=== PATIENT | female | born 1985 | race Caucasian/White ===

== ENCOUNTER 2020-05-19 01:21 | Emergency (ER) | payer BC, SELFPAY ==
[2020-05-19] VITALS (20 sets, daily range): BP systolic 113–134; BP diastolic 70–94; PULSE 62–94; RESP 14–26; TEMP 36.8; O2SAT 97–100
--- NOTE | ~2020-05-19 | CT_ITS ---
EXAMINATION: CT abdomen pelvis w con DATE: 05/19/2020 04:01 INDICATION: Umbilical pain. Leukocytosis. TECHNIQUE: Computed tomography (CT) of the abdomen and pelvis was performed with 100 cc Omnipaque 350 intravenous contrast. The dose-length product was 611.55 mGy-cm. Automated exposure control and iter ative reconstruction technique were employed. COMPARISON: None. FINDINGS: Lung bases are unremarkable. Heart size is normal. No significant pleural or pericardial ef fusion. No significant vascular abnormality. No lymphadenopathy. The liver, spleen, pancreas, adrenal glands and left kidney are unremarkable. There is mild fullness of the right renal collecting system and ureter, although no obstructing mass or stone is identified. There is bladder wall thickening. There is a menstrual cup in the pelvis. There are bilateral ovaria n cysts. There are uterine fibroids. Nonobstructive bowel gas pattern. Retroaortic left renal vein. G allbladder is present. IMPRESSION: 1. Bladder wall thickening. Consider correlation with urinalysis to exclude cystitis. 2: Mild fullness of the right renal collecting system and ureter without obstructing stone or mass. 3: Bilateral ovarian cysts, measuring 2.2 cm on the left. Uterine fibroids. Reviewed, dictated and finalized at location A. IMPRESSION: 1. Bladder wall thickening. Consider correlation with urinalysis to exclude cys titis. 2: Mild fullness of the right renal collecting system and ureter without obstr ucting stone or mass. 3: Bilateral ovarian cysts, measuring 2.2 cm on the left. Uterine fibroids.
--- NOTE | ~2020-05-19 | US_ITS ---
EXAMINATION: US pelvic complete DATE: 05/19/2020 05:48 INDICATION: Pelvic pain. Patient has menstrual cup in place. Comparison:CT dated 05/19/2020 TECHNIQUE: Multiple transabdominal and endovaginal sonographic images of the pelvis performed. FINDINGS: The uterus measures 9.8 x 4.2 x 4.8 cm.. There are uterine fibroids, largest measuring 2.9 x 2 x 2.5 cm. The endometrial complex measures 6 mm. The right ovary measures 3 x 1.8 x 1.8 cm and the left ovary measures 3.2 x 2.2 x 2.9 cm. There are bilateral ovarian cyst measuring 1.7 cm on the right and 2.2 cm on the left. There is normal Doppler signal in the ovaries. There is no free fluid in the pelvis. There are no abnormal masses seen on either side. IMPRESSION: 1. Small bilateral ovarian cysts, largest measuring 2.2 cm and the left ovary. 2: Uterine fibroids. Reviewed, dictated and finalized at location A.
--- NOTE | 2020-05-19 01:25 | ECG_ITS ---
Measurements Intervals [place] Rate: 66 P: 37 RI: 102 QRS: 50 QRSD: 85 T: 38 QT: 380 QTc: 400 Interpretive Statements SINUS RHYTHM WITH SINUS ARRHYTHMIA WITH SHORT RI INTERVAL BORDERLINE ECG Electronically Signed On 05-19-2020 8:27:46 CDT by Florencio Nieves D.O.
--- NOTE | 2020-05-19 01:25 | ED.ALLEREA ---
HPI - Allergic Reaction General Chief complaint: Allergic Reaction Stated complaint: Allergic reaction, throat swelling Time Seen by Provider: 05/19/20 01:25 Source: patient and family Mode of arrival: ambulatory Limitations: no limitations History of Present Illness HPI narrative: Patient is a 35-year-old female that presents for evaluation of rash, tingling feeling in throat, patient is concerned she is having an allergic reaction. Patient reports that she has extreme allergic reaction to mold. Patient states that she felt like her throat was spasming and thus came in for evaluation. She reports itching rash to her abdomen and thorax. She denies new soaps, lotions or detergents. She has numerous allergies to pollen, mold, etc. She denies any food or drug allergies. She denies any new medications. She did take 50 of Benadryl prior to coming to the emergency department for evaluation. Patient also states she has mild abdominal cramping and patient states she is on her menstrual cycle. She denies dysuria or hematuria. Patient currently taking prednisone prescribed by her primary care doctor for allergies. Related Data Home Medications Medication Instructions Recorded Confirmed albuterol sulfate 1 - 2 inh INHALATION Q4-6H PRN 05/19/20 cetirizine [Zyrtec] 20 mg PO BID 05/19/20 epinephrine [Auvi-Q] 0.3 mg IM ONCE 05/19/20 famotidine 40 mg PO BID 05/19/20 omalizumab [Xolair] 0 mg SUBCUT ONCE 05/19/20 prednisone 20 mg PO DIRECTED 05/19/20 triamcinolone acetonide [Nasacort] 2 spray INTRANASAL DAILY 05/19/20 Allergies Allergy/AdvReac Type Severity Reaction Status Date / Time montelukast [From Singulair] AdvReac Headache Verified 05/19/20 06:16 Review of Systems Review of Systems: Narrative: CONSTITUTIONAL: Denies fever, chills, or sweats. ENT: Denies rhinorrhea, congestion, sore throat, or otalgia. CARDIOVASCULAR: Denies chest pain, palpitations, or edema. RESPIRATORY: Denies cough or dyspnea. GASTROINTESTINAL: Reports mild abdominal pain, nausea without vomiting GENITOURINARY: Denies dysuria or hematuria. SKIN: Denies rash or itching. MUSCULOSKELETAL: Denies back pain, joint pain, or myalgia. NEUROLOGIC: Denies headache, numbness, or weakness. [facility] Past Medical History Medical History Concussion Pelvic fracture Seasonal allergies Social History Social History (Updated 05/19/20 @ 04:03 by Nevaeh Malhotra MD) Smoking status: Never smoker Alcohol intake: never Substance use: never Living arrangements: with family Gender identity (if verbalized by the patient): Female Exam Narrative: Exam Narrative: GENERAL: Awake, alert, conversant HEAD: Normocephalic, atraumatic. EYES: PERRLA and EOMI. ENT: Nares clear, no rhinorrhea or epistaxis. Mucous membranes moist. NECK: Supple. CHEST: No respiratory distress, breathing even and non labored HEART: Regular rate, sinus rhythm ABDOMEN:Non distended, mild periumbilical tenderness, guarding present, no rebound or rigidity EXTREMITIES: Normal range of motion. No edema. SKIN: Warm, dry, few, scattered urticaria to chest, lower abdomen and bilateral flanks NEURO:No focal deficits. Alert and oriented x3 Course Vital Signs Vital signs: Vital Signs Temperature 36.8 C 05/19/20 01:29 Pulse Rate 73 05/19/20 01:29 Respiratory Rate 14 05/19/20 01:29 Blood Pressure 134/94 H 05/19/20 01:29 Pulse Oximetry 100 05/19/20 01:29 Temperature 36.8 C 05/19/20 01:29 Pulse Rate 64 05/19/20 06:45 Respiratory Rate 20 05/19/20 06:45 Blood Pressure 115/76 05/19/20 06:45 Pulse Oximetry 97 05/19/20 06:45 MDM - Allergic Reaction MDM Narrative Medical decision making narrative: Patient presented for evaluation of hives, strange feeling her in her throat and concern for possible allergic reaction. Patient also having some mild abdominal pain without peritoneal signs. Patient currentl
[2020-05-19] MEDS: SODIUM CHLORIDE 0.9% IV 1,000 ML 999 ML IV CONT (01:50)
[2020-05-19] MEDS: methylPREDNISolone SOD SUCC 125 MG VIAL IV PUSH (01:50)
[2020-05-19] MEDS: FAMOTIDINE 20 MG/2 ML VIAL IV PUSH (01:52)
[2020-05-19] MEDS: ONDANSETRON INJ 4 MG/2 ML VIAL IV PUSH ×2 (01:54→03:44)
[2020-05-19] MEDS: diphenhydrAMINE HCl INJ 50 MG/ML VIAL IV PUSH (01:56)
[2020-05-19 02:03] LABS: Basophils Percent Auto 0.2 % (0.2-1.2); Hematocrit 39.2 % (37.0-47.0); Hemoglobin 13.6 g/dL (12.0-15.0); Immature Granulocyte Percent A 0.5 % (0-0.5); Lymphocytes Absolute Auto 2.73 K/mm3 (0.9-3.2); Lymphocytes Percent Auto 14.8 % (18.3-44.2); Mean Corpuscular HGB Conc 34.7 g/dl (32-36); Mean Corpuscular Hemoglobin 28.5 pg (26-34); Mean Corpuscular Volume 82.2 fl (80-100); Mean Platelet Volume 9.8 fl (7.4-10.4); Monocytes Absolute Auto 1.8 K/mm3 (0.1-0.6); Monocytes Percent Auto 9.7 % (2.6-8.5); Neutrophils Absolute Auto 13.8 K/mm3 (1.3-6.7); Neutrophils Percent Auto 74.8 % (45.5-73.1); Platelet Count Result 305 k/mm3 (150-375); Red Blood Count 4.77 M/mm3 (4.2-5.4); Red Cell Distribution Width 13.2 % (11.5-14.5); White Blood Count 18.5 K/mm3 (4.5-10.0)
[2020-05-19 02:11] LABS: Anion Gap 6 mmol/L (8-16); Blood Urea Nitrogen 12 mg/dL (7-17); Carbon Dioxide 25 mmol/L (22-30); Chloride 105 mmol/L (98-107); Estimated CRCL calculation 98 ml/min; Estimated Glomerular Filt Rate > 60; Glucose 127 mg/dL (65-105); Potassium 3.6 mmol/L (3.4-5.0); Sodium 136 mmol/L (137-145)
[2020-05-19] MEDS: EPINEPHrine HCL INJ 1 MG/ML AMPUL 0.3 MG IM (02:12)
--- NOTE | 2020-05-19 02:19 | PC.NURSE ---
PT ASKED BY THIS RN TO TRY AGAIN TO PROVIDE URINE SAMPLE. PT STATES THAT HE WILL TRY, BUT HE DOESN'T THINK HE CAN PROVIDE A URINE SAMPLE AT THIS TIME. THIS RN SUGGESTED TO PT THAT A STRAIGHT CATHETERIZATION COULD BE AN ALTERNATIVE. PT REFUSING TO BE STRAIGHT CATHETERIZED AT THIS TIME.
[2020-05-19] MEDS: MORPHINE SULFATE (*CRX) 4 MG/ML INJ IV PUSH (03:45)
[2020-05-19 03:48] LABS: Add Urine Microscopic? YES; Appearance Urine Clear (Clear); Bilirubin Urine Negative (Negative); Blood Urine 1+ (Negative); Color Urine Colorless (Yellow); Glucose Urine UA Negative (Negative); Ketones Urine Negative (Negative); Leukocyte Esterase Ur Negative LEU/UL (Negative); Nitrate Urine Negative (Negative); Protein Urine Negative (Negative); RBC Urine 0-2 /hpf (0-2); Squamous Epithelial Cell Urine Rare /hpf (Few); Urobilinogen Urine Negative mg/dL (<2.0)
[2020-05-19 03:50] LABS: Specific Grav Ur 1.004 (1.001-1.035)
[2020-05-19 04:20] LABS: Alanine Aminotransferase 15 U/L (4-35); Albumin Level 4.1 g/dL (3.5-5.1); Alkaline Phosphatase 51 U/L (38-126); Aspartate Amino Transferase 17 U/L (14-36); Bilirubin,Total 0.4 mg/dL (0.2-1.3); Lipase 143 U/L (23-300)
== END 2020-05-19 07:54 | disposition home or self-care (01) ==
PROVIDERS: Emergency Provider Emergency Medicine
DX: T78.40XA Allergy, unspecified, initial encounter (principal); R10.84 Generalized abdominal pain; N83.202 Unspecified ovarian cyst, left side; N83.201 Unspecified ovarian cyst, right side; D25.9 Leiomyoma of uterus, unspecified; R93.41 Abnormal radiologic findings on diagnostic imaging of renal pelvis, ureter, or bladder
CPT/HCPCS: 36415; 74177; 76856; 80048; 81001; 81025; 82040; 82247; 83690; 84075; 84155; 84450; 84460; 85025; 93005; 96361; 96372; 96374; 96375; 96376; 99284; J0171; J1200; J2270; J2405; J2930; J7030; Q9967

== ENCOUNTER 2020-05-25 02:16 | Emergency (ER) | payer BC, SELFPAY ==
--- NOTE | ~2020-05-25 | XR_ITS ---
EXAMINATION: XR chest 2V EXAM DATE: 05/25/2020 02:56 INDICATION: Palpitations, chest discomfort. TECHNIQUE: Frontal and lateral projections of the chest obtained and reviewed. There is no prior bridgette dy for comparison. FINDINGS: The lungs are clear. There are no pleural effusions. The cardiomediastinal silhouette is within normal limits. There is no pneumothorax suspected. The bones and soft tissues are unremarkab le. IMPRESSION: No acute cardiopulmonary findings. Reviewed, dictated and finalized at location A.
[2020-05-25 02:19] VITALS: BP 144/87; PULSE 84; RESP 15; TEMP 36.3; O2SAT 100
--- NOTE | 2020-05-25 02:25 | ECG_ITS ---
Measurements Intervals [place] Rate: 77 P: 20 VA: 100 QRS: 48 QRSD: 88 T: 50 QT: 376 QTc: 427 Interpretive Statements SINUS RHYTHM WITH SHORT VA INTERVAL INCOMPLETE RIGHT BUNDLE BRANCH BLOCK BORDERLINE ST ABNORMALITY- ANTERIOR LEADS BASELINE WANDER- I, II, AVR, V3 BORDERLINE ECG Electronically Signed On 05-29-2020 8:02:43 CDT by Florencio Nieves D.O.
[2020-05-25 03:00] VITALS: BP 128/83; PULSE 77; RESP 16; O2SAT 99
[2020-05-25 03:01] LABS: Basophils Percent Auto 0.3 % (0.2-1.2); Eosinophils Absolute Auto 0.2 K/mm3 (0-0.3); Eosinophils Percent Auto 1.5 % (0-4.4); Hematocrit 41.9 % (37.0-47.0); Hemoglobin 14.6 g/dL (12.0-15.0); Immature Granulocyte Absolute 0.08 K/mm3 (0.00-0.031); Immature Granulocyte Percent A 0.6 % (0-0.5); Lymphocytes Absolute Auto 5.75 K/mm3 (0.9-3.2); Lymphocytes Percent Auto 40.7 % (18.3-44.2); Mean Corpuscular HGB Conc 34.8 g/dl (32-36); Mean Corpuscular Hemoglobin 28.3 pg (26-34); Mean Corpuscular Volume 81.2 fl (80-100); Mean Platelet Volume 9.5 fl (7.4-10.4); Monocytes Percent Auto 7.4 % (2.6-8.5); Neutrophils Percent Auto 49.5 % (45.5-73.1); Platelet Count Result 289 k/mm3 (150-375); Red Blood Count 5.16 M/mm3 (4.2-5.4); Red Cell Distribution Width 12.9 % (11.5-14.5); White Blood Count 14.1 K/mm3 (4.5-10.0)
[2020-05-25 03:04] LABS: Prothrombin Time 12.8 Seconds (11.1-14.7)
[2020-05-25 03:05] LABS: Anion Gap 9 mmol/L (8-16); Blood Urea Nitrogen 9 mg/dL (7-17); Carbon Dioxide 30 mmol/L (22-30); Chloride 100 mmol/L (98-107); Estimated Glomerular Filt Rate > 60; Glucose 86 mg/dL (65-105); Partial Thromboplastin Time 24.8 SECONDS (22.3-36.8); Potassium 3.2 mmol/L (3.4-5.0); Sodium 139 mmol/L (137-145)
[2020-05-25 03:17] LABS: Troponin I < 0.012 ng/mL (0.000-0.034)
[2020-05-25 03:30] LABS: Platelet Estimate Adequate (Adequate)
[2020-05-25 03:31] LABS: Atypical Lymphocytes Present
[2020-05-25 04:00] VITALS: BP 125/85; PULSE 69; RESP 12; O2SAT 99
[2020-05-25] MEDS: ACETAMINOPHEN 500 MG TABLET 1000 MG PO (04:01)
--- NOTE | 2020-05-25 04:34 | ED.ARRPALP ---
HPI - Arrhythmia/Palpitations General Chief Complaint: Arrhythmia/Palpitations Stated Complaint: elevated heart rate Time Seen by Provider: 05/25/20 02:24 History of Present Illness HPI narrative: Patient is a 35-year-old female who presents ER with palpitations. Began earlier in the evening around 7:54 PM. Heart rate got up to 120 bpm but then went down to the 80s. It is associated some mild chest pressure. No fevers or chills or sweats. No runny nose/sore throat or productive cough. No shortness of breath. She does not feel like her throat swelling like it was all the night when she was here for a allergic reaction. Patient then was able to go to bed. She woke up and was still feeling some anxiousness and chest tightness and thought she come be evaluated. Related Data Home Medications Medication Instructions Recorded Confirmed albuterol sulfate 1 - 2 inh INHALATION Q4-6H PRN 05/19/20 cetirizine [Zyrtec] 20 mg PO BID 05/19/20 epinephrine [Auvi-Q] 0.3 mg IM ONCE 05/19/20 famotidine 40 mg PO BID 05/19/20 omalizumab [Xolair] 0 mg SUBCUT ONCE 05/19/20 prednisone 20 mg PO DIRECTED 05/19/20 triamcinolone acetonide [Nasacort] 2 spray INTRANASAL DAILY 05/19/20 Allergies Allergy/AdvReac Type Severity Reaction Status Date / Time montelukast [From Singulair] AdvReac Headache Verified 05/19/20 06:16 Review of Systems Review of Systems: All systems reviewed & are unremarkable except as noted in HPI and below Constitutional: Constitutional: Denies chills, Denies fever(s) and Denies weakness ENT: Denies nasal congestion and Denies sore throat Cardiovascular: Cardiovascular: Reports chest pain, Reports rapid heart rate and Denies radiating jaw, neck or arm pain Respiratory: Respiratory: Denies cough, Denies dyspnea and Denies wheezing Gastrointestinal: Gastrointestinal: Denies abdominal pain, Denies nausea and Denies vomiting [facility] Past Medical History Medical History (Updated 05/25/20 @ 04:39 by Kristopher Cordero MD) Concussion Pelvic fracture Seasonal allergies Surgical History Surgical History (Updated 05/25/20 @ 04:35 by Kristopher Cordero MD) No history of previous surgery Social History Social History (Updated 05/19/20 @ 04:03 by Nevaeh Malhotra MD) Smoking status: Never smoker Alcohol intake: never Substance use: never Gender identity (if verbalized by the patient): Female Exam Narrative: Exam Narrative: GENERAL: Well-appearing, well-nourished, and in no acute distress. HEAD: Normocephalic, atraumatic. EYES: PERRL and EOMI. ENT: Mucous membranes moist. CHEST: Clear to auscultation. No respiratory distress. HEART: Regular rate and rhythm. Normal peripheral pulses. ABDOMEN: Soft, nontender, nondistended. EXTREMITIES: Normal range of motion. No edema. NEURO: Alert and oriented x3. PSYCH: Normal mood and affect. Course Course Emergency Course: Unremarkable evaluation. Discharge home. Vital Signs Vital signs: Vital Signs Temperature 97.3 F L 05/25/20 02:19 Pulse Rate 84 05/25/20 02:19 Respiratory Rate 15 05/25/20 02:19 Blood Pressure 144/87 H 05/25/20 02:19 Pulse Oximetry 100 05/25/20 02:19 Temperature 97.3 F L 05/25/20 02:19 Pulse Rate 84 05/25/20 02:19 Respiratory Rate 15 05/25/20 02:19 Blood Pressure 144/87 H 05/25/20 02:19 Pulse Oximetry 100 05/25/20 02:19 MDM - Arrhythmia/Palpitations Lab Data Result diagrams: 05/25/20 02:47 05/25/20 02:47 Labs: Lab Results 05/25/20 05/25/20 05/25/20 Range/Units 02:47 02:47 02:47 WBC 14.1 H (4.5-10.0) K/mm3 RBC 5.16 (4.2-5.4) M/mm3 Hgb 14.6 (12.0-15.0) g/dL Hct 41.9 (37.0-47.0) % MCV 81.2 (80-100) fl MCH 28.3 (26-34) pg MCHC 34.8 (32-36) g/dl RDW 12.9 (11.5-14.5) % Plt Count 289 (150-375) k/mm3 MPV 9.5 (7.4-10.4) fl Immature Gran % (Auto) 0.6 H (0-0.5) % Neut % (Auto) 49.5 (45.5-73.1) % L
[2020-05-25 04:50] VITALS: BP 129/83; PULSE 71; RESP 17; O2SAT 99
== END 2020-05-25 05:00 | disposition home or self-care (01) ==
PROVIDERS: Emergency Provider Emergency Medicine
DX: R00.2 Palpitations (principal); I45.10 Unspecified right bundle-branch block; R94.31 Abnormal electrocardiogram [ECG] [EKG]
CPT/HCPCS: 36415; 71046; 80048; 84484; 85025; 85610; 85730; 93005; 99284; A9270

== ENCOUNTER 2020-07-14 08:41 | Outpatient (NON) | payer BC, SELFPAY ==
[2020-07-16 16:41] LABS: SARS-CoV-2 RNA PCR Negative
== END 2020-07-14 08:42 ==
LOC: ANHCOVIDDT 08:43
PROVIDERS: PCP Nurse Practitioner Family; Visit Provider Nurse Practitioner Family
DX: Z20.828 Contact with and (suspected) exposure to other viral communicable diseases (principal)
CPT/HCPCS: 87635; C9803; U0003

== ENCOUNTER 2020-08-03 14:44 | Emergency (ER) | payer BC, SELFPAY ==
[2020-08-03] VITALS (7 sets, daily range): BP systolic 120–142; BP diastolic 72–95; PULSE 89–106; RESP 16–22; TEMP 36.2; O2SAT 97–100
--- NOTE | 2020-08-03 15:17 | ED.ALLEREA ---
HPI - Allergic Reaction General Chief complaint: Allergic Reaction Stated complaint: allergic reaction for 8 days Time Seen by Provider: 08/03/20 15:06 Source: patient Mode of arrival: ambulatory Limitations: no limitations History of Present Illness HPI narrative: 35 years old white female complaining of chest tightness, throat tightness and itching hives started 8 days ago. Patient been managed by an interlocking tower operator and last time was seen by him 3 weeks ago. Patient requesting Decadron, Benadryl, Pepcid, and epinephrine. Currently patient on Zyrtec 20 mg twice a day, Pepcid 40 mg twice a day. Related Data Home Medications Medication Instructions Recorded Confirmed albuterol sulfate 1 - 2 inh INHALATION Q4-6H PRN 05/19/20 cetirizine [Zyrtec] 20 mg PO BID 05/19/20 epinephrine [Auvi-Q] 0.3 mg IM ONCE 05/19/20 famotidine 40 mg PO BID 05/19/20 omalizumab [Xolair] 0 mg SUBCUT ONCE 05/19/20 triamcinolone acetonide [Nasacort] 2 spray INTRANASAL DAILY 05/19/20 Allergies Allergy/AdvReac Type Severity Reaction Status Date / Time montelukast [From Singulair] AdvReac Headache Verified 08/03/20 15:01 Review of Systems Review of Systems: Narrative: CONSTITUTIONAL: Denies fever, chills, or sweats. EYES: Denies visual changes, redness, or discharge. ENT: Denies rhinorrhea, congestion, sore throat, or otalgia. CARDIOVASCULAR: Denies chest pain, palpitations, or edema. RESPIRATORY: Denies cough or dyspnea. GASTROINTESTINAL: Denies abdominal pain, nausea, vomiting, or diarrhea. GENITOURINARY: Denies dysuria or hematuria. SKIN: Itching rash MUSCULOSKELETAL: Denies back pain, joint pain, or myalgia. NEUROLOGIC: Denies headache, numbness, or weakness. PSYCHIATRIC: Denies anxiety or depression. [facility] Past Medical History Medical History Concussion Pelvic fracture Seasonal allergies Surgical History Surgical History No history of previous surgery Social History Social History Smoking status: Never smoker Alcohol intake: never Substance use: never Gender identity (if verbalized by the patient): Female Exam Narrative: Exam Narrative: General appearance: Well-developed, well-nourished, patient looks very comfortable, oxygenation on room air 100% Skin: Normal color, no rash Head: Normocephalic, nontraumatic Eyes: Clear conjunctiva ENT: Oropharynx normal, ears normal, nose normal Neck: Supple, nontender Chest and respiratory: Airway patent, no respiratory distress, no accessory muscle use Heart: Regular rate/rhythm Abdomen: Soft, nontender, no organomegaly, quiet bowel sounds Vascular: Normal peripheral pulses, normal capillary refill. Musculoskeletal: Normal range of motion, nontender back Neurologic: Alert and oriented ?3, SPEECH LANGUAGE PATHOLOGIST ASSISTANT is normal as tested, no gross motor deficit Course Course Emergency Course: Stable Vital Signs Vital signs: Vital Signs Temperature 36.2 C L 08/03/20 14:48 Pulse Rate 104 H 08/03/20 14:48 Respiratory Rate 19 08/03/20 14:48 Blood Pressure 135/91 H 08/03/20 14:48 Pulse Oximetry 100 08/03/20 14:48 Temperature 36.2 C L 08/03/20 14:48 Pulse Rate 96 08/03/20 18:01 Respiratory Rate 20 08/03/20 18:01 Blood Pressure 130/77 08/03/20 18:01 Pulse Oximetry 100 08/03/20 18:01 MDM - Allergic Reaction MDM Narrative Medical decision making narrative: Chronic allergy Critical Care Time Critical Care Time Critical Care Time: No Discharge Plan Discharge Clinical Impression: Allergic reaction Qualifiers: Encounter type: initial en
[2020-08-03] MEDS: EPINEPHrine HCL INJ 1 MG/ML AMPUL 0.3 MG IM (15:33)
[2020-08-03] MEDS: FAMOTIDINE 20 MG/2 ML VIAL 40 MG IV PUSH (15:33)
[2020-08-03] MEDS: diphenhydrAMINE HCl INJ 50 MG/ML VIAL IV PUSH (15:34)
== END 2020-08-03 19:17 | disposition home or self-care (01) ==
PROVIDERS: Emergency Provider Emergency Medicine; PCP Nurse Practitioner Family
DX: T78.40XA Allergy, unspecified, initial encounter (principal)
CPT/HCPCS: 96372; 96374; 96375; 99284; J0171; J1100; J1200

== ENCOUNTER 2020-11-07 21:51 | Emergency (ER) | payer BC, SELFPAY ==
[2020-11-07 21:54] VITALS: BP 135/90; PULSE 86; RESP 20; TEMP 37; O2SAT 100
--- NOTE | 2020-11-07 22:33 | PC.NURSE ---
pt to triage nurse I am going to go home, i dont want to wait. Triage nurse explained that she is the next person in line and will get pulled o a room as soon as possible if she wanted to stay. PT states I only came b/c my allergen dr told me to, i dont know. i think im going home. if it gets worse i live 10 minutes away i will come back. I dont even know what you can do for me.
== END 2020-11-07 23:06 | disposition left against medical advice (07) ==
LOC: ANHED 22:39
PROVIDERS: PCP Nurse Practitioner Family
DX: R22.1 Localized swelling, mass and lump, neck (principal)
CPT/HCPCS: 99199

== ENCOUNTER 2023-05-14 19:11 | Outpatient (NON) | payer BC, SELFPAY | END 2023-05-14 19:12 | disposition home or self-care (01) | LOC: ANHGOSHLAB 19:13 | PROVIDERS: PCP Family Medicine; Visit Provider Family Medicine | DX: R30.0 Dysuria (principal) | CPT/HCPCS: 87077; 87086; 87088; 87186 ==

== ENCOUNTER 2025-04-27 10:39 | Outpatient (RCR) | payer BC, SELFPAY ==
[2025-04-27 10:50] VITALS: BMI 25.8
[2025-04-27 10:51] VITALS: BMI 25.8
--- NOTE | 2025-04-27 15:34 | PCDIET ---
04/27/25: MNT Consult note faxed to referring provider at [facility]
== END 2025-07-24 10:46 | disposition home or self-care (01) ==
LOC: ANHDMC 10:39
PROVIDERS: PCP Family Medicine; Visit Provider Nurse Practitioner
DX: G90.A Postural orthostatic tachycardia syndrome [POTS] (principal); Q79.60 Ehlers-Danlos syndrome, unspecified; Z91.018 Allergy to other foods; Z71.3 Dietary counseling and surveillance
CPT/HCPCS: 97802

== ENCOUNTER 2025-08-09 20:48 | Emergency (ER) | payer BC, SELFPAY ==
--- OUTSIDE RECORDS SUMMARY | 2025-08-08 14:00 | XMS_ITS | Encounter Summary ---
Author Organization [facility] Address [address] [facility] [place] [address] Care Team Providers Care Site Lead Name Role Phone Luann Valdovinos [facility] Primary Care Provi murtaza Pooja Moe MD Unavailable [phone] Reason for Referral * Consultation (Routine) - Authorized Specialty Diagnoses / Procedures Referred By Tonya ragsdale Referred To Contact Diagnoses POTS (postural orthostatic tachycardia syndrome) EDS (Maryam-Danlos syndrome) ([facility]) Small fiber neuropathy Other fatigue Pooja Moe MD [address] [place] [address] Phone: tel: fax: Kory Pyle DO [address] [facility] [address] [place] [address] Phone: tel: fax: Referral ID Status Reason Start Date Expiration Date Visits Requested Visits Authorized [id number] Authorized Specialty Services Required 08/08/2026 1 1 NING ENGINEER * Consultation (Routine) - Authorized Specialty Diagnoses / Procedures Referred By Tonya ragsdale Referred To Contact Diagnoses EDS (Maryam-Danlos syndrome) (HCC) Pooja Moe MD [address] [place] [address] Phone: tel: fax: Noe Chaudhari MD [address] [facility] [address] [place] [address] Phone: tel: fax: Referral ID Status Reason Start Date Expiration Date Visits Requested Visits Authorized [id number] Authorized Specialty Services Required 08/08/2026 1 1 NING ENGINEER Reason for Visit * Reason Comments Follow-up Dysautonomia,Migrain es Encounter Details Date Type Department Care Team (Late st Contact Info) Description 08/08/2025 2:00 PM LEARNING ENGINEER Office Visit [facility] [address] [facility] [address] [place] [id number] Pooja Moe MD [address] [place] [id number] Chronic migraine without aura without status migrainosus, not intractable (Primary Dx); Cramps, extremity; POTS (postural orthostatic tachycardia syndrome); EDS (Maryam-Danlos syndrome) (HCC); Bilateral sciatica; Small fiber neuropathy; Other fatigue Social History Tobacco Use Types Packs/Day Years Used Date Smoking Tobacco: Never Smokeless Tobacco: Never Alcohol Use Standard Drinks/Week Comments Yes 0 (1 standard drink = 0.6 oz pur e alcohol) rarely PHQ-2 Answer Date Recorded Patient Health Questionnaire-2 Score 0 12/26/2024 Comments No Sex and Gender Information Value Date Recorded Sex Assigned at Not on file Legal Sex Female 9:35 AM LEARNING ENGINEER Gender Identity Not on file Sexual Orientation Not on file 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 Not on file Not on file Not on file documented as of this encounter Last Filed Vital Signs Vital Sign Reading Time Taken Comments Blood Pressure 115/66 08/08/2025 2:10 PM LEARNING ENGINEER Pulse 71 08/08/2025 2:10 PM LEARNING ENGINEER Temperature - - Respiratory Rate - - Oxygen Saturation - - Inhaled Oxygen Concentration - - Weight 65.8 kg (145 lb) 08/08/2025 2:10 PM LEARNING ENGINEER Height 160 cm (5' 3) 08/08/2025 2:10 PM LEARNING ENGINEER Body Mass Index 25.69 08/08/2025 2:10 PM LEARNING ENGINEER documented in this encounter Patient Instructions * Patient Instructions* Pooja Moe MD - 08/07/2025 9:40 AM LEARNING ENGINEER Impression: 1) Chronic Migraine. 2) Hypermobility. 3) POTS 4) Muscle cramping 5) ME/CFS? Assessment & Plan Most disabling is fatigue, generalized pain, postural dizziness. Wants eval for CCI due to persistent pain, bilateral leg weakness. In WC since Thanksgiving due to postural dizziness. Leg cramping 70-90% better with CD/LD w Candy. Botox continues to be effective for chronic migraine 50-75% reduction. Has chronic fatigue for over a year. Unclear cause. Functional Range is 10-50%, more bad than good 1 - 10% energy, severe smptoms at rest, including very poor concentration; inbed most o the day; need assistance with self-care activities (e.g. tub bath). 5 - 50% energy, mild symptoms at rest with fairly good concentration for short periods (15 minutes); need a.m. and p.m. rest; can do independent self-care and moderate activities of daily living, buthave slight post exertion fatigue; can walk 10-20 minutes per day. 1. POTS Plan: - Continue Corlanor for POTS - Schedule next appointment for POTS 2. Craniocervical instability Plan: - Referral to Dr. Lorenzo Chaudhari at [facility] for CCI evaluation- Follow-up with Dr. Ventura for CCI evaluation 3. Generalized pain Plan: - Monitor and manage pain and joint instability - Schedule next appointment for pain 4. Muscle cramps Plan: - Continue carbidopa/levodopa for muscle cramps 5. Chronic migraine Plan: - Continue Botox for migraines - Schedule next appointment for migraines Visit Summary: Reason for visit: Discussed POTS impact, heart rate spikes, postural dizziness, joint instability, pain, muscle cramps, and chronic migraines. Treatment: - Continue Corlanor for POTS -Referral to Dr. Ventura at [facility] for CCI evaluation - Continue carbidopa/levodopa for muscle cramps - Continue Botox for migraines - Monitor and manage pain and joint instability Prevention: - Protective factors: wheelchair use to prevent falls and conserve energy Next steps: - Schedule next appointment for POTS, pain, migraines - Follow-up with Dr. Ventura for CCI evaluation I will plan to see Lori Gamboa again in 6 months. NING ENGINEER NING ENGINEER NING ENGINEER NING ENGINEER documented in this encounter Progress Notes * Pooja Moe MD - 08/08/2025 2:16 PM CST Re: Lori Gamboa I saw Lori Gamboa in the office for a follow up. She is a 40 year old female with a history of chronic migraines,hypermobility,POTS and muscle cramping. Patient was last seen on 12/26/2024 with the followin) Chronic Migraine. 2) Hypermobility. 3) POTS 4) Muscle cramping Still struggling with muscle cramping. She has concerns this is dystonia. EMG and skin biopsy were normal. Exam not suggested of small fiber neuropathy, consider cramp-fasciculation syndrome, dystonia. Migraines less controlled recently. PLAN ALBERT Ab and PNP. Plus CK, Copper. Trial of oxcarbazepine. Call with update in 3-4 weeks. Consider replacing Emgality with Qulipta. Continue Botox. History of Present Illness The patient is a 40-year-old female with POTS, craniocervical instability, generalized pain, musclecramps, and chronic migraine. She reports increased fatigue and POTS symptoms, including near-fainting episodes. She started Corlanor 1-[address] Damon, which has reduced her resting heart rate from the 80s-90s to [id number]. Despite this improvement, her heart rate still spikes during activities, previously reaching 140-160 and now around 120, and she experiences persistent lightheadedness upon standing or sitting up. Prior to starting Corlanor, she experienced a heart rate drop from 86-87 to 43 during physical therapy, nearly resulting in syncope. She has been using a wheelchair since the Thursday before to manage her POTS symptoms. She continues to receive Botox injections for migraines, which have been beneficial, but she still experiences significant movement. She has a history of instability and discussed craniocervical instability with Candy in December 2024. She is currently experiencing a 4-day migraine. She is not interested in surgery but seeks more information. She reports increased movement due to EDS and ongoing fatigue despite the improved resting heart rate. Her most disabling symptoms are fatigue, generalized pain, and postural dizziness. She recently hada knee dislocation, hip and shoulder dislocations during sleep, and a sensation of body parts not staying in place. She reports scalp pain due to the weight of her hair and unintentional hair thinning over the past two years. She has a scheduled swallow study tomorrow. She does not have reflux but reports tightness and intermittent loss of voice, which has worsened over the past two years. Her leg cramps have improved by 90% with carbidopa/levodopa, which she started in the summer. Past medical history, social history, family history are otherwise unchanged since prior visit. A ten system review is unchanged since prior visit, with the following exceptions. Medicines include: Medications[1] On examination, vital signs are as follows: BP 115/66 (Patient Position: Lying) Pulse 71 Ht 1.6 m (5' 3) Wt 65.8 kg (145 lb) Orthostatic B/P Supine 115/66 P 71 Standing 129/79 P 76 2 min 120/77 P 75 3 min 117/74 P 78 General appearance: well developed, in no distress Mental Status: Awake, alert oriented. Follows commands, speech fluent. Cranial nerves: extraocular movements intact. Facial movement intact, symmetric. Facial sensation intact. Hearing intact to conversation. Tongue midline. Shoulder shrug symmetric. Motor: limb movements and strength symmetrc. nromal tone. Gait WC Impression: 1) Chronic Migraine. 2) Hypermobility. 3) POTS 4) Muscle cramping 5) ME/CFS? Assessment & Plan Most disabling is fatigue, generalized pain, postural dizziness. Wants eval for CCI due to persistent pain, bilateral leg weakness. In WC since due to postural dizziness. Leg cramping 70-90% better with CD/LD w Candy. Botox continues to be effective for chronic migraine 50-75% reduction. Has chronic fatigue for over a year. Unclear cause. Functional Range is 10-50%, more bad than good 1 - 10% energy, severe smptoms at rest, including very poor concentration; inbed most o the day; need assistance with self-care activities (e.g. tub bath). 5 - 50% energy, mild symptoms at rest with fairly good concentration for short periods (15 minutes); need a.m. and p.m. rest; can do independent self-care and moderate activities of daily living, buthave slight post exertion fatigue; can walk 10-20 minutes per day. 1. POTS Plan: - Continue Corlanor for POTS - Schedule next appointment for POTS 2. Craniocervical instability Plan: - Referral to Dr. Lorenzo Chaudhari at [facility] for CCI evaluation- Follow-up with Dr. Ventura for CCI evaluation 3. Generalized pain Plan: - Monitor and manage pain and joint instability - Schedule next appointment for pain 4. Muscle cramps Plan: - Continue carbidopa/levodopa for muscle cramps 5. Chronic migraine Plan: - Continue Botox for migraines - Schedule next appointment for migraines Visit Summary: Reason for visit: Discussed POTS impact, heart rate spikes, postural dizziness, joint instability, pain, muscle cramps, and chronic migraines. Treatment: - Continue Corlanor for POTS -Referral to Dr. Ventura at [facility] for CCI evaluation - Continue carbidopa/levodopa for muscle cramps - Continue Botox for migraines - Monitor and manage pain and joint instability Prevention: - Protective factors: wheelchair use to prevent falls and conserve energy Next steps: - Schedule next appointment for POTS, pain, migraines - Follow-up with Dr. Ventura for CCI evaluation I will plan to see Lori Gamboa again in 6 months. The total time spent today was 40 minutes performing chart prep, review of data and visit with the patient. [1] Current Outpatient Medications: acetaminophen (Tylenol) 325 MG tablet, Take 2 (two) tablets by mouth every 6 hours as needed, Disp:, Rfl: albuterol HFA (PROVENTIL; VENTOLIN; PROAIR) 108 (90 Base) MCG/ACT inhaler, Inhale 2 (two) puffs by mouth as needed, Disp: , Rfl: Atogepant (Qulipta) 60 MG TABS, Take 1 (one) tablet by mouth once daily, Disp: 90 tablet, Rfl: 3 carbidopa-levodopa (Sinemet) 25-100 MG tablet, Take 1 (one) tablet by mouth 3 times daily, Disp: 270 tablet, Rfl: 3 Cromolyn Sodium 100 MG/5ML, Take 5-10 mL by mouth 4 times daily, Disp: , Rfl: drospirenone-ethinyl estradiol (Candi) 3-0.03 MG tablet, once daily, Disp: , Rfl: Dupixent 300 MG/2ML prefilled pen, Inject 4 mL subcutaneously once (Patient taking differently: Inject 4 mL subcutaneously every 14 days), Disp: , Rfl: EPINEPHrine (EPIPEN) 0.3 MG/0.3ML auto-injector pen, as directed, Disp: , Rfl: famotidine (Pepcid) 40 MG tablet, 1 (one) tablet 2 times daily, Disp: , Rfl: fluticasone-salmeterol 113-14 MCG/ACT inhaler, 2 times daily, Disp: , Rfl: Humira 40 MG/0.8ML injection, every 7 days, Disp: , Rfl: hydroxychloroquine (Plaquenil) 200 MG tablet, Take 2 (two) tablets by mouth every evening, Disp: , Rfl: ivabradine (Corlanor) 5 MG tablet, Take 1 (one) tablet by mouth 2 times daily with morning and evening meal, Disp: , Rfl: IVERMECTIN EX, as directed Ivermectin 1.2% Niacinamide 2 % compound gel, Disp: , Rfl: levocetirizine (Xyzal) 5 MG tablet, Take 2 (two) tablets by mouth 2 times daily, Disp: , Rfl: Naltrexone HCl, Use 4.5 mg at bedtime, Disp: , Rfl: onabotulinumtoxin A (Botox) 200 units injection, by Injection route as directed, Disp: , Rfl: sodium chloride 0.9 % nebulizer solution, once daily as needed, Disp: , Rfl: Tiotropium [place] Monohydrate (Spiriva Respimat) 1.25 MCG/ACT AERS, Inhale 2 puffs by mouth once daily, Disp: , Rfl: tiZANidine (Zanaflex) 2 MG tablet, Take 1 (one) tablet by mouth every 8 hours as needed, Disp: , Rfl: traMADol (Ultram) 50 MG tablet, Take 1 (one) tablet by mouth 3 times daily as needed, Disp: , Rfl: NING ENGINEER documented in this encounter Plan of Treatment Upcoming Encounters Date Type Department Care Team (Late st Contact Info) Description 10/18/2025 9:15 AM LEARNING ENGINEER Procedure visit [facility] [address] [place] [address] Candy Christensen [facility] [address] [place] [id number] 02/07/2026 10:00 AM CDT Office Visit [facility] [address] [place] [address] Candy Christensen, FARM APPRAISER[employer]LINUX NETWORK ENGINEER [address] [place] [address] Scheduled Referrals Name Type Priority Associated Diagnoses Order Schedule AMB REFERRAL TO NEUROSURGERY Outpatient Referral Routine EDS (Maryam-Danlos syndrome) (HCC) 1 Occurrences starting 08/08/2025 until 08/08/2026 AMB REFERRAL TO INTERNAL MEDICINE Outpatient Referral Routine POTS (postural orthostatic tachycardia syndrome) EDS (Maryam-Danlos syndrome) (HCC) Small fiber neuropathy Other fatigue 1 Occurrences starting 08/08/2025 until 08/08/2026 documented as of this encounter Visit Diagnoses Diagnosis Chronic migraine without aura without status migrainosus, not intractable- Primary Chronic migraine without aura, without mention of intractable migraine without mention of status migrainosus Cramps, extremity Cramp of limb POTS (postural orthostatic tachycardia syndrome) Tachycardia, unspecified EDS (Maryam-Danlos syndrome) (HCC) Maryam-Danlos syndrome Bilateral sciatica Sciatica Small fiber neuropathy Unspecified hereditary and idiopathic peripheral neuropathy Other fatigue documented in this encounter Care Teams Site Lead Relationship Specialty Start Date End Date Luann Valdovinos, FARM AP[employer]AIS[employer] NETWORK ENGINEER [address] [place] [address] PCP - General Nurse Practitioner 12/07/23 Pooja Moe MD [facility] [address] Neurology 02/22/24 documented as of this encounter
--- OUTSIDE RECORDS SUMMARY | 2025-08-09 13:07 | XMS_ITS | Encounter Summary ---
Author Organization [facility] Healthcare Address [address] [place] [address] Care Team Providers Care Medical Sociologist Name Role Phone Luann Valdovinos MD Primary Care Provider [phone] JeancarlosDarlene MD Unavailable [phone] Reason for Referral * Diagnostic Imaging (Routine) - Closed Specialty Diagnoses / Procedures Referred By Devorahac t Referred To Contact Diagnoses Dysphagia, oropharyngeal Procedures [place] Modified Barium Swallow W Video Darren Tai MD [address] [id number] Phone: tel: fax: [place] [address] [place] [address] Referral ID Status Reason Start Date Expiration Date Visits Re quested Visits Authorized [id number] Closed 07/17/2025 08/16/2026 1 1 L PRESS OPERATOR Reason for Visit * Diagnostic Imaging (Routine) - Closed Specialty Diagnoses / Procedures Referred By Contac t Referred To Contact Diagnoses Dysphagia, oropharyngeal Procedures FL Modified Barium Swallow W Video Darren Tai MD [address] [address] Phone: tel: fax: [place] [address] [place] [address] Referral ID Status Reason Start Date Expiration Date Visits Re quested Visits Authorized [id number] Closed 07/17/2025 08/16/2026 1 1 Encounter Details Date Type Department Care Team (Latest Contact Info) Description 08/09/2025 1:07 PM WHEEL PRESS OPERATOR Hospital Encounter [facility] [address] [place] [address] Dysphagia, oropharyngeal Social History Tobacco Use Types Packs/Day Years Used Date Smoking Tobacco: Never Smokeless Tobacco: Never AUDIT-C Answer Date Recorded Frequency of Alcohol Consumption Not on file 04/28/2025 Q2: How many drinks containi ng alcohol do you have on a typical day when you are drinking? Not on file 04/28/2025 Frequency of Binge Drinking Less than monthly Comments Unknown Sex and Gender Information Value Date Recorded Sex Assigned at Not on file Legal Sex Female 11:14 AM CDT Gender Identity Female 12/09/2021 6:29 PM CDT Sexual Orientation Straight 12/09/2021 6: 29 PM CDT documented as of this encounter Plan of Treatment Not on file documented as of this encounter Procedures Procedure Name Priority Date/Time Associated Diagnosis Comments FL MODIFIED BARIUM SWALLOW W VIDEO Schedule Routine, Read Routine (OP Routine) 08/09/2025 2:10 PM WHEEL PRESS OPERATOR Dysphagia, oropharyngeal documented in this encounter Results * FL Modified Barium Swallow W Video (08/09/2025 2:10 PM WHEEL PRESS OPERATOR) Anatomical Region Laterality Modality Head and Neck N/A Radio Fluoroscop y 08/09/2025 2:42 PM WHEEL PRESS OPERATOR Impressions 08/09/2025 2:43 PM WHEEL PRESS OPERATOR The swallowing mechanism is normal; see above comments. Please refer to the Speech Pathology procedure note for safe swallow recommendations as well as additional information regarding the oral-pharyngeal swallow function, plan of care, and recommended follow up. Dictated by: Justin Braun MD The radiology attending physician has personally reviewed this study, and had reviewed and/or edited this written report and agrees with it. Electronically signed by: Geena Davis M.D. Narrative 08/09/2025 2:43 PM WHEEL PRESS OPERATOR EXAMINATION: MODIFIED BARIUM SWALLOW HISTORY: Dysphagia. TECHNIQUE: This procedure was completed in conjunction with a Speech Language Pathologist. The patient was given barium of multiple different consistencies to swallow. Video fluoroscopy was employed during the exam. FINDINGS: Oral-pharyngeal swallow function is within normal limits. Penetration: No Aspiration: No Residue:No Other comments: None Procedure Note Geena Davis MD - 08/09/2025 EXAMINATION: MODIFIED BARIUM SWALLOW HISTORY: Dysphagia. TECHNIQUE: This procedure was completed in conjunction with a Speech Language Pathologist. The patient was given barium of multiple different consistencies to swallow. Video fluoroscopy was employed during the exam. FINDINGS: Oral-pharyngeal swallow function is within normal limits. Penetration: No Aspiration: No Residue:No Other comments: None IMPRESSION: The swallowing mechanism is normal; see above comments. Please refer to the Speech Pathology procedure note for safe swallow recommendations as well as additional information regarding the oral-pharyngeal swallow function, plan of care, and recommended follow up. Dictated by: Justin Braun MD The radiology attending physician has personally reviewed this study, and had reviewed and/or edited this written report and agrees with it. Electronically signed by: Geena Davis M.D. Darren Tai MD IMG FLUOROSCOPY PROCEDUR ES Final Result documented in this encounter Visit Diagnoses Diagnosis Dysphagia, oropharyngeal Dysphagia, oropharyngeal phase documented in this encounter Administered Medications Inactive Administered Medications - up to 3 most recent administrations Medication Order MAR Action Action Date Dose Rate Site barium sulfate (E-Z DISK) 700 mg tablet 700 mg 700 mg, oral, Once in imaging, contrast, Starting on Thu08/09/25 at 1357, For 1 dose Contrast Given 08/09/2025 2:11 PM WHEEL PRESS OPERATOR 700 mg barium sulfate (VARIBAR NECTAR) 40 % (w/v) nectar oral, Once in imaging, contrast, Starting on Thu08/09/25 at 1357, For 1 dose, Shake well Contrast Given 08/09/2025 1:59 PM WHEEL PRESS OPERATOR barium sulfate (VARIBAR PUDDING) 40 % (w/v), 30% (w/w) pudding oral, Once in imaging, contrast, Starting on Thu08/09/25 at 1357, For 1 dose Contrast Given 08/09/2025 1:59 PM WHEEL PRESS OPERATOR barium sulfate (VARIBAR THIN LIQUID) 81 % (w/w) thin liquid oral, Once in imaging, contrast, Starting on Thu08/09/25 at 1357, For 1 dose Contrast Given 08/09/2025 1:58 PM WHEEL PRESS OPERATOR documented in this encounter Care Teams Medical Sociologist Relationship Specialty Start Date End Date Luann Valdovinos MD PCP - General Nurse Practitioner 01/15/24 Darlene Arshad MD [address] [place] [address] Surgeon Medical Oncology 07/14/25 documented as of this encounter
--- OUTSIDE RECORDS SUMMARY | 2025-08-09 13:07 | XMS_ITS | Encounter Summary ---
Author Organization [facility] Healthcare Address [address] [place] [address] Care Team Providers Care Real Estate Professor Name Role Phone Luann Valdovinos MD Primary Care Provider [phone]- [phone] JeancarlosDarlene MD Unavailable [phone] Reason for Referral * Diagnostic Imaging (Routine) - Closed Specialty Diagnoses / Procedures Referred By Devorahac t Referred To Contact Diagnoses Dysphagia, oropharyngeal Procedures FL Modified Barium Swallow W Video Darren Tai MD [address] [id number] Phone: tel: fax: [address] [place] [address] Referral ID Status Reason Start Date Expiration Date Visits Re quested Visits Authorized [id number] Closed 07/17/2025 08/16/2026 1 1 GRADER Reason for Visit * Diagnostic Imaging (Routine) - Closed Specialty Diagnoses / Procedures Referred By Contac t Referred To Contact Diagnoses Dysphagia, oropharyngeal Procedures FL Modified Barium Swallow W Video Darren Tai MD [address] [address] Phone: tel: fax: [address] [address] [place] [address] Referral ID Status Reason Start Date Expiration Date Visits Re quested Visits Authorized [id number] Closed 07/17/2025 08/16/2026 1 1 Encounter Details Date Type Department Care Team (Latest Contact Info) Description 08/09/2025 1:07 PM BAG GRADER Hospital Encounter [facility] [id number] [address] Dysphagia, oropharyngeal Social History Tobacco Use Types [...] Read Routine (OP Routine) 08/09/2025 2:10 PM BAG GRADER Dysphagia, oropharyngeal documented in this encounter Results * FL Modified Barium Swallow W Video (08/09/2025 2:10 PM BAG GRADER) Anatomical Region Laterality Modality Head and Neck N/A Radio Fluoroscop y 08/09/2025 2:42 PM BAG GRADER Impressions 08/09/2025 2:43 PM BAG GRADER The swallowing mechanism is normal; see above [...] Geena Davis M.D. Narrative 08/09/2025 2:43 PM BAG GRADER EXAMINATION: MODIFIED BARIUM SWALLOW HISTORY: Dysphagia. TECHNIQUE: This procedure was completed in conjunction with a Speech Language Pathologist. The patient was given barium of multiple different consistencies to swallow. Video fluoroscopy was employed during the exam. FINDINGS: Oral-pharyngeal swallow function is within normal limits. Penetration: No Aspiration: No Residue:No Other comments: None Procedure Note Geena Daivs MD - 08/09/2025 EXAMINATION: MODIFIED BARIUM SWALLOW [...] 1 dose Contrast Given 08/09/2025 2:11 PM BAG GRADER 700 mg barium sulfate (VARIBAR NECTAR) 40 % (w/v) nectar oral, Once in imaging, contrast, Starting on Thu08/09/25 at 1357, For 1 dose, Shake well Contrast Given 08/09/2025 1:59 PM BAG GRADER barium sulfate (VARIBAR PUDDING) 40 % (w/v), 30% (w/w) pudding oral, Once in imaging, contrast, Starting on Thu08/09/25 at 1357, For 1 dose Contrast Given 08/09/2025 1:59 PM BAG GRADER barium sulfate (VARIBAR THIN LIQUID) 81 % (w/w) thin liquid oral, Once in imaging, contrast, Starting on Thu08/09/25 at 1357, For 1 dose Contrast Given 08/09/2025 1:58 PM BAG GRADER documented in this encounter Care Teams Real Estate Professor Relationship Specialty Start Date End Date Luann Valdovinos MD PCP - General Nurse Practitioner 01/15/24 Darlene Arshad MD [address] [place] [address] Surgeon Medical Oncology 07/14/25 documented as of this encounter
--- OUTSIDE RECORDS SUMMARY | 2025-08-09 13:45 | XMS_ITS | Encounter Summary ---
Author Organization [facility] Healthcare Address [address] [place] [address] Care Team Providers Care Electrician Front Name Role Phone Luann Valdovinos MD Primary Care Provider [phone] JeancarlosDarlene MD Unavailable [phone] Reason for Visit * Diagnostic Imaging (Routine) - Closed Specialty Diagnoses / Procedures Referred By Contac t Referred To Contact Diagnoses Dysphagia, oropharyngeal Procedures [place] Modified Barium Swallow W Video Darren Tai MD [address] [place] [address] Phone: tel: fax: [address] [place] [address] Referral ID Status Reason Start Date Expiration Date Visits Re quested Visits Authorized [id number] Closed 07/17/2025 08/16/2026 1 1 Encounter Details Date Type Department Care Team (Late st Contact Info) Description 08/09/2025 1:45 PM PRESIDENT AND CHIEF EXECUTIVE OFFICER Therapy [facility] Outpatient Speech Pathology [address], [address] [place] [address] Vidhya Quick, AMARIS Dysphagia, unspecified type (Primary Dx) Social History Tobacco Use Types Packs/Day Years [...] PM CDT documented as of this encounter Progress Notes * Vidhya Quick, VISUAL MERCHANDISING DIRECTOR - 08/09/2025 1:[address] [facility] Outpatient Speech-Language Pathology Modified Barium Swallow Study Patient Name: Lori Gamboa Date of Service: 08/09/2025 Date of : 1985 Age/Sex: 40 y.o. female Referring Provider: Darren Tai MD SUBJECTIVE HPI: Lori Gamboa is a 40 y.o. female with a history of asthma, Ehler's Danlos, mast cell activationsyndrome (MCAS), POTS, anxiety/depression, IBS, migraine, and paradoxical vocal fold motion (PVFM).Patient was referred for a Modified Barium Swallow study by Darren Tai MD due to reports of ongoing dysphagia. Per latest note from Dr. Tai 07/17/2025, patient seen for ongoing management of throat pain, mucus, dysphagia, lymphoid hypertrophy. At last visit, I recommended long-term low-dose macrolide antibiotic therapy with with the intention of treating the lymphoid inflammation. She has experienced about a 50% improvement in her mucus symptoms. The throat discomfort remains.The swallow difficulty remains. Specifically, she gets sticking with solid foods. Voice and AirwaySLP note from the same date states, In terms of throat discomfort/dysphagia, this is the same as when she was here last. It is worse at times. Solid foods, even softer foods, feels like it will get stuck in her throat and sometimes lower down towards her clavicle. When she tries to drink water to wash it down, it will hurt. She will have to really force a swallow to push the food down. Liquids feel like they go down the wrong pipe about 1x per week making her cough. Pills give her trouble all the time. It feels like it stays at the top of her throat. She has not yet completed MBS. Reports having an upper and lower endoscopy in that revealed IBS. She no longer follows with GI. Imaging/Procedures: Flexible Transnasal Laryngoscopy 07/17/2025: - General: mucus consistency thin - Nasopharynx: no purulence or polyps - Hypopharynx: Generalized base of tongue lymphoid hypertrophy - Supraglottis: no lesions; no erythema or edema; no constriction during phonation - Vocal Fold Mobility: normal and symmetric - Vocal Fold Anatomy: normal color; no lesions; no edema - Mucosal wave pattern: Not assessed - Phase symmetry: not assessed - Closure: grossly complete closure - Subglottis: subglottis patent without evidence of stenosis Medical History Past Medical History: Diagnosis Date ADHD Combined Asthma Autism spectrum disorder Eczema Maryam-Danlos, hypermobile type Generalized anxiety disorder Heart problem IBS (irritable bowel syndrome) Major depressive disorder, recurrent episode, moderate (HCC) Menstrual problem Migraines Plantar fasciitis POTS (postural orthostatic tachycardia syndrome) Behavior/Cognition: awake/alert, appropriately interactive, cooperative, and demonstrates excellentinsight into medical history and presenting symptoms Pain Assessment: / pain reported to direct questioning (systemic, due to EDS and RA). Current Home Diet: Regular and Thin though she avoids many foods due to [facility] Patient Description of Problem/Date of Onset: Patient reports signs and symptoms concerning for oropharyngeal dysphagia, including: a sensation that food boluses stick in her throat, coughing with PO intake, coughing without PO intake, inability to swallow a wide variety of foods/liquids as desired, and difficulty managing secretions. She has to clear her throat due to a feeling like there is constant drainage, and sometimes even notes sheis choking on her own saliva, with symptoms worsening for ~2 years. For as long as she can remembershe has had trouble getting food to go down all the way, with boluses sticking between the thyroid notch and the mid-sternal region. Sometimes coughing becomes so violent that she vomits. Patient reports that dysphagia symptoms began to worsen over the past 2 years, occur frequently, and have worsened since onset. It improved briefly while on a low dose long course of antibiotic but it never went away. Patient reports the ease/efficiency of swallowing is improved by strategies that include taking a forceful sip of water to clear stuck food, but that hurts at the point of perceived retention. Patient denies recent unintentional weight loss due to dysphagia, denies need to avoid specific foods/liquids due to swallowing (though she must avoid many foods due to MSAC), endorses difficulty swallowing pills, denies prior need for the Heimlich maneuver, and endorses need for extra time with meals due to problems with swallowing. Patient denies known history or symptoms suggestive of recurrent respiratory infections. Patient denies symptoms of heartburn or reflux; patient does not take medications for reflux on a regular basis. Patient denies changes to taste. Patient denies concerning changes to speech clarity/intelligibility and endorses concerning changes to voice. Her voice cuts in and out a lot. She has not been ableto attend voice therapy lately due to scheduling constraints. Sometimes a really intense yawn can hurt in the perilaryngeal area bilaterally. Eating Assessment Tool (EAT-10) Total Score: 25 / 40 Normative data suggest that an EAT-10 score of 3 or higher is abnormal. Scores: 0=no problem 4=severe problem 1. My swallow problem has caused me to lose weight. Score: 0 2. My swallowing problem interferes with my ability to go out for meals. Score: 0 3. Swallowing liquids takes extra effort. Score: 2 4. Swallowing solids takes extra effort. Score: 3 5. Swallowing pills takes extra effort. Score: 3 6. Swallowing in painful: Score: 3 7. The pleasure of eating is affected by my swallowing. Score: 3 8. When I swallow food sticks in my throat. Score: 3 9. I cough when I eat. Score: 4 10. Swallowing is stressful. Score: 4 Reflux Severity Index (RSI) Total RSI Score: 38 / 45 Normative data suggests that an RSI of greater than or equal to 13 is clinically significant and may be indicative of significant reflux disease. Scores: 0=no problem 5=severe problem Hoarseness or a problem with your voice Score: 5 2. Clearing your throat Score: 5 3. Excess throat mucous or postnasal drip Score: 5 4. Difficulty swallowing food, liquids or pills Score: 4 5. Coughing after you ate or after lying down Score: 5 6. Breathing difficulties or choking episodes Score: 4 7. Troublesome or annoying cough Score: 5 8. Sensations or something sticking in your throat Score: 5 9. Heart burn, chest pain, indigestion, or stomach acid coming up Score: 0 OBJECTIVE Purpose and Procedure of Modified Barium Swallow Study: A Modified Barium Swallow Study is completed to assess the function, safety, and efficiency of the oropharyngeal and pharyngoesophageal domainsof swallowing, rule out aspiration, make recommendations regarding safe dietary consistencies, effective compensatory strategies, appropriate treatment targets, and safe eating environment. This testis completed in conjunction with Radiology and is not intended to diagnose any other radiologic abnormalities or substitute for a formal esophagram study. Results of this test are indicative of performance at the time of the exam. Standard procedure is in lateral view at 90 degrees. A/P views capture pharyngoesophageal images. Respiratory Support: No Significant Impairment- Respiratory support is adequate for speech & swallowing Supplemental Oxygen: none Dentition: Adequate Oral Hygiene: Adequate Consistencies Administered: thin, nectar, puree, solid, and pill Administered consistencies contain barium product. Penetration-Aspiration Scale (PAS) Thin Liquids: Penetration-Aspiration Scale: 1- Material does not enter the airway [place] Thickened Liquids: Penetration-Aspiration Scale: 1- Material does not enter the airway Purees: Penetration-Aspiration Scale: 1- Material does not enter the airway Solids: Penetration-Aspiration Scale: 1- Material does not enter the airway Dysphagia Outcome Severity Scale (MIRIAN): Level 7: Normal in all situations - Normal diet, no strategies or extra time needed MODIFIED BARIUM SWALLOW IMPAIRMENT PROFILE (MBSImP) Component Number and Descriptor Scale Patient's Score and Descriptor 1. Lip Closure (0-4) 0- no labial escape 2. Tongue Control with Bolus Hold (0-3) 0- cohesive bolus and adequate tongue to palatal seal 3. Bolus Preparation/Mastication (0-3) 0-timely and efficient chewing and mashing 4. Bolus Transport/Lingual Motion (0-4) 0-brisk tongue motion 5. Oral Residue (0-4) 0- complete oral clearance 6. Initiation of Pharyngeal Swallow (0-4) 1-bolus head in valleculae 7. Soft Palate (0-4) 0-no bolus between soft palate and pharyngeal wall 8. Laryngeal Elevation (0-3) 0- complete superior movement of thyroid cartilage with complete approximation of arytenoids to epiglottic petiole 9. Anterior Hyoid Excursion (0-2) 0- complete anterior movement 10. Epiglottic Movement (0-2) 0- complete inversion 11. Laryngeal Vestibular Closure (0-2) 0- complete; no air or contrast in the laryngeal vestibule 12. Pharyngeal Stripping Wave (0-2) 0- present and complete 13. Pharyngeal Contraction (AP view only) (0-3) 0- complete 14. Pharyngoesophageal Segment Opening (0-3) 0- complete distention and complete duration; no obstruction of flow 15. Tongue Base Retraction (0-4) 0- no contrast between tongue base and posterior pharyngeal wall 16. Pharyngeal Residue (0-4) 0- complete pharyngeal clearance 17. Esophageal Clearance (upright position) (0-4) 0- complete clearance, esophageal coating ASSESSMENT Overall Clinical Impression/Additional Information: Oropharyngeal swallowing is within normal limits. There was a single instance of retrograde flow from the proximal esophagus below the PES suggesting esophageal retention may be a contributing factor to her symptoms. Brief esophageal screening during today's exam was unrevealing. Based on patient's case history, responses to EAT-10 and RSI above, and normal MBS this date, I suggest referral to GI for workup of esophageal function. The patient's oropharyngeal swallow function appears adequate to meet nutrition/hydration needs by mouth via a regular consistency diet and thin liquids. At present, swallowing safety appears adequate and efficiency of swallow function appears adequate. The patient does not have significant risk factors for malnutrition, dehydration, and respiratory sequale or other adverse events associated with aspiration . The patient does not require continued speech pathology intervention for skilled dysphagia management at this time. . Prognosis/Rehab Potential/Barriers: n/a - no treatment recommended PLAN Patient Stated Goal: understand case of symptoms Short-Term Goals Patient will verbalize understanding of Modified Barium Swallow study results in order to ensure safety and adequate nutrition/hydration. Status: Goal met 2. Patient will verbalize understanding of clinical signs and symptoms of aspiration. Status: Goal met 3. Patient will verbalize understanding of diet recommendations, compensatory strategies, and aspiration precautions. Status: Goal met No further speech-language pathology intervention is indicated at this time. TREATMENT The patient received skilled treatment in addition to completion of the Modified Barium Swallow study. The patient was provided with skilled education regarding swallow anatomy and physiology with review of today's study videos. The patient was educated regarding current swallow function, diet recommendations, aspiration precautions, and safe feeding strategies. The patient was also educated on the importance of adequate oral hygiene and the role oral hygiene plays in the prevention of aspiration related complications. Additional skilled intervention included education regarding behavioral strategies to maximize esophageal clearance including eating smaller, more frequent meals; avoiding lying down after eating; eating completely upright to allow gravity to help empty the esophagus; and mobilizing/walking for short periods of time after meals. The relationship between esophageal dysphagia and symptoms of pharyngeal dysphagia was discussed. Education was provided regarding potential options for additional assessment/management of esophageal structure/function with GI. Education: Patient has been educated on the VISUAL MERCHANDISING DIRECTOR role, oral care, aspiration precautions, feeding strategies, and plan of care. Education completed via explanation and demonstration. Patient verbalized understanding. Response to today's intervention: excellent PROFESSIONAL RECOMMENDATIONS Diet Recommendations: Regular and Thin Medication Administration: as tolerated Compensatory Strategies/Modifications: Reflux precautions/diet Postural Recommendations: Upright 90 degrees Remain upright at least 60 minutes after intake Assistance: N/A Recommended Follow-Up: GI consult Start Time: 1350 End Time: 1430 Timed Treatment Time: 0 Un-timed Treatment Time: 40 Total Treatment Time: 40 Discharge Summary Statement If this is the last speech-language pathology visit, this serves as the discharge summary. Vidhya Quick MA,[facility]-VISUAL MERCHANDISING DIRECTOR Speech Language Pathologist [phone] IDENT AND CHIEF EXECUTIVE OFFICER documented in this encounter Plan of Treatment Not on file documented as of this encounter Visit Diagnoses Diagnosis Dysphagia, unspecified type- Primary documented in this encounter Care Teams Electrician Front Relationship Specialty Start Date End Date Luann Valdovinos MD PCP - General Nurse Practitioner 01/15/24 Darlene Arshad MD [facility] [address] [place] [address] Surgeon Medical Oncology 07/14/25 documented as of this encounter
--- OUTSIDE RECORDS SUMMARY | 2025-08-09 13:45 | XMS_ITS | Encounter Summary ---
Author Organization [facility] Healthcare Address [address] [place] [address] Care Team Providers Care Inspector Barrel Name Role Phone Luann Valdovinos MD Primary Care Provider [phone]- [phone] JeancarlosDarlene MD Unavailable [phone] Reason for Visit * Diagnostic Imaging (Routine) - Closed Specialty Diagnoses / Procedures Referred By Contac t Referred To Contact Diagnoses Dysphagia, oropharyngeal Procedures [place] Modified Barium Swallow W Video Darren Tai MD [address] [place] [address] Phone: tel: fax: [address] [place] [address] Referral ID Status Reason Start Date Expiration Date Visits Re quested Visits Authorized [id number] Closed 07/17/2025 08/16/2026 1 1 Encounter Details Date Type Department Care Team (Late st Contact Info) Description 08/09/2025 1:45 PM PARALEGAL Therapy [facility] Outpatient Speech Pathology [address], [address] [place] [address] Vidhya Quick, AMARIS Dysphagia, unspecified type [...] this encounter Progress Notes * Vidhya Quick, MATERIALS COORDINATOR - 08/09/2025 1:45 PM CST [facility] Outpatient Speech-Language Pathology Modified Barium Swallow Study [...] though she avoids many foods due to [facility] Patient Description of Problem/Date of Onset: Patient [...] 1- Material does not enter the airway [place] Thickened Liquids: Penetration-Aspiration Scale: 1- Material does [...] Education: Patient has been educated on the MATERIALS COORDINATOR role, oral care, aspiration precautions, feeding strategies, [...] serves as the discharge summary. Vidhya Quick MA,[facility]-MATERIALS COORDINATOR Speech Language Pathologist [phone] LEGAL documented in this encounter Plan of Treatment Not on file documented as of this encounter Visit Diagnoses Diagnosis Dysphagia, unspecified type- Primary documented in this encounter Care Teams Inspector Barrel Relationship Specialty Start Date End Date Luann Valdovinos MD PCP - General Nurse Practitioner 01/15/24 Darlene Arshad MD [facility] [address] [place] [address] Surgeon Medical Oncology 07/14/25 documented as of this encounter
--- OUTSIDE RECORDS SUMMARY | 2025-08-09 20:51 | XMS_ITS | Encounter Summary ---
Author Organization [facility] Address [facility] [place] [address] Care Team Providers Care Polishing Machine Operator Name Role Phone Elizabeth Arnold MD Primary Care Provider [phone] Francois Dailey DO Primary Care Provider [phone] Luann Valdovinos NP Primary Care Provider [phone] Romaine Decker MD Unavailable [phone] Baljinder Morejon MD Unavailable Encounter Details Date Type Department Care Team (Late st Contact Info) Description 08/06/2021 Traxpayt Message Enc [facility] Medical Group Family & Internal Medicine [address] [address] Elizabeth Arnold [place] [id number] [place] [address] Dislocation Social History Tobacco Use Types Packs/Day Years Used Date Smoking Tobacco: Never Smokeless Tobacco: Never Alcohol Use Standard Drinks/Week Comments Yes 0 (1 standard drink = 0.6 oz pur e alcohol) socially PHQ-2 Answer Date Recorded PHQ-2 Score - If the patient scores above 3, please move on to questions 3-9 2 08/05/2021 Comments No Sex and Gender Information Value Date Recorded Sex Assigned at Female 09/27/2024 2:16 PM GEOTHERMAL FIELD TECHNICIAN Legal Sex Female 6:54 PM CDT Gender Identity Female 02/22/2025 2:51 PM CDT Sexual Orientation Not on file 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 No / Unsure 08/08/2021 8:35 AM GEOTHERMAL FIELD TECHNICIAN documented as of this encounter Progress Notes * Eri Kiser RN - 08/07/2021 8:20 AM CST Printed to make provider aware HERMAL FIELD TECHNICIAN documented in this encounter Plan of Treatment Upcoming Encounters Date Type Department Care Team (Late st Contact Info) Description 08/14/2025 4:30 PM GEOTHERMAL FIELD TECHNICIAN Allied Health/Nurse Visit Tiffanie mccollum [facility], [facility] [address] [place] [address] Kory Brown MD [facility]. [facility] [address] [place] [address] 08/15/2025 2:00 PM GEOTHERMAL FIELD TECHNICIAN Treatment [facility], [place] [address] [place] [address] None, MD Medardo 08/22/2025 2:00 PM GEOTHERMAL FIELD TECHNICIAN Treatment [facility], [facility] [address] [place] [address] None, MD Medardo 08/29/2025 2:00 PM GEOTHERMAL FIELD TECHNICIAN Treatment [facility], [facility] [address] [place] [address] Chet, MD Medardo 09/05/2025 2:00 PM GEOTHERMAL FIELD TECHNICIAN Treatment [facility], [place] [address] [place] [address] None, Provider, 09/12/2025 2:00 PM GEOTHERMAL FIELD TECHNICIAN Treatment [facility], [facility] [address] [place] [address] None, ProviderMD 09/19/2025 2:00 PM GEOTHERMAL FIELD TECHNICIAN Treatment [facility] Services at [facility], [facility] [address] [place] [address] None, Provider, 09/26/2025 2:00 PM GEOTHERMAL FIELD TECHNICIAN Treatment [facility] at [facility], [facility] [address] [place] [address] None, ProviderMD documented as of this encounter Visit Diagnoses Not on filedocumented in this encounter Additional Health Concerns Assessment Noted Time PHQ-9 Depression Total Score: 2 08/05/20 21 12:14 PM GEOTHERMAL FIELD TECHNICIAN documented as of this encounter Care Teams Polishing Machine Operator Relationship Specialty Start Date End Date Elizabeth Arnold MD PCP - General INTERNAL MEDICINE 04/22/21 12/17/22 Francois Dailey DO [facility] [address] PCP - General FAMILY PRACTICE 02/21/23 10/29/23 Luann Valdovinos NP [address] [place] [address] PCP - General NURSE PRACTITIONER 10/30/23 Romaine Decker MD [facility]. [facility] [address] [place] [address] Consulting Physician CARDIOVASCULAR DISEASE 06/20/24 Baljinder Morejon MD Three [facility]. [address] [address] Consulting Physician CLINICAL CARDIAC ELECTROPHYSIOLOGY 11/08/24 documented as of this encounter
--- OUTSIDE RECORDS SUMMARY | 2025-08-09 20:51 | XMS_ITS | Encounter Summary ---
Author Organization [facility] Address [facility]6 [place] [address] Care Team Providers Care Downstairs Maid Name Role Phone Elizabeth Arnold MD Primary Care Provider [phone] Francois Dailey DO Primary Care Provider [phone] Luann Valdovinos NP Primary Care Provider [phone] Romaine Decker MD Unavailable [phone] Baljinder Morejon MD Unavailable Encounter Details Date Type Department Care Team (Late st Contact Info) Description 03/17/2022 PandaDoc Message Enc [facility], [address] [address] Romaine Decker MD [facility]. [address] [address] Switching back to metoprolol. 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 [address] [place] [address] 08/15/2025 2:00 PM PHOTOLITH OPERATOR Treatment [facility], [facility] [address] [place] [address] None, ProviderMD 08/22/2025 2:00 PM PHOTOLITH OPERATOR Treatment [facility], [facility] [address] [place] [address] None, ProviderMD 08/29/2025 2:00 PM PHOTOLITH OPERATOR Treatment [facility], [facility] [address] [place] [address] None, ProviderMD 09/05/2025 2:00 PM PHOTOLITH OPERATOR Treatment [facility], [facility] [address] [place] [address] None, ProviderMD 09/12/2025 2:00 PM PHOTOLITH OPERATOR Treatment [facility], [facility] [address] [place] [address] None, ProviderMD 09/19/2025 2:00 PM PHOTOLITH OPERATOR [facility], [facility] [address] [place] [address] None, MD Medardo 09/26/2025 2:00 PM PHOTOLITH OPERATOR Treatment [facility], [facility] [address] [place] [address] None, ProviderMD documented as of this encounter Visit Diagnoses Not on filedocumented in this encounter Additional Health Concerns Assessment Noted Time PHQ-9 Depression Total Score: 0 11/05/19 22 4:56 PM CDT documented as of this encounter Care Teams Downstairs Maid Relationship Specialty Start Date End Date Elizabeth Arnold MD PCP - General INTERNAL MEDICINE 04/22/21 12/17/22 Francois Dailey DO [address] [facility] [address] [place] [address] PCP - General FAMILY PRACTICE 02/21/23 10/29/23 Luann Valdovinos NP [address] [place] [address] PCP - General NURSE PRACTITIONER 10/30/23 Romaine Decker MD [facility]. [facility] [address] [place] [address] Consulting Physician CARDIOVASCULAR DISEASE 06/20/24 Baljinder Morejon MD [facility]. [facility] [address] [place], [place] [address] Consulting Physician CLINICAL CARDIAC ELECTROPHYSIOLOGY 11/08/24 documented as of this encounter
--- OUTSIDE RECORDS SUMMARY | 2025-08-09 20:51 | XMS_ITS | Encounter Summary ---
Author Organization [facility] Address [facility] [place] [address] Care Team Providers Care Supervisor Dog License Officer Name Role Phone Luann Valdovinos NP Primary Care Provider [phone] Romaine Decker MD Unavailable [phone] Baljinder Morejon MD Unavailable Encounter Details Date Type Department Care Team (Late Contact Info) Description 12/26/2023 MyCGiveot Message Enc [facility], [address] [address] Romaine Decker MD [facility]. 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 [address] [place] [address] 08/15/2025 2:00 PM FUR BLOWER Treatment [facility], [place] [address] [place] [address] None, Provider, 08/22/2025 2:00 PM FUR BLOWER Treatment [facility], [facility] [address] [place] [address] None, Provider, 08/29/2025 2:00 PM FUR BLOWER Treatment [facility], [facility] [address] [place] [address] None, Provider, 09/05/2025 2:00 PM FUR BLOWER Treatment [facility], [facility] [address] [place] [address] None, Provider, 09/12/2025 2:00 PM FUR BLOWER Treatment [facility], [facility] [address] [place] [address] None, Provider, 09/19/2025 2:00 PM FUR BLOWER Treatment [facility], [facility] [address] [place] [address] None, Provider, 09/26/2025 2:00 PM FUR BLOWER [facility], [facility] [address] [place] [address] None, Provider, documented as of this encounter Visit Diagnoses Not on filedocumented in this encounter Additional Health Concerns Assessment Noted Time PHQ-9 Depression Total Score: 12 10/29/ 024 10:36 AM FUR BLOWER documented as of this encounter Care Teams Supervisor Dog License Officer Relationship Specialty Start Date End Date Luann Valdovinos NP [address] [place] [address] PCP - General NURSE PRACTITIONER 10/30/23 Romaine Decker MD [facility]. [facility] [address] [place] [address] Consulting Physician CARDIOVASCULAR DISEASE 06/20/24 Baljinder Morejon MD [facility]. [facility] [address] [place] [address] Consulting Physician CLINICAL CARDIAC ELECTROPHYSIOLOGY 11/08/24 documented as of this encounter
--- OUTSIDE RECORDS SUMMARY | 2025-08-09 20:51 | XMS_ITS | Encounter Summary ---
Author Organization [facility] Address [facility]6 [place] [address] Care Team Providers Care Medicare Sales Executive Name Role Phone Luann Valdovinos NP Primary Care Provider [phone] Romaine Decker MD Unavailable [phone] Baljinder Morejon MD Unavailable Encounter Details Date Type Department Care Team (Late st Contact Info) Description 03/08/2025 MyChart Message Enc [facility] Family Medicine - [place] [address] [facility] [address] [place], [place] [id number] Luann Valdovinos NP [address] [place], [place] [address] Disability placard Social History Tobacco Use Types Packs/Day Years Used Date Smoking Tobacco: Never Smokeless Tobacco: Never Alcohol Use Standard Drinks/Week Comments Yes 0 (1 standard drink = 0.6 oz pur e alcohol) socially PHQ-2 Answer Date Recorded Patient Health Questionnaire-2 Score 0 09/13/2024 Comments No Sex and Gender Information Value Date Recorded Sex Assigned at Female 09/27/2024 2:16 PM DIRECTOR SPEECH AND HEARING Legal Sex Female 6:54 PM CDT Gender Identity Female 02/22/2025 2:51 PM CDT Sexual Orientation Not on file Occupation Industry Job Start Date Job End Date [employer] Not on file Not on file Not on eileen e documented as of this encounter Progress Notes * Luann Valdovinos NP - 03/09/2025 4:19 PM CDT Form signed * Carrol Espitia MA - 03/08/2025 4:37 PM CDT Form printed and completed and placed on providers desk for signature documented in this encounter Plan of Treatment Upcoming Encounters Date Type Department Care Team (Late st Contact Info) Description 08/14/2025 4:30 PM DIRECTOR SPEECH AND HEARING Allied Health/Nurse [facility], [address] [place] [address] Kory Brown MD [facility]. [address] [place] [address] 08/15/2025 2:00 PM DIRECTOR SPEECH AND HEARING Treatment [facility], [place] [address] [place] [address] None, ProviderMD 08/22/2025 2:00 PM DIRECTOR SPEECH AND HEARING Treatment [facility], [place] [address] [place] [address] None, ProviderMD 08/29/2025 2:00 PM DIRECTOR SPEECH AND HEARING Treatment [facility], [place] [address] [place] [address] None, ProviderMD 09/05/2025 2:00 PM DIRECTOR SPEECH AND HEARING Treatment [facility], [place] [address] [place] [address] None, ProviderMD 09/12/2025 2:00 PM DIRECTOR SPEECH AND HEARING Treatment [facility], [facility] [address] [place] [address] None, ProviderMD 09/19/2025 2:00 PM DIRECTOR SPEECH AND HEARING Treatment [facility] at [facility], [place] [address] [place] [address] None, ProviderMD 09/26/2025 2:00 PM DIRECTOR SPEECH AND HEARING Treatment [facility] at [facility], [place] [address] [place] [address] None, Provider, documented as of this encounter Visit Diagnoses Not on filedocumented in this encounter Additional Health Concerns Assessment Noted Time PHQ-9 Depression Total Score: 8 02/19/20 24 9:53 AM CDT documented as of this encounter Care Teams Medicare Sales Executive Relationship Specialty Start Date End Date Luann Valdovinos NP [address] [place] [address] PCP - General NURSE PRACTITIONER 10/30/23 Romaine Decker MD [facility]. [address] [address] Consulting Physician CARDIOVASCULAR DISEASE 06/20/24 Baljinder Morejon MD [facility]. [facility] [address] [place] [address] Consulting Physician CLINICAL CARDIAC ELECTROPHYSIOLOGY 11/08/24 documented as of this encounter
--- OUTSIDE RECORDS SUMMARY | 2025-08-09 20:51 | XMS_ITS | Encounter Summary ---
Author Organization [facility] Address [facility] [place] [address] Care Team Providers Care Access Control Officer Name Role Phone Luann Valdovinos NP Primary Care Provider [phone] Romaine Decker MD Unavailable [phone] Baljinder Morejon MD Unavailable Encounter Details Date Type Department Care Team (Late Contact Info) Description 09/20/2024 [employer] Message Enc [place] [facility], [facility] [address] [place], [place] [id number] Arelis Abraham, MAJOR LEAGUE BASEBALL PLAYER-C [facility]. 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 [address] [place] [address] 08/15/2025 2:00 PM HR SYSTEMS ANALYST Treatment [facility], [facility] [address] [place] [address] None, Provider, 08/22/2025 2:00 PM HR SYSTEMS ANALYST Treatment [facility], [facility] [address] [place] [address] None, ProviderMD 08/29/2025 2:00 PM HR SYSTEMS ANALYST Treatment [place], [facility] [address] [place] [address] None, Provider, 09/05/2025 2:00 PM HR SYSTEMS ANALYST Treatment [place] at [facility], [facility] [address] [place] [address] None, ProviderMD 09/12/2025 2:00 PM HR SYSTEMS ANALYST Treatment [facility], [facility] [address] [place] [address] None, ProviderMD 09/19/2025 2:00 PM HR SYSTEMS ANALYST Treatment [place] at [facility], [place] [address] [place] [address] None, ProviderMD 09/26/2025 2:00 PM HR SYSTEMS ANALYST Treatment [facility], [place] [address] [place] [address] None, Provider, documented as of this encounter Visit Diagnoses Not on filedocumented in this encounter Additional Health Concerns Assessment Noted Time PHQ-9 Depression Total Score: 8 02/19/20 24 9:53 AM CDT documented as of this encounter Care Teams Access Control Officer Relationship Specialty Start Date End Date Luann Valdovinos NP [address] [place] [address] PCP - General NURSE PRACTITIONER 10/30/23 Romaine Decker MD [facility]. [facility] [address] [place] [address] Consulting Physician CARDIOVASCULAR DISEASE 06/20/24 Baljinder Morejon MD [facility]. [facility] [address] [place] [address] Consulting Physician CLINICAL CARDIAC ELECTROPHYSIOLOGY 11/08/24 documented as of this encounter
--- OUTSIDE RECORDS SUMMARY | 2025-08-09 20:51 | XMS_ITS | Encounter Summary ---
Author Organization [facility] Address [facility] [place] [address] Care Team Providers Care Marker Machine Name Role Phone Luann Valdovinos NP Primary Care Provider [phone] Romaine Decker MD Unavailable [phone] Baljinder Morejon MD Unavailable Encounter Details Date Type Department Care Team (Late st Contact Info) Description 03/14/2024 MyChart Message Enc [facility] Family Medicine - [place] [address] [facility] [address] [place] [id number] Luann Valdovinos, PAPER HANGER [address] [place] [address] [place], [place] [address] Psychology Social History Tobacco Use Types Packs/Day Years Used Date Smoking Tobacco: Never Smokeless Tobacco: Never Alcohol Use Standard Drinks/Week Comments Yes 0 (1 standard drink = 0.6 oz pur e alcohol) socially PHQ-2 Answer Date Recorded Patient Health Questionnaire-2 Score 2 02/19/2024 Comments No Sex and Gender Information Value Date Recorded Sex Assigned at Female 09/27/2024 2:16 PM PETROLEUM ENGINEERING TEACHER Legal Sex Female 6:54 PM CDT Gender Identity Female 02/22/2025 2:51 PM CDT Sexual Orientation Not on file 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 [facility] [address] [place] [address] 08/15/2025 2:00 PM PETROLEUM ENGINEERING TEACHER Treatment [facility], [facility] [address] [place] [address] None, Provider, 08/22/2025 2:00 PM PETROLEUM ENGINEERING TEACHER Treatment [facility], [place] [address] [place] [address] None, Provider, 08/29/2025 2:00 PM PETROLEUM ENGINEERING TEACHER Treatment [facility], [facility] [address] [place] [address] None, Provider, 09/05/2025 2:00 PM PETROLEUM ENGINEERING TEACHER Treatment [facility], [place] [address] [place] [address] None, Provider, 09/12/2025 2:00 PM PETROLEUM ENGINEERING TEACHER Treatment [place], [place] [address] [place] [address] None, Provider, 09/19/2025 2:00 PM PETROLEUM ENGINEERING TEACHER Treatment [facility], [place] [address] [place] [address] None, Provider, 09/26/2025 2:00 PM PETROLEUM ENGINEERING TEACHER Treatment [facility], [address] [address] None, Provider, documented as of this encounter Visit Diagnoses Not on filedocumented in this encounter Additional Health Concerns Assessment Noted Time PHQ-9 Depression Total Score: 8 02/19/20 24 9:53 AM CDT documented as of this encounter Care Teams Marker Machine Relationship Specialty Start Date End Date Luann Valdovinos NP [address] [place] [address] PCP - General NURSE PRACTITIONER 10/30/23 Romaine Decker MD Three [facility]. [address] [address] Consulting Physician CARDIOVASCULAR DISEASE 06/20/24 Baljinder Morejon MD [facility] [address] [address] Consulting Physician CLINICAL CARDIAC ELECTROPHYSIOLOGY 11/08/24 documented as of this encounter
--- OUTSIDE RECORDS SUMMARY | 2025-08-09 20:51 | XMS_ITS | Encounter Summary ---
Author Organization [facility] System Address [facility] [place] [address] Care Team Providers Care Senior Mobile Application Developer Name Role Phone Luann Valdovinos NP Primary Care Provider [phone] Romaine Decker MD Unavailable [phone] Baljinder Morejon MD Unavailable Encounter Details Date Type Department Care Team (Late st Contact Info) Description 09/20/2024 MyChart Message Enc [facility] Family Medicine - [place] [address] [place], [place] [address] Luann Valdovinos, HOSPICE RN [address] [place], [place] [address] Foot Social History Tobacco Use Types Packs/Day Years Used Date Smoking Tobacco: Never Smokeless Tobacco: Never Alcohol Use Standard Drinks/Week Comments Yes 0 (1 standard drink = 0.6 oz pur e alcohol) socially PHQ-2 Answer Date Recorded Patient Health Questionnaire-2 Score 0 09/13/2024 Comments No Sex and Gender Information Value Date Recorded Sex Assigned at Female 09/27/2024 2:16 PM MEDICAL CLAIMS REPRESENTATIVE Legal Sex Female 6:54 PM CDT Gender Identity Female 02/22/2025 2:51 PM CDT Sexual Orientation Not on file 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 [facility] [address] [place] [address] 08/15/2025 2:00 PM MEDICAL CLAIMS REPRESENTATIVE Treatment [facility], [facility] [address] [place] [address] None, Provider, 08/22/2025 2:00 PM MEDICAL CLAIMS REPRESENTATIVE Treatment [facility], [place] [address] [place] [address] None, Provider, 08/29/2025 2:00 PM MEDICAL CLAIMS REPRESENTATIVE Treatment [facility], [facility] [address] [place] [address] None, Provider, 09/05/2025 2:00 PM MEDICAL CLAIMS REPRESENTATIVE Treatment [facility], [place] [address] [place] [address] None, Provider, 09/12/2025 2:00 PM MEDICAL CLAIMS REPRESENTATIVE Treatment [facility], [place] [address] [place] [address] None, Provider, 09/19/2025 2:00 PM MEDICAL CLAIMS REPRESENTATIVE Treatment [facility], [place] [address] [place] [address] None, Provider, 09/26/2025 2:00 PM MEDICAL CLAIMS REPRESENTATIVE Treatment [facility], [address] [address] None, Provider, documented as of this encounter Visit Diagnoses Not on filedocumented in this encounter Additional Health Concerns Assessment Noted Time PHQ-9 Depression Total Score: 8 02/19/20 24 9:53 AM CDT documented as of this encounter Care Teams Senior Mobile Application Developer Relationship Specialty Start Date End Date Luann Valdovinos NP [address] [place] [address] PCP - General NURSE PRACTITIONER 10/30/23 Romaine Decker MD Three [facility]. [address] [address] Consulting Physician CARDIOVASCULAR DISEASE 06/20/24 Baljinder Morejon MD [facility] [address] [address] Consulting Physician CLINICAL CARDIAC ELECTROPHYSIOLOGY 11/08/24 documented as of this encounter
--- OUTSIDE RECORDS SUMMARY | 2025-08-09 20:51 | XMS_ITS | Encounter Summary ---
Author Organization [facility] System Address [facility] [place] [address] Care Team Providers Care Labor Relations Analyst Name Role Phone Luann Valdovinos NP Primary Care Provider [phone] Romaine Decker MD Unavailable [phone] Baljinder Morejon MD Unavailable Encounter Details Date Type Department Care Team (Late st Contact Info) Description 04/11/2025 Personallyt Message Enc [facility] Medical Group Family Medicine - [place] [address] [place], [place] [id number] Luann Valdovinos, SOPHIA [address] [place], [place] [address] I don t know what to do Social History Tobacco Use Types Packs/Day Years Used Date Smoking Tobacco: Never Smokeless Tobacco: Never Alcohol Use Standard Drinks/Week Comments Yes 0 (1 standard drink = 0.6 oz pur e alcohol) rare, once or twice a year PHQ-2 Answer Date Recorded Patient Health Questionnaire-2 Score 0 04/05/2025 Comments No Sex and Gender Information Value Date Recorded Sex Assigned at Female 09/27/2024 2:16 PM BRICK STACKER Legal Sex Female 6:54 PM CDT Gender Identity Female 02/22/2025 2:51 PM CDT Sexual Orientation Not on file 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 Wish to be (Past 1 Month) No 04/11/2025 6:38 AM Trina [place]h RN A ctive 2. Non-Specific Active Suicidal Thoughts (Past 1 Month) No 04/11/2025 6:38 AM Trina [place]h RN A ctive 6. Suicidal Behavior (Lifetime) No 04/11/2025 6:38 AM Trina [place]h RN A ctive documented as of this encounter Plan of Treatment Upcoming Encounters Date Type Department Care Team (Late st Contact Info) Description 08/14/2025 4:30 PM BRICK STACKER Allied Health/Nurse [facility], [facility] [address] [place] [address] Kory Brown MD [facility]. [address] [place] [address] 08/15/2025 2:00 PM BRICK STACKER Treatment [facility], [facility] [address] [place] [address] Chet, MD Medardo 08/22/2025 2:00 PM BRICK STACKER Treatment [facility], [facility] [address] [place] [address] Chet, MD Medardo 08/29/2025 2:00 PM BRICK STACKER Treatment [facility], [facility] [address] [place] [address] Medardo Rosenberg MD 09/05/2025 2:00 PM BRICK STACKER Treatment [facility], [place] [address] [place] [address] None, Provider, 09/12/2025 2:00 PM BRICK STACKER Treatment [facility] at [facility], [address] [address] None, ProviderMD 09/19/2025 2:00 PM BRICK STACKER Treatment [facility] at [facility], [address] [address] None, Provider, 09/26/2025 2:00 PM BRICK STACKER Treatment [facility] at [facility], [address] [address] None, ProviderMD documented as of this encounter Visit Diagnoses Not on filedocumented in this encounter Additional Health Concerns Assessment Noted Time PHQ-9 Depression Total Score: 8 02/19/20 9:53 AM CDT documented as of this encounter Care Teams Labor Relations Analyst Relationship Specialty Start Date End Date Luann Valdovinos NP [address] [place] [address] PCP - General NURSE PRACTITIONER 10/30/23 Romaine Decker MD [facility]. [address] [address] Consulting Physician CARDIOVASCULAR DISEASE 06/20/24 Baljinder Morejon MD [facility]. [place] [address] [place] [address] Consulting Physician CLINICAL CARDIAC ELECTROPHYSIOLOGY 11/08/24 documented as of this encounter
--- OUTSIDE RECORDS SUMMARY | 2025-08-09 20:51 | XMS_ITS | Encounter Summary ---
Author Organization [facility] System Address [facility] [place] [address] Care Team Providers Care Process Control Manager Name Role Phone Luann Valdovinos NP Primary Care Provider [phone] Romaine Decker MD Unavailable [phone] Baljinder Morejon MD Unavailable Encounter Details Date Type Department Care Team (Late st Contact Info) Description 02/07/2025 MyChart Message Enc [facility] Medical [facility] Family Medicine - [place] [address] [facility] [address] [place] [id number] Luann Valdovinos NP [address] [place] [id number] Disability placard Social History Tobacco Use Types Packs/Day Years Used Date Smoking Tobacco: Never Smokeless Tobacco: Never Alcohol Use Standard Drinks/Week Comments Yes 0 (1 standard drink = 0.6 oz pur e alcohol) socially PHQ-2 Answer Date Recorded Patient Health Questionnaire-2 Score 0 09/13/2024 Comments No Sex and Gender Information Value Date Recorded Sex Assigned at Female 09/27/2024 2:16 PM SHOELACE TIPPING MACHINE OPERATOR Legal Sex Female 6:54 PM CDT Gender Identity Female 02/22/2025 2:51 PM CDT Sexual Orientation Not on file 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 They are chronic conditions. * Carrol Espitia MA - 02/09/2025 9:25 AM CDT You didn't zamzam if this is permanent or temporary? Let me know for the parking placard * Luann Valdovinos NP - 02/08/2025 4:47 PM CDT Completed and signed * Carrol Espitia MA - 02/07/2025 8:24 AM CDT I printed the parking placard and will place on Luann's desk to complete or otherwise advise. documented in this encounter Plan of Treatment Upcoming Encounters Date Type Department Care Team (Late st Contact Info) Description 08/14/2025 4:30 PM SHOELACE TIPPING MACHINE OPERATOR Allied Health/Nurse Visit Tiffanie Raines-Kelly'Blake mccollum THREE [facility], [place] [address] [place] [address] Kory Brown MD Three [facility]. [address] [place] [address] 08/15/2025 2:00 PM SHOELACE TIPPING MACHINE OPERATOR Treatment [facility], [address] [address] None, ProviderMD 08/22/2025 2:00 PM SHOELACE TIPPING MACHINE OPERATOR Treatment [facility], [address] [address] None, ProviderMD 08/29/2025 2:00 PM SHOELACE TIPPING MACHINE OPERATOR Treatment [facility], [address] [address] None, ProviderMD 09/05/2025 2:00 PM SHOELACE TIPPING MACHINE OPERATOR Treatment [facility], [address] [address] None, ProviderMD 09/12/2025 2:00 PM SHOELACE TIPPING MACHINE OPERATOR Treatment [facility], [address] [address] None, ProviderMD 09/19/2025 2:00 PM SHOELACE TIPPING MACHINE OPERATOR Treatment [facility] at [address] [address] None, ProviderMD 09/26/2025 2:00 PM SHOELACE TIPPING MACHINE OPERATOR Treatment [facility], [address] [address] None, Provider, documented as of this encounter Visit Diagnoses Not on filedocumented in this encounter Additional Health Concerns Assessment Noted Time PHQ-9 Depression Total Score: 8 02/19/20 24 9:53 AM CDT documented as of this encounter Care Teams Process Control Manager Relationship Specialty Start Date End Date Luann Valdovinos NP [address] [place] [address] PCP - General NURSE PRACTITIONER 10/30/23 Romaine Decker MD [facility]. [facility] [address] [place] [address] Consulting Physician CARDIOVASCULAR DISEASE 06/20/24 Baljinder Morejon MD [facility]. [address] [address] Consulting Physician CLINICAL CARDIAC ELECTROPHYSIOLOGY 11/08/24 documented as of this encounter
--- OUTSIDE RECORDS SUMMARY | 2025-08-09 20:51 | XMS_ITS | Encounter Summary ---
Author Organization [facility] Address [facility] [place] [address] Care Team Providers Care Shirt Hemmer Name Role Phone Luann Valdovinos NP Primary Care Provider [phone] Romaine Decker MD Unavailable [phone] Baljinder Morejon MD Unavailable Encounter Details Date Type Department Care Team (Late Contact Info) Description 02/27/2025 MyChart Message Enc [facility] Medical Group Family Medicine - [place] [address] [facility] [address] [place] [phone] Luann Valdovinos, BALANCE STAFF INSPECTOR [address] [place], [place] [address] follow up on genetics Social History Tobacco Use Types Packs/Day Years Used Date Smoking Tobacco: Never Smokeless Tobacco: Never Alcohol Use Standard Drinks/Week Comments Yes 0 (1 standard drink = 0.6 oz pur e alcohol) socially PHQ-2 Answer Date Recorded Patient Health Questionnaire-2 Score 0 09/13/2024 Comments No Sex and Gender Information Value Date Recorded Sex Assigned at Female 09/27/2024 2:16 PM CLINICAL MANAGER Legal Sex Female 6:54 PM CDT Gender Identity Female 02/22/2025 2:51 PM CDT Sexual Orientation Not on file 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 [address] [place] [address] 08/15/2025 2:00 PM CLINICAL MANAGER Treatment [facility], [facility] [address] [place] [address] None, Provider, 08/22/2025 2:00 PM CLINICAL MANAGER Treatment [facility], [facility] [address] [place] [address] None, Provider, 08/29/2025 2:00 PM CLINICAL MANAGER Treatment [facility], [facility] [address] [place] [address] None, Provider, 09/05/2025 2:00 PM CLINICAL MANAGER Treatment [facility], [facility] [address] [place] [address] None, Provider, 09/12/2025 2:00 PM CLINICAL MANAGER Treatment [facility], [facility] [address] [place] [address] None, Provider, 09/19/2025 2:00 PM CLINICAL MANAGER Treatment [facility], [facility] [address] [place] [address] None, Provider, 09/26/2025 2:00 PM CLINICAL MANAGER Treatment [facility], [facility] [address] [place] [address] None, Provider, documented as of this encounter Visit Diagnoses Not on filedocumented in this encounter Additional Health Concerns Assessment Noted Time PHQ-9 Depression Total Score: 8 02/19/20 24 9:53 AM CDT documented as of this encounter Care Teams Shirt Hemmer Relationship Specialty Start Date End Date Luann Valdovinos NP [address] [place] [address] PCP - General NURSE PRACTITIONER 10/30/23 Romaine Decker MD [facility] [address] [place] [address] Consulting Physician CARDIOVASCULAR DISEASE 06/20/24 Baljinder Morejon MD [facility] [address] [place] [address] Consulting Physician CLINICAL CARDIAC ELECTROPHYSIOLOGY 11/08/24 documented as of this encounter
--- OUTSIDE RECORDS SUMMARY | 2025-08-09 20:51 | XMS_ITS | Encounter Summary ---
Author Organization [facility] Address [facility] [place] [address] Care Team Providers Care Mcat Tutor Name Role Phone Amaris Castle Primary Care Provider [phone] Elizabeth Arnold MD Primary Care Provider [phone] Francois Dailey DO Primary Care Provider [phone] Luann Valdovinos NP Primary Care Provider [phone] Romaine Decker MD Unavailable [phone] Baljinder Morejon MD Unavailable Encounter Details Date Type Department Care Team (Late st Contact Info) Description 04/15/2021 Prep for Procedure [facility] One Day Services [place], [place] [id number] Eugene Petersen MD 3 [facility] [address] [place] [phone] Social History Tobacco Use Types Packs/Day Years Used Date Smoking Tobacco: Never Smokeless Tobacco: Never Alcohol Use Standard Drinks/Week Comments Yes 0 (1 standard drink = 0.6 oz pur e alcohol) socially PHQ-2 Answer Date Recorded PHQ-2 Score - If the patient scores above 3, please move on to questions 3-9 1 05/28/2020 Comments No Sex and Gender Information Value Date Recorded Sex Assigned at Female 09/27/2024 2:16 PM POLISHING MACHINE OPERATOR Legal Sex Female 6:54 PM CDT Gender Identity Female 02/22/2025 2:51 PM CDT Sexual Orientation Not on file COVID-19 Exposure Response Date Recorded In the last month, have you been in contact with someone who was confirmed or suspected to have Coronavirus / COVID-19? No / Unsure 04/18/2021 9:20 AM CDT documented as of this encounter Functional Status * Calculated C-SSRS Risk Score (Lifetime/Recent) Answer Date of Assessment Author Status No Risk Indicated 04/18/2021 9:52 AM CDT Huseyin Garza RN Active * [place] Suicide Severity Rating Scale (Screener/Recent Self-Report) Question Answer Date of Assessment Author Status 1. Wish to be (Past 1 Month) No 04/18/2021 9:52 AM CDT Farhat Garza RN Active 2. Non-Specific Active Suicidal Thoughts (Past 1 Month) No 04/18/2021 9:52 AM CDT Apple Garza RN Active 6. Suicidal Behavior (Lifetime) No 04/18/2021 9:52 AM CDT Apple Garza RN Active documented as of this encounter Plan of Treatment Upcoming Encounters Date Type Department Care Team (Late st Contact Info) Description 08/14/2025 4:30 PM POLISHING MACHINE OPERATOR Allied [facility], [facility] [address] [place] [address] Kory Brown MD [facility]. [facility] [address] [place] [address] 08/15/2025 2:00 PM POLISHING MACHINE OPERATOR Treatment [facility]fusion Services at [facility], [facility] [address] [place] [address] Medardo Rosenberg MD 08/22/2025 2:00 PM POLISHING MACHINE OPERATOR Treatment [facility]fusion Services at [facility], [facility] [address] [place] [address] Medardo Rosenberg MD 08/29/2025 2:00 PM POLISHING MACHINE OPERATOR Treatment [facility], [address] [address] Chet, MD Medardo 09/05/2025 2:00 PM POLISHING MACHINE OPERATOR Treatment [facility] Infusion Services at [address] [address] Chet, ProviderMD 09/12/2025 2:00 PM POLISHING MACHINE OPERATOR Treatment [facility] Infusion Services at [facility], [address] [address] Chet, ProviderMD 09/19/2025 2:00 PM POLISHING MACHINE OPERATOR Treatment [facility] Infusion Services at [address] [address] Chet, ProviderMD 09/26/2025 2:00 PM POLISHING MACHINE OPERATOR Treatment [facility] Infusion Services at [facility], [address] [address] Chet, ProviderMD documented as of this encounter Results * CORONAVIRUS (COVID 19) (04/16/2021 12:41 PM CDT) SPEC DESCRIPTION NASAL 04/16/20 12:41 PM CDT [facility] CORONAVIRUS SARS COV 2 PCR (RESP) NEGATIVE NEGATIVE 04/16/2021 10:43 PM CDT [facility] Comment: THE SARS-CoV-2 TEST HAS BEEN AUTHORIZED BY THE FDA UNDER AN EUA FOR USE BY AUTHORIZED LABORATORIES. PERFORMED BY NUCLEIC ACID AMPLIFICATION PCR FIRST TEST UNKNOWN 04/16/2021 12:41 PM CDT [facility] EMPLOYED IN HEALTHCARE NO 04/16/2021 12:41 PM CDT [facility] SYMPTOMATIC DEFINED BY CDC NO 04/16/2021 12:41 PM CDT [facility] HOSPITALIZATION STATUS NO 04/16/2021 12:41 PM CDT [facility] PATIENT IN ICU NO 04/16/2021 12:41 PM CDT [facility] RESIDENT OF [facility] C[facility] NO 04/16/2021 12:41 PM CDT [facility] NOT 04/16/2021 12:41 PM CDT [facility] NASAL STRUCTURE / Unknown 04/16/2021 12:41 PM CDT Eugene Petersen MD MICROBIOLOGY - GENERAL ORDERABLE S Final Result Performing Organization Address City/State/[facility] Co de Phone Number [facility] [address] [place] [address], [facility] [address] [place] [address], documented in this encounter Visit Diagnoses Diagnosis Abdominal pain- Primary Abdominal pain, unspecified site documented in this encounter Additional Health Concerns Infection Onset Date Last Indicated Resolved Time COVID-19 Rule Out 04/16/2021 04/16/2021 04/16/2021 10:43 PM CDT Assessment Noted Time PHQ-9 Depression Total Score: 3 05/28/20 20 1:45 PM CDT documented as of this encounter Care Teams Mcat Tutor Relationship Specialty Start Date End Date Amaris Castle FNP [address] [place] [address] PCP - General Nurse Practitioner Family 04/17/2003/25 Elizabeth Arnold MD [address] [place] [address] PCP - General INTERNAL MEDICINE 04/22/21 12/17/22 Francois Dailey DO [address] [facility] [address] [place] [address] PCP - General FAMILY PRACTICE 02/21/23 10/29/23 Luann Valdovinos NP [address] [place] [address] PCP - General NURSE PRACTITIONER 10/30/23 Romaine Decker MD Three [facility]. [address] [address] Consulting Physician CARDIOVASCULAR DISEASE 06/20/24 Baljinder Morejon MD [facility] [address] [phone] Consulting Physician CLINICAL CARDIAC ELECTROPHYSIOLOGY 11/08/24 documented as of this encounter
--- OUTSIDE RECORDS SUMMARY | 2025-08-09 20:51 | XMS_ITS | Encounter Summary ---
Author Organization [facility] Address [facility] [place] [address] Care Team Providers Care Quality Process Engineer Name Role Phone Francois Dailey DO Primary Care Provider [phone] Luann Valdovinos NP Primary Care Provider [phone] Romaine Decker MD Unavailable [phone] Baljinder Morejon MD Unavailable Encounter Details Date Type Department Care Team (Late Contact Info) Description 02/18/2023 MyChart Message Enc [facility] - [facility] [address] [place], [place] [address] [facility], [facility] Provider Air Quality Message Social History Tobacco Use Types Packs/Day Years Used Date Smoking Tobacco: Never Smokeless Tobacco: Never Alcohol Use Standard Drinks/Week Comments Yes 0 (1 standard drink = 0.6 oz pur e alcohol) socially PHQ-2 Answer Date Recorded Patient Health Questionnaire-2 Score 0 10/21/2022 Comments No Sex and Gender Information Value Date Recorded Sex Assigned at Female 09/27/2024 2:16 PM LIVESTOCK TRADER Legal Sex Female 6:54 PM CDT Gender Identity Female 02/22/2025 2:51 PM CDT Sexual Orientation Not on file 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 [facility] [address] [place] [address] 08/15/2025 2:00 PM LIVESTOCK TRADER Treatment [facility], [facility] [address] [place] [address] None, ProviderMD 08/22/2025 2:00 PM LIVESTOCK TRADER Treatment [facility], [facility] [address] [place] [address] None, ProviderMD 08/29/2025 2:00 PM LIVESTOCK TRADER Treatment [facility], [facility] [address] [place] [address] None, ProviderMD 09/05/2025 2:00 PM LIVESTOCK TRADER Treatment [facility], [facility] [address] [place] [address] None, ProviderMD 09/12/2025 2:00 PM LIVESTOCK TRADER Treatment [facility], [facility] [address] [place] [address] None, ProviderMD 09/19/2025 2:00 PM LIVESTOCK TRADER Treatment [facility], [facility] [address] [place] [address] None, ProviderMD 09/26/2025 2:00 PM LIVESTOCK TRADER Treatment [facility], [facility] [address] [place] [address] None, ProviderMD documented as of this encounter Visit Diagnoses Not on filedocumented in this encounter Additional Health Concerns Assessment Noted Time PHQ-9 Depression Total Score: 10 023 9:32 AM LIVESTOCK TRADER documented as of this encounter Care Teams Quality Process Engineer Relationship Specialty Start Date End Date Francois Dailey DO [address] [facility] [address] [place] [place] [address] PCP - General FAMILY PRACTICE 02/21/23 10/29/23 Luann Valdovinos NP [address] [place] [address] PCP - General NURSE PRACTITIONER 10/30/23 Romaine Decker MD [facility]. [facility] [address] [place], [place] [address] Consulting Physician CARDIOVASCULAR DISEASE 06/20/24 Baljinder Morejon MD [facility]. [facility] [address] [place], [place] [address] Consulting Physician CLINICAL CARDIAC ELECTROPHYSIOLOGY 11/08/24 documented as of this encounter
--- OUTSIDE RECORDS SUMMARY | 2025-08-09 20:51 | XMS_ITS | Clinical Summary ---
Author Organization [facility] Address [address] [place] [address] Care Team Providers Care Process Owner Name Role Phone Unavailable Primary Care Provider Unavailabl e Social History Tobacco Use Types Packs/Day Years Used Date Smoking Tobacco: Never Assessed Comments Unknown Sex and Gender Information Value Date Recorded Sex Assigned at Not on file Legal Sex Female 9:58 AM BUSINESS CONTINUITY MANAGEMENT DIRECTOR Gender Identity Not on file Sexual Orientation Not on file Plan of Treatment Health Maintenance Due Date Last Done Comments DTAP/TDAP/TD VACCINES (1 - Tdap) 2006 HEPATITIS B VACCINES (1 of 3 - 19+ 3-dose series) 01/23 HPV/Cotest (21-29) 02/11/2008 CERVICAL CANCER SCREENING 2017 HPV/Cotest (30-65) 2017 PAP SMEAR 2017 INFLUENZA VACCINE (#1) 2025 08/24/2020 HPV VACCINES (No Doses Required) Completed Insurance [facility]
--- OUTSIDE RECORDS SUMMARY | 2025-08-09 20:51 | XMS_ITS | Encounter Summary ---
Author Organization [facility] Address [facility] [place] [address] Care Team Providers Care Razor Sharpener Name Role Phone Elizabeth Arnold MD Primary Care Provider [phone] Francois Dailey DO Primary Care Provider [phone] Luann Valdovinos NP Primary Care Provider [phone] Romaine Decker MD Unavailable [phone] Baljinder Morejon MD Unavailable Encounter Details Date Type Department Care Team (Late st Contact Info) Description 12/30/2021 MyCRentColumn Communicationst Message Enc [facility] Medical [facility] Family & Internal Medicine [address] [address] [place] [id number] [place] [address] Appointment Social History Tobacco Use Types Packs/Day Years [...] Sex Assigned at Female 09/27/2024 2:16 PM FEATHER WASHER Legal Sex Female 6:54 PM CDT Gender Identity Female 02/22/2025 2:51 PM CDT Sexual Orientation Not on file 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 Unable to assess 12/30/2021 7:15 AM CDT documented as of this encounter Plan of Treatment Upcoming Encounters Date Type Department Care Team (Late st Contact Info) Description 08/14/2025 4:30 PM FEATHER WASHER Allied Health/Nurse Visit Tiffanie mccollum [facility], [address] [place] [address] Kory Brown MD [facility]. [facility] [address] [place] [address] 08/15/2025 2:00 PM FEATHER WASHER Treatment [facility], [facility] [address] [place] [address] None, ProviderMD 08/22/2025 2:00 PM FEATHER WASHER Treatment [facility], [facility] [address] [place] [address] Chet, ProviderMD 08/29/2025 2:00 PM FEATHER WASHER Treatment [facility], [facility] [address] [place] [address] None, ProviderMD 09/05/2025 2:00 PM FEATHER WASHER Treatment [facility], [facility] [address] [place] [address] None, ProviderMD 09/12/2025 2:00 PM FEATHER WASHER Treatment [facility], [facility] [address] [place] [address] None, ProviderMD 09/19/2025 2:00 PM FEATHER WASHER Treatment [facility] at [facility], [facility] [address] [place] [address] Chet, ProviderMD 09/26/2025 2:00 PM FEATHER WASHER Treatment [facility] at [facility], [facility] [address] [place] [address] None, ProviderMD documented as of this encounter Visit Diagnoses Not on filedocumented in this encounter Additional Health Concerns Assessment Noted Time PHQ-9 Depression Total Score: 0 11/05/19 4:56 PM CDT documented as of this encounter Care Teams Razor Sharpener Relationship Specialty Start Date End Date Elizabeth Arnold MD PCP - General INTERNAL MEDICINE 04/22/21 12/17/22 Francois Dailey DO [facility] [address] [facility] [address] [place] [address] PCP - General FAMILY PRACTICE 02/21/23 10/29/23 Luann Valdovinos NP [address] [place] [address] PCP - General NURSE PRACTITIONER 10/30/23 Romaine eDcker MD [facility]. [facility] [address] [place] [address] Consulting Physician CARDIOVASCULAR DISEASE 06/20/24 Baljinder Morejon MD [facility]. [facility] [address] [place] [address] Consulting Physician CLINICAL CARDIAC ELECTROPHYSIOLOGY 11/08/24 documented as of this encounter
--- OUTSIDE RECORDS SUMMARY | 2025-08-09 20:51 | XMS_ITS | Encounter Summary ---
Author Organization [facility] Address [facility] [place] [address] Care Team Providers Care School Bus Operator Name Role Phone Francois Dailey DO Primary Care Provider [phone] Luann Valdovinos NP Primary Care Provider [phone] Romaine Decker MD Unavailable [phone] Baljinder Morejon MD Unavailable Encounter Details Date Type Department Care Team (Late Contact Info) Description 12/18/2022 MyChart Message Enc [facility] Medical Group Family & Internal Medicine [address] [address] Mehran, [facility] Provider medication refill Social History Tobacco Use Types Packs/Day Years Used Date Smoking Tobacco: Never Smokeless Tobacco: Never Alcohol Use Standard Drinks/Week Comments Yes 0 (1 standard drink = 0.6 oz pur e alcohol) socially PHQ-2 Answer Date Recorded Patient Health Questionnaire-2 Score 0 10/21/2022 Comments No Sex and Gender Information Value Date Recorded Sex Assigned at Female 09/27/2024 2:16 PM PASTRY SOUS CHEF Legal Sex Female 6:54 PM CDT Gender Identity Female 02/22/2025 2:51 PM CDT Sexual Orientation Not on file 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 [place] [address] [place] [address] 08/15/2025 2:00 PM PASTRY SOUS CHEF Treatment [facility], [facility] [address] [place] [address] None, Provider, 08/22/2025 2:00 PM PASTRY SOUS CHEF Treatment [facility], [facility] [address] [place] [address] None, Provider, 08/29/2025 2:00 PM PASTRY SOUS CHEF Treatment [facility], [facility] [address] [place] [address] None, Provider, 09/05/2025 2:00 PM PASTRY SOUS CHEF Treatment [facility], [facility] [address] [place] [address] None, Provider, 09/12/2025 2:00 PM PASTRY SOUS CHEF Treatment [facility], [facility] [address] [place] [address] None, Provider, 09/19/2025 2:00 PM PASTRY SOUS CHEF Treatment [facility], [facility] [address] [place] [address] None, Provider, 09/26/2025 2:00 PM PASTRY SOUS CHEF Treatment [facility], [facility] [address] [place], [place] [address] None, ProviderMD documented as of this encounter Visit Diagnoses Not on filedocumented in this encounter Additional Health Concerns Assessment Noted Time PHQ-9 Depression Total Score: 10 023 9:32 AM PASTRY SOUS CHEF documented as of this encounter Care Teams School Bus Operator Relationship Specialty Start Date End Date Francois Dailey DO [facility] [address] [place], [place] [address] PCP - General FAMILY PRACTICE 02/21/23 10/29/23 Luann Valdovinos NP [address] [place] [address] PCP - General NURSE PRACTITIONER 10/30/23 Romaine Decker MD Three [facility]. [facility] [address] [place] [address] Consulting Physician CARDIOVASCULAR DISEASE 06/20/24 Baljinder Morejon MD Three [facility]. [facility] [address] [place], [place] [address] Consulting Physician CLINICAL CARDIAC ELECTROPHYSIOLOGY 11/08/24 documented as of this encounter
--- OUTSIDE RECORDS SUMMARY | 2025-08-09 20:51 | XMS_ITS | Encounter Summary ---
Author Organization [facility] Address [facility] [place] [address] Care Team Providers Care Hair Salon Manager Name Role Phone Luann Valdovinos NP Primary Care Provider [phone] Romaine Decker MD Unavailable [phone] Baljinder Morejon MD Unavailable Encounter Details Date Type Department Care Team (Late Contact Info) Description 08/08/2024 MyCL-3 GCS Message Enc [facility], [address] [address] Mehran, [facility] Provider Symtom received in Carelink Social History Tobacco Use Types Packs/Day Years Used Date Smoking Tobacco: Never Smokeless Tobacco: Never Alcohol Use Standard Drinks/Week Comments Yes 0 (1 standard drink = 0.6 oz pur e alcohol) socially PHQ-2 Answer Date Recorded Patient Health Questionnaire-2 Score 2 02/19/2024 Comments No Sex and Gender Information Value Date Recorded Sex Assigned at Female 09/27/2024 2:16 PM PERCUSSION TEACHER Legal Sex Female 6:54 PM CDT Gender Identity Female 02/22/2025 2:51 PM CDT Sexual Orientation Not on file 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 [facility] [address] [place] [address] 08/15/2025 2:00 PM PERCUSSION TEACHER Treatment [facility], [facility] [address] [place] [address] None, ProviderMD 08/22/2025 2:00 PM PERCUSSION TEACHER Treatment [facility], [facility] [address] [place] [address] None, ProviderMD 08/29/2025 2:00 PM PERCUSSION TEACHER Treatment [facility], [facility] [address] [place] [address] None, ProviderMD 09/05/2025 2:00 PM PERCUSSION TEACHER Treatment [facility], [place] [address] [place] [address] None, ProviderMD 09/12/2025 2:00 PM PERCUSSION TEACHER Treatment [facility], [place] [address] [place] [address] None, ProviderMD 09/19/2025 2:00 PM PERCUSSION TEACHER Treatment [facility], [facility] [address] [place] [address] None, ProviderMD 09/26/2025 2:00 PM PERCUSSION TEACHER Treatment [facility], [facility] [address] [place] [address] None, ProviderMD documented as of this encounter Visit Diagnoses Not on filedocumented in this encounter Additional Health Concerns Assessment Noted Time PHQ-9 Depression Total Score: 8 02/19/20 24 9:53 AM CDT documented as of this encounter Care Teams Hair Salon Manager Relationship Specialty Start Date End Date Luann Valdovinos NP [address] [place] [address] PCP - General NURSE PRACTITIONER 10/30/23 Romaine Decker MD Three [facility]. [address] [place] [address] Consulting Physician CARDIOVASCULAR DISEASE 06/20/24 Baljinder Morejon MD [facility]. [address] [place], [place] [address] Consulting Physician CLINICAL CARDIAC ELECTROPHYSIOLOGY 11/08/24 documented as of this encounter
--- OUTSIDE RECORDS SUMMARY | 2025-08-09 20:51 | XMS_ITS | Encounter Summary ---
Author Organization [facility] Address [facility] [place] [address] Care Team Providers Care Environmental Studies Faculty Member Name Role Phone Luann Valdovinos NP Primary Care Provider [phone] Romaine Decker MD Unavailable [phone] Baljinder Morejon MD Unavailable Encounter Details Date Type Department Care Team (Late st Contact Info) Description 08/18/2024 Zenphhart Message Enc [facility] Medical Group Family Medicine - [place] [address] [facility] [address] [place] [id number] Luann Valdovinos, FOOD ORDER DELIVERY RUNNER [address] [place] [id number] Appointment Social History Tobacco Use Types Packs/Day Years Used Date Smoking Tobacco: Never Smokeless Tobacco: Never Alcohol Use Standard Drinks/Week Comments Yes 0 (1 standard drink = 0.6 oz pur e alcohol) socially PHQ-2 Answer Date Recorded Patient Health Questionnaire-2 Score 2 02/19/2024 Comments No Sex and Gender Information Value Date Recorded Sex Assigned at Female 09/27/2024 2:16 PM OPTIMIZATION SPECIALIST Legal Sex Female 6:54 PM CDT Gender Identity Female 02/22/2025 2:51 PM CDT Sexual Orientation Not on file 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 [facility] [address] [place] [address] 08/15/2025 2:00 PM OPTIMIZATION SPECIALIST Treatment [facility], [facility] [address] [place] [address] None, Provider, 08/22/2025 2:00 PM OPTIMIZATION SPECIALIST Treatment [facility], [place] [address] [place] [address] None, Provider, 08/29/2025 2:00 PM OPTIMIZATION SPECIALIST Treatment [facility], [facility] [address] [place] [address] None, Provider, 09/05/2025 2:00 PM OPTIMIZATION SPECIALIST Treatment [facility], [place] [address] [place] [address] None, Provider, 09/12/2025 2:00 PM OPTIMIZATION SPECIALIST Treatment [facility], [place] [address] [place] [address] None, Provider, 09/19/2025 2:00 PM OPTIMIZATION SPECIALIST Treatment [facility], [place] [address] [place] [address] None, Provider, 09/26/2025 2:00 PM OPTIMIZATION SPECIALIST Treatment [facility], [address] [address] None, Provider, documented as of this encounter Visit Diagnoses Not on filedocumented in this encounter Additional Health Concerns Assessment Noted Time PHQ-9 Depression Total Score: 8 02/19/20 24 9:53 AM CDT documented as of this encounter Care Teams Environmental Studies Faculty Member Relationship Specialty Start Date End Date Luann Valdovinos NP [address] [place] [address] PCP - General NURSE PRACTITIONER 10/30/23 Romaine Decker MD Three [facility]. [address] [address] Consulting Physician CARDIOVASCULAR DISEASE 06/20/24 [facility] [address] [address] Consulting Physician CLINICAL CARDIAC ELECTROPHYSIOLOGY 11/08/24 documented as of this encounter
--- OUTSIDE RECORDS SUMMARY | 2025-08-09 20:51 | XMS_ITS | Encounter Summary ---
Author Organization [facility] Address [facility] [place] [address] Care Team Providers Care Signal And Communications Maintainer Name Role Phone Francois Dailey DO Primary Care Provider [phone] Luann Valdovinos NP Primary Care Provider [phone] Romaine Decker MD Unavailable [phone] Baljinder Morejon MD Unavailable Encounter Details Date Type Department Care Team (Late Contact Info) Description 02/12/2023 MyChart Message Enc [facility] [address] [address] [facility] Provider Carelink Transmission Received Social History Tobacco Use Types Packs/Day Years Used Date Smoking Tobacco: Never Smokeless Tobacco: Never Alcohol Use Standard Drinks/Week Comments Yes 0 (1 standard drink = 0.6 oz pur e alcohol) socially PHQ-2 Answer Date Recorded Patient Health Questionnaire-2 Score 0 10/21/2022 Comments No Sex and Gender Information Value Date Recorded Sex Assigned at Female 09/27/2024 2:16 PM THERMOCOUPLE TESTER Legal Sex Female 6:54 PM CDT Gender Identity Female 02/22/2025 2:51 PM CDT Sexual Orientation Not on file 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 [facility] [address] [place] [address] 08/15/2025 2:00 PM THERMOCOUPLE TESTER Treatment [facility], [facility] [address] [place] [address] None, Provider, 08/22/2025 2:00 PM THERMOCOUPLE TESTER Treatment [facility], [facility] [address] [place] [address] None, Provider, 08/29/2025 2:00 PM THERMOCOUPLE TESTER Treatment [facility], [facility] [address] [place] [address] None, Provider, 09/05/2025 2:00 PM THERMOCOUPLE TESTER Treatment [facility], [facility] [address] [place] [address] None, Provider, 09/12/2025 2:00 PM THERMOCOUPLE TESTER Treatment [facility], [facility] [address] [place] [address] None, Provider, 09/19/2025 2:00 PM THERMOCOUPLE TESTER Treatment [facility], [facility] [address] [place] [address] None, Provider, 09/26/2025 2:00 PM THERMOCOUPLE TESTER Treatment [facility], [facility] [address] [place] [address] None, Provider, documented as of this encounter Visit Diagnoses Not on filedocumented in this encounter Additional Health Concerns Assessment Noted Time PHQ-9 Depression Total Score: 10 023 9:32 AM THERMOCOUPLE TESTER documented as of this encounter Care Teams Signal And Communications Maintainer Relationship Specialty Start Date End Date Francois Dailey DO [address] [facility] [address] [place], [place] [id number] PCP - General FAMILY PRACTICE 02/21/23 10/29/23 Luann Valdovinos NP [address] [place] [address] PCP - General NURSE PRACTITIONER 10/30/23 Romaine Decker MD Three [facility]. [address] [address] Consulting Physician CARDIOVASCULAR DISEASE 06/20/24 Baljinder Morejon MD [facility]. [facility] [address] [place], [place] [address] Consulting Physician CLINICAL CARDIAC ELECTROPHYSIOLOGY 11/08/24 documented as of this encounter
--- OUTSIDE RECORDS SUMMARY | 2025-08-09 20:51 | XMS_ITS | Encounter Summary ---
Author Organization [facility] Address [facility] [place] [address] Care Team Providers Care Computational Mathematician Name Role Phone Elizabeth Arnold MD Primary Care Provider [phone] Francois Dailey DO Primary Care Provider [phone] Luann Valdovinos NP Primary Care Provider [phone] Romaine Decker MD Unavailable [phone] Baljinder Morejon MD Unavailable Encounter Details Date Type Department Care Team (Late st Contact Info) Description 07/29/2021 BurudaConcertt Message Enc [facility] Family & Internal Medicine [address] [address] [place] [id number] [place] [place] [address] Appointment Social History Tobacco Use Types [...] Sex Assigned at Female 09/27/2024 2:16 PM ETHNIC STUDIES PROFESSOR Legal Sex Female 6:54 PM CDT Gender Identity Female 02/22/2025 2:51 PM CDT Sexual Orientation Not on file 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 No / Unsure 07/08/2021 5:26 PM ETHNIC STUDIES PROFESSOR documented as of this encounter Plan of Treatment Upcoming Encounters Date Type Department Care Team (Late st Contact Info) Description 08/14/2025 4:30 PM ETHNIC STUDIES PROFESSOR Allied Health/Nurse Visit [facility], [address] [place] [address] Kory Brown MD [facility]. [facility] [address] [place] [address] 08/15/2025 2:00 PM ETHNIC STUDIES PROFESSOR Treatment [facility], [facility] [address] [place] [address] None, ProviderMD 08/22/2025 2:00 PM ETHNIC STUDIES PROFESSOR Treatment [facility], [facility] [address] [place] [address] None, ProviderMD 08/29/2025 2:00 PM ETHNIC STUDIES PROFESSOR Treatment [facility], [facility] [address] [place] [address] None, ProviderMD 09/05/2025 2:00 PM ETHNIC STUDIES PROFESSOR Treatment [facility], [facility] [address] [place] [address] None, ProviderMD 09/12/2025 2:00 PM ETHNIC STUDIES PROFESSOR Treatment [facility], [facility] [address] [place] [address] None, ProviderMD 09/19/2025 2:00 PM ETHNIC STUDIES PROFESSOR Treatment [facility] at [facility], [facility] [address] [place] [address] Chet, MD Medardo 09/26/2025 2:00 PM ETHNIC STUDIES PROFESSOR Treatment [facility] at [facility], [facility] [address] [place] [address] None, ProviderMD documented as of this encounter Visit Diagnoses Not on filedocumented in this encounter Additional Health Concerns Assessment Noted Time PHQ-9 Depression Total Score: 3 05/28/20 20 1:45 PM CDT documented as of this encounter Care Teams Computational Mathematician Relationship Specialty Start Date End Date Elizabeth Arnold MD PCP - General INTERNAL MEDICINE 04/22/21 12/17/22 Francois Dailey DO [address] [facility] [address] [facility] [address] [place] [address] PCP - General FAMILY PRACTICE 02/21/23 10/29/23 Luann Valdovinos NP [address] [place] [address] PCP - General NURSE PRACTITIONER 10/30/23 Romaine Decker MD [facility]. [facility] [address] [place] [address] Consulting Physician CARDIOVASCULAR DISEASE 06/20/24 Baljinder Morejon MD [facility]. [facility] [address] [place] [address] Consulting Physician CLINICAL CARDIAC ELECTROPHYSIOLOGY 11/08/24 documented as of this encounter
--- OUTSIDE RECORDS SUMMARY | 2025-08-09 20:51 | XMS_ITS | Encounter Summary ---
Author Organization [facility] Address [facility] [place] [address] Care Team Providers Care Chief Crna Name Role Phone Francois Dailey DO Primary Care Provider [phone] Luann Valdovinos NP Primary Care Provider [phone] Romaine Decker MD Unavailable [phone] Baljinder Morejon MD Unavailable Encounter Details Date Type Department Care Team (Late Contact Info) Description 03/19/2023 MyChart Message Enc [facility] [address] [address] [facility] Provider Carelink Transmission Received Social [...] Sex Assigned at Female 09/27/2024 2:16 PM MONOGRAM AND LETTER PASTER Legal Sex Female 6:54 PM CDT Gender Identity Female 02/22/2025 2:51 PM CDT Sexual Orientation Not on file 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 [facility] [address] [place] [address] 08/15/2025 2:00 PM MONOGRAM AND LETTER PASTER Treatment [facility], [facility] [address] [place] [address] None, Provider, 08/22/2025 2:00 PM MONOGRAM AND LETTER PASTER Treatment [facility], [facility] [address] [place] [address] None, Provider, 08/29/2025 2:00 PM MONOGRAM AND LETTER PASTER Treatment [facility], [facility] [address] [place] [address] None, Provider, 09/05/2025 2:00 PM MONOGRAM AND LETTER PASTER Treatment [facility], [facility] [address] [place] [address] None, Provider, 09/12/2025 2:00 PM MONOGRAM AND LETTER PASTER Treatment [facility], [facility] [address] [place] [address] None, Provider, 09/19/2025 2:00 PM MONOGRAM AND LETTER PASTER Treatment [facility], [facility] [address] [place] [address] None, Provider, 09/26/2025 2:00 PM MONOGRAM AND LETTER PASTER Treatment [facility], [facility] [address] [place] [address] None, Provider, documented as of this encounter Visit Diagnoses Not on filedocumented in this encounter Additional Health Concerns Assessment Noted Time PHQ-9 Depression Total Score: 10 023 9:32 AM MONOGRAM AND LETTER PASTER documented as of this encounter Care Teams Chief Crna Relationship Specialty Start Date End Date Francois Dailey DO [address] [facility] 200 [place], [place] [id number] PCP - General FAMILY PRACTICE 02/21/23 10/29/23 Luann Valdovinos NP [address] [place] [address] PCP - General NURSE PRACTITIONER 10/30/23 Romaine Decker MD Three [facility]. [address] [address] Consulting Physician CARDIOVASCULAR DISEASE 06/20/24 Baljinder Morejon MD Three [facility]. [facility] [address] [place], [place] [address] Consulting Physician CLINICAL CARDIAC ELECTROPHYSIOLOGY 11/08/24 documented as of this encounter
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
--- OUTSIDE RECORDS SUMMARY | 2025-08-09 20:51 | XMS_ITS | Encounter Summary ---
Author Organization [facility] Address Critical access hospital[address] [place] [address] Care Team Providers Care Visual Merchandising Manager Name Role Phone Elizabeth Arnold MD Primary Care Provider [phone] Francois Dailey DO Primary Care Provider [phone] Luann Valdovinos NP Primary Care Provider [phone] Romaine Dekcer MD Unavailable [phone] Baljinder Morejon MD Unavailable Encounter Details Date Type Department Care Team (Late st Contact Info) Description 05/13/2021 MyCH2scant Message Enc [facility] Medical Group Family & Internal Medicine [address] [address] Elizabeth Arnold [place] [id number] [place] [address] RE: Test Results Social History Tobacco Use Types Packs/Day Years [...] Sex Assigned at Female 09/27/2024 2:16 PM BEHAVIORAL HEALTH ASSISTANT Legal Sex Female 6:54 PM CDT Gender Identity Female 02/22/2025 2:51 PM CDT Sexual Orientation Not on file 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 No / Unsure 05/10/2021 7:42 AM CDT documented as of this encounter Plan of Treatment Upcoming Encounters Date Type Department Care Team (Late st Contact Info) Description 08/14/2025 4:30 PM BEHAVIORAL HEALTH ASSISTANT [facility], [address] [place] [address] Kory Brown MD [facility]. [facility] [address] [place] [address] 08/15/2025 2:00 PM BEHAVIORAL HEALTH ASSISTANT Treatment [facility], [facility] [address] [place] [address] None, ProviderMD 08/22/2025 2:00 PM BEHAVIORAL HEALTH ASSISTANT Treatment [facility], [facility] [address] [place] [address] Chet, ProviderMD 08/29/2025 2:00 PM BEHAVIORAL HEALTH ASSISTANT Treatment [facility], [facility] [address] [place] [address] None, ProviderMD 09/05/2025 2:00 PM BEHAVIORAL HEALTH ASSISTANT Treatment [facility], [facility] [address] [place] [address] None, ProviderMD 09/12/2025 2:00 PM BEHAVIORAL HEALTH ASSISTANT Treatment [facility], [facility] [address] [place] [address] None, ProviderMD 09/19/2025 2:00 PM BEHAVIORAL HEALTH ASSISTANT Treatment [facility] at [facility], [facility] [address] [place] [address] None, ProviderMD 09/26/2025 2:00 PM BEHAVIORAL HEALTH ASSISTANT Treatment [facility] Services at [facility], [facility] [address] [place] [address] None, Provider, documented as of this encounter Visit Diagnoses Not on filedocumented in this encounter Additional Health Concerns Assessment Noted Time PHQ-9 Depression Total Score: 3 05/28/20 20 1:45 PM CDT documented as of this encounter Care Teams Visual Merchandising Manager Relationship Specialty Start Date End Date Elizabeth Arnold MD PCP - General INTERNAL MEDICINE 04/22/21 12/17/22 Francois Dailey DO [facility] [address] [place] [address] PCP - General FAMILY PRACTICE 02/21/23 10/29/23 Luann Valdovinos NP [address] [place] [address] PCP - General NURSE PRACTITIONER 10/30/23 Romaine Decker MD [facility]. [address] [place] [address] Consulting Physician CARDIOVASCULAR DISEASE 06/20/24 Baljinder Morejon MD [facility]. [address] [place] [address] Consulting Physician CLINICAL CARDIAC ELECTROPHYSIOLOGY 11/08/24 documented as of this encounter
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
--- OUTSIDE RECORDS SUMMARY | 2025-08-09 20:51 | XMS_ITS | Encounter Summary ---
Author Organization [facility] Address [facility] [place] [address] Care Team Providers Care Alarm Field Technician Name Role Phone Luann Valdovinos NP Primary Care Provider [phone] Romaine Decker MD Unavailable [phone] Baljinder Morejon MD Unavailable Encounter Details Date Type Department Care Team (Latest Contact Info) Description 02/22/2025 MyChart Message Enc [facility] Medical Group Family Medicine - [place] [address] [facility] [address] [place] [phone] Luann Valdovinos, CONTROL CENTER OPERATOR [address] [place] [address] [place] [address] [phone] From our conversation today Social History Tobacco Use Types Packs/Day Years Used Date Smoking Tobacco: Never Smokeless Tobacco: Never Alcohol Use Standard Drinks/Week Comments Yes 0 (1 standard drink = 0.6 oz pur e alcohol) socially PHQ-2 Answer Date Recorded Patient Health Questionnaire-2 Score 0 09/13/2024 Comments No Sex and Gender Information Value Date Recorded Sex Assigned at Female 09/27/2024 2:16 PM ELECTRICIAN SOUND Legal Sex Female 6:54 PM CDT Gender Identity Female 02/22/2025 2:51 PM CDT Sexual Orientation Not on file 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 [facility] [address] [place] [address] 08/15/2025 2:00 PM ELECTRICIAN SOUND Treatment [facility], [facility] [address] [place] [address] None, Provider, 08/22/2025 2:00 PM ELECTRICIAN SOUND Treatment [facility], [facility] [address] [place] [address] None, Provider, 08/29/2025 2:00 PM ELECTRICIAN SOUND Treatment [facility], [facility] [address] [place] [address] None, Provider, 09/05/2025 2:00 PM ELECTRICIAN SOUND Treatment [facility], [facility] [address] [place] [address] None, Provider, 09/12/2025 2:00 PM ELECTRICIAN SOUND Treatment [facility], [facility] [address] [place] [address] None, Provider, 09/19/2025 2:00 PM ELECTRICIAN SOUND Treatment [facility], [facility] [address] [place] [address] None, Provider, 09/26/2025 2:00 PM ELECTRICIAN SOUND Treatment [facility], [facility] [address] [place] [address] None, Provider, documented as of this encounter Visit Diagnoses Not on filedocumented in this encounter Additional Health Concerns Assessment Noted Time PHQ-9 Depression Total Score: 8 02/19/20 24 9:53 AM CDT documented as of this encounter Care Teams Alarm Field Technician Relationship Specialty Start Date End Date Luann Valdovinos NP [address] [place] [address] PCP - General NURSE PRACTITIONER 10/30/23 Rom[facility] [address] [place] [address] Consulting Physician CARDIOVASCULAR DISEASE 06/20/24 Baljinder Morejon MD [address] [facility]. [facility] [address] [place] [address] Consulting Physician CLINICAL CARDIAC ELECTROPHYSIOLOGY 11/08/24 documented as of this encounter
--- OUTSIDE RECORDS SUMMARY | 2025-08-09 20:51 | XMS_ITS | Encounter Summary ---
Author Organization [facility] Address [facility] [place] [address] Care Team Providers Care Cargo Tank Mechanic Name Role Phone Luann Valdovinos NP Primary Care Provider [phone] Romaine Decker MD Unavailable [phone] Baljinder Morejon MD Unavailable Encounter Details Date Type Department Care Team (Late Contact Info) Description 05/03/2025 MyChart Message Enc [facility] Medical Group Family Medicine - [place] [address] [facility] [address] [place] [phone] Luann Valdovinos, GOVERNMENT AUDITOR [address] [place], [place] [address] Dietitian Social History Tobacco Use Types Packs/Day Years Used Date Smoking Tobacco: Never Smokeless Tobacco: Never Alcohol Use Standard Drinks/Week Comments Yes 0 (1 standard drink = 0.6 oz pur e alcohol) rare, once or twice a year PHQ-2 Answer Date Recorded Patient Health Questionnaire-2 Score 0 04/05/2025 Comments No Sex and Gender Information Value Date Recorded Sex Assigned at Female 09/27/2024 2:16 PM TIER TRUCK DRIVER Legal Sex Female 6:54 PM CDT Gender Identity Female 02/22/2025 2:51 PM CDT Sexual Orientation Not on file 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 [place] [address] [place] [address] 08/15/2025 2:00 PM TIER TRUCK DRIVER Treatment [facility], [facility] [address] [place] [address] None, Provider, 08/22/2025 2:00 PM TIER TRUCK DRIVER Treatment [facility], [facility] [address] [place] [address] None, Provider, 08/29/2025 2:00 PM TIER TRUCK DRIVER Treatment [facility], [facility] [address] [place] [address] None, Provider, 09/05/2025 2:00 PM TIER TRUCK DRIVER Treatment [facility], [facility] [address] [place] [address] None, Provider, 09/12/2025 2:00 PM TIER TRUCK DRIVER Treatment [facility], [facility] [address] [place] [address] None, Provider, 09/19/2025 2:00 PM TIER TRUCK DRIVER Treatment [facility], [facility] [address] [place] [address] None, Provider, 09/26/2025 2:00 PM TIER TRUCK DRIVER Treatment [facility], [facility] [address] [place] [address] None, ProviderMD documented as of this encounter Visit Diagnoses Not on filedocumented in this encounter Additional Health Concerns Assessment Noted Time PHQ-9 Depression Total Score: 8 02/19/20 24 9:53 AM CDT documented as of this encounter Care Teams Cargo Tank Mechanic Relationship Specialty Start Date End Date Luann Valdovinos NP [address] [place] [address] PCP - General NURSE PRACTITIONER 10/30/23 Romaine Decker MD Three [facility]. [facility] [address] [place] [address] Consulting Physician CARDIOVASCULAR DISEASE 06/20/24 Baljinder Morejon MD Three [facility]. [facility] [address] [place] [address] Consulting Physician CLINICAL CARDIAC ELECTROPHYSIOLOGY 11/08/24 documented as of this encounter
--- OUTSIDE RECORDS SUMMARY | 2025-08-09 20:51 | XMS_ITS | Encounter Summary ---
Author Organization [facility] Address [facility] [place] [address] Care Team Providers Care Wilton Weaver Name Role Phone Elizabeth Arnold MD Primary Care Provider [phone] Francois Dailey DO Primary Care Provider [phone] Luann Valdovinos NP Primary Care Provider [phone] Romaine Decker MD Unavailable [phone] Baljinder Morejon MD Unavailable Encounter Details Date Type Department Care Team (Late st Contact Info) Description 09/25/2022 MyCProterrat Message Enc [facility] Medical Group Family & Internal Medicine [address] [address] Elizabeth Arnold [place] [id number] [place] [address] Knee sublux/dislocation Social History Tobacco Use Types Packs/Day Years Used Date Smoking Tobacco: Never Smokeless Tobacco: Never Alcohol Use Standard Drinks/Week Comments Yes 0 (1 standard drink = 0.6 oz pur e alcohol) socially PHQ-2 Answer Date Recorded PHQ-2 Score - If the patient scores above 3, please move on to questions 3-9 0 04/21/2022 Comments No Sex and Gender Information Value Date Recorded Sex Assigned at Female 09/27/2024 2:16 PM TYPE MAPPER Legal Sex Female 6:54 PM CDT Gender Identity Female 02/22/2025 2:51 PM CDT Sexual Orientation Not on file 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 No / Unsure 08/29/2022 10:13 AM TYPE MAPPER documented as of this encounter Plan of Treatment Upcoming Encounters Date Type Department Care Team (Late st Contact Info) Description 08/14/2025 4:30 PM TYPE MAPPER [facility], [facility] [address] [place] [address] Kory Brown MD [facility]. [facility] [address] [place] [address] 08/15/2025 2:00 PM TYPE MAPPER Treatment [facility], [place] [address] [place] [address] None, ProviderMD 08/22/2025 2:00 PM TYPE MAPPER Treatment [facility], [place] [address] [place] [address] None, ProviderMD 08/29/2025 2:00 PM TYPE MAPPER Treatment [facility], [facility] [address] [place] [address] None, ProviderMD 09/05/2025 2:00 PM TYPE MAPPER Treatment [facility], [place] [address] [place] [address] None, ProviderMD 09/12/2025 2:00 PM TYPE MAPPER Treatment [facility], [place] [address] [place] [address] None, Provider, 09/19/2025 2:00 PM TYPE MAPPER Treatment [facility] at [facility], [facility] [address] [place] [address] None, ProviderMD 09/26/2025 2:00 PM TYPE MAPPER Treatment [facility] at [facility], [facility] [address] [place] [address] None, Provider, documented as of this encounter Visit Diagnoses Not on filedocumented in this encounter Additional Health Concerns Assessment Noted Time PHQ-9 Depression Total Score: 7 04/21/20 22 2:11 PM CDT documented as of this encounter Care Teams Wilton Weaver Relationship Specialty Start Date End Date Elizabeth Arnold MD PCP - General INTERNAL MEDICINE 04/22/21 12/17/22 Francois Dailey DO [address] [facility] [address] [place] [address] PCP - General FAMILY PRACTICE 02/21/23 10/29/23 Luann Valdovinos NP [address] [place] [address] PCP - General NURSE PRACTITIONER 10/30/23 Romaine Decker MD [facility]. [facility] [address] [place] [address] Consulting Physician CARDIOVASCULAR DISEASE 06/20/24 Baljinder Morejon MD [facility]. [facility] [address] [place] [address] Consulting Physician CLINICAL CARDIAC ELECTROPHYSIOLOGY 11/08/24 documented as of this encounter
--- OUTSIDE RECORDS SUMMARY | 2025-08-09 20:51 | XMS_ITS | Clinical Summary ---
Author Organization [facility] Address [facility] [place] [address] Care Team Providers Care Substation Superintendent Name Role Phone Luann Valdovinos NP Primary Care Provider [phone] Romaine Decker MD Unavailable [phone] Baljinder Morejon MD Unavailable Allergies Active Allergy Reactions Criticality Noted Date Comments Amitriptyline Other (see comment) Low 02/27/2021 Couldn't sleep Budesonide-Formoterol Fumarate Chest pressure,Other (see comment) Medium 08/08/2021 [place] burning in chest Ciprofloxacin Unknown 10/30/2023 Must avoid all of this drug class Cyclobenzaprine Unknown,Other (see comment) Low 11/07/2022 Weakness and did not like the way it made her feel Gabapentin Headache Low 08/22/2024 Levofloxacin Other (see comment) 04/10/2025 States she cannot have any fluoroquinolone medications Methocarbamol Other (see comment) Low 05/24/2024 Head was 'buzzing', Metronidazole Other (see comment) Low 05/09/2021 Facial gel ( caused burning sensation) Oxycodone Hives,Itching 04/11/2025 Propranolol Other (see comment) 12/25/2022 Dry mouth Montelukast Headache Low 05/28/2020 Tape Rash Low 05/28/2020 Ketorolac Tromethamine Rash Low 04/11/2025 Medications Fluticasone-Salmet jazmin 113-14 MCG/ACT AEROSOL POWDER, BREATH ACTIVATED Inhale 1 puff into the lungs 2 (two) times daily. 04/22/20 Active AUVI-Q 0.3 MG/0.3ML injection Inject 0.3 mLs (0.3 mg total) into the muscle as needed. 08/15/20 Active albuterol sulfate HFA 108 (90 Base) MCG/ACT inhalerIndications :Asthma, unspecified asthma severity, unspecified whether complicated, unspecified whether persistent (HHS/HCC) Inhale 2 puffs into the lungs every 6 (six) hours as needed. 56 g 1 03/18/20 Active Galcanezumab-gnlm (EMGALITY) 120 MG/ML Solution Auto-injector Inject 120 mg into the skin every 30 (thirty) days. 06/06/20 Active drospirenone-ethin yl estradiol (YOGI) 3-0.03 MG tablet TAKE 1 TABLET BY MOUTH DAILY. SKIP PLACEBO PILLS. 08/13/20 Active famotidine (PEPCID) 40 MG tablet Take 1 tablet (40 mg total) by mouth 2 (two) times daily. 09/09/19 Active cetirizine (ZYRTEC) 10 MG tablet Take 2 tablets (20 mg total) by mouth 2 (two) times daily. 09/09/19 Active Naltrexone HCl PowderIndications: Chronic generalized pain 4.5 mg by Does not apply route nightly. EMPTY STOMACH 4.05 g 3 10/21/19 Active Cromolyn Sodium (GASTROCROM) 100 MG/5ML ConcIndications:Ma st cell activation (HHS/HCC) Take 5-10 mLs by mouth 4 (four) times daily before meals and nightly. 240 mL 11 10/21/19 Active acetaminophen (TYLENOL) 325 MG tablet Take 2 tablets (650 mg total) by mouth every 6 (six) hours as needed. Active SPIRIVA RESPIMAT 1.25 MCG/ACT inhaler (SPIRIVA RESPIMAT) Inhale 2 puffs into the lungs daily. 02/11/20 Active botulinum toxin type A (BOTOX) 200 units injection Inject 200 Units into the muscle see administration instructions. 12 weeks Active hydroxychloroquine (PLAQUENIL) 200 MG tablet Take 2 tablets (400 mg total) by mouth every evening. 10/26/19 24 Active Ibuprofen 200 MG capsule Take 200 mg by mouth every 6 (six) hours as needed. Active tiZANidine (ZANAFLEX) 2 MG tablet Take 1 tablet (2 mg total) by mouth every 8 (eight) hours as needed. 04/28/20 24 Active Levomefolate Glucosamine (METHYL-FOLATE OR) A ctive Methylcobalamin (METHYL B-12 OR) Take by mouth daily. Active IVERMECTIN EX Ivermectin 1.2%, Niacinamide 2% Topical Gel 11/09/19 25 Active carbidopa-levodopa (SINEMET) 25-100 MG tablet Take 1 tablet by mouth 3 (three) times daily. 02/03/20 25 Active HUMIRA, 2 PEN, 40 MG/0.4ML pen-injector kit Inject 0.4 mLs (40 mg total) into the skin every 10 (ten) days. 03/01/20 25 Active DUPIXENT 300 MG/2ML injection (PEN) Inject 4 mLs (600 mg total) into the skin every 14 (fourteen) days. 03/09/20 25 Active HYDROcodone-acetam inophen (NORCO) 5-325 MG tabletIndications: Acute Pain < 3 Day Supply Take 1 tablet by mouth every 6 (six) hours as needed for Pain. Indications: Acute Pain < 3 Day Supply 10 tablet 04/11/20 25 Active ondansetron (ZOFRAN-ODT) 4 MG disintegrating tablet Take 1 tablet (4 mg total) by mouth every 8 (eight) hours as needed for Nausea. 15 tablet 04/11/20 25 Active dexAMETHasone (DECADRON) 6 MG Tab Take 1 tablet by mouth daily. 4 tablet 04/11/20 25 Active naloxone (NARCAN) 4 MG/0.1ML nasal spray 1 spray by Nasal route as needed for Opioid reversal. may repeat every 2 to 3 minutes in alternating nostrils until medical assistance becomes available 1 each 04/11/20 25 026 Active verapamil ER (VERELAN PM) 120 MG 24 hr capsule Take 1 capsule (120 mg total) by mouth nightly at bedtime. 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 Dyspnea 05/19/2022 Rosacea 02/04/2022 IBS (irritable bowel syndrome) 02/04/2022 Fracture of pelvis 02/04/2022 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 Deviated septum 02/04/2022 ADHD 02/04/2022 COVID-19 02/04/2022 Status post placement of implantable loop record er 11/11/2021 Overview (11/11/2021): CHRISTAL TURK IMPLANTED 09/05/21 FOR PALP Dyspepsia 03/01/2021 Overview (03/01/2021): Added automatically from request for surgery [id number] Fatigue, unspecified type 01/09/2021 Polyarthralgia 01/09/2021 Folic acid deficiency 01/09/2021 Vitamin D deficiency 01/09/2021 Multiple food allergies 01/09/2021 Chronic diarrhea 01/09/2021 Stomach cramps, generalized 01/09/2021 Abdominal bloating 01/09/2021 Hypermobile joints 01/09/2021 Asthma 01/07/2021 Dizziness 05/28/2020 Palpitations 05/28/2020 Overview (11/11/2021): CHRISTAL TURK IMPLANTED 09/05/21 FOR PALP Episodic lightheadedness 05/28/2020 History of migraine headaches 05/28/2020 Uterine leiomyoma, unspecified location 05/28/20 20 Lumbar herniated disc 05/28/2020 Influenza vaccination declined by patient 2019 Seasonal allergies 05/28/2020 Environmental allergies 05/28/2020 Resolved Problems Problem Noted Date Diagnosed Date Resolved Date Encounter for medical examin atpending [facility] to [facility] to establish care 05/28/2020 06/04/2020 Encounters Date Type Department Care Team Description 08/01/2025 2:00 PM HYDROELECTRIC COMPONENT MACHINIST Treatment [facility], [facility] [address] [place] [address] None, Provider, Infusion Therapy 08/01/2025 Travel 07/25/2025 2:00 PM HYDROELECTRIC COMPONENT MACHINIST Treatment [facility], [facility] [address] [place] [address] None, Provider, Infusion Therapy 07/25/2025 Travel 07/18/2025 2:30 PM HYDROELECTRIC COMPONENT MACHINIST Treatment [facility], [place] [address] [place] [address] Non-Staff, Provider 07/18/2025 Travel 07/11/2025 2:00 PM HYDROELECTRIC COMPONENT MACHINIST Treatment [facility], [place] [address] [place] [address] Kory Brown MD 07/11/2025 Travel 07/10/2025 4:35 PM HYDROELECTRIC COMPONENT MACHINIST Allied Health/Nurse Visit [facility], [place] [address] [place] [address] Kory Brown MD Remote Device Check 07/05/2025 Abstract [facility], [facility] [address] [place] [address] Arelis Abraham NP-C 07/04/2025 2:00 PM HYDROELECTRIC COMPONENT MACHINIST Treatment [facility], [facility] [address] [place] [address] None, ProviderMD 07/04/2025 Travel 07/03/2025 12:45 PM HYDROELECTRIC COMPONENT MACHINIST Office Visit [facility] [address] [place] [phone] Luann Valdovinos, Lindy Santana, PT Generalized Weakness 07/03/2025 Orders Only [facility], [facility] [address] [place] [address] Non-Staff, Provider 07/03/2025 Therapy Plan [facility] [place] [address] Non-Staff, Provider 07/03/2025 Travel 06/30/2025 MyChart Message Enc [facility], [facility] [address] [place] [address] Mychart, [facility] Provider Symptom Reviewed 06/28/2025 MyChart Message Enc [facility], [facility] [address] [place] [address] Mychart, [facility] Provider Symptoms reviewed 06/27/2025 2:00 PM HYDROELECTRIC COMPONENT MACHINIST Treatment [facility], [place] [address] [place] [address] None, Provider, 06/26/2025 2:15 PM HYDROELECTRIC COMPONENT MACHINIST Office Visit [facility] Critical access hospital[address] [place] [phone] Luann Valdovinos, Lindy Santana, PT Generalized Weakness 06/26/2025 Travel 06/23/2025 Scan HEALTH INFO SRVCS Scanned, [facility] 06/21/2025 12:45 PM CDT Office Visit [facility] [address] [place] [address] [place], LuannSOPHIA Bellamy Meaghan B, PT Generalized Weakness 06/21/2025 Travel 06/20/2025 2:00 PM CDT Treatment [facility], [facility] [address] [place] [address] None, Provider, 06/20/2025 MyChart Message Enc [facility], [facility] [address] [place] [address] Romaine Decker MD Records 06/20/2025 Travel 06/19/2025 12:45 PM CDT Office Visit [facility] Physical [place] [address] [place] [phone] Luann Valdovinos NP Weedon, Meaghan B, PT Generalized Weakness 06/19/2025 Travel 06/19/2025 MyChart Message Enc [facility], [facility] [address] [place] [address] [facility], [facility] Provider Symptoms reviewed 06/16/2025 MyChart Message Enc [facility], [facility] [address] [place] [address] Mychart, [facility] Provider Symptom reviewed 06/15/2025 MyChart Message Enc [facility], [facility] [address] [place] [address] Mychart, [facility] Provider Symptom Reviewed 06/13/2025 2:00 PM CDT Treatment [facility], [facility] [address] [place] [address] Romaine Decker MD Infusion Therapy 06/12/2025 2:30 PM CDT Office Visit [facility] Physical [place] [address] [phone] Lindy Bhatt, PT Generalized Weakness 06/12/2025 Travel 06/06/2025 2:00 PM CDT Treatment [facility], [facility] [address] [place] [address] Medardo Rosenberg MD 06/06/2025 Travel 06/05/2025 4:35 PM CDT Allied Health/Nurse Visit [facility], [facility] [address] [place] [address] Kory Brown MD Remote Device Check 06/05/2025 1:15 PM CDT Office Visit [facility] Physical Therapy Critical access hospital[address] [address] Luann Valdovinos NP Weedon, Meaghan B, PT Generalized Weakness 06/05/2025 Travel 05/31/2025 1:30 PM CDT Office Visit [facility] Physical [place] [address] [phone] Lindy Bhatt, PT Generalized Weakness 05/31/2025 Travel 05/30/2025 2:00 PM CDT Treatment [facility], [facility] [address] [place] [address] Kory Brown MD 05/29/2025 1:45 PM CDT Office Visit [facility] Physical [place] [address] [phone] Luann Valdovinos NP Weedon, Meaghan B, PT Generalized Weakness 05/29/2025 Travel 05/26/2025 Telephone [facility] Therapy [address] [place] [address] [address] [place] [phone] Susan Crocker, SUPERVISOR INDUSTRIAL GARMENT Called To Cancel Office Appt. 05/23/2025 2:00 PM CDT Treatment [facility] [place] [address] [place] [address] Medardo Rosenberg MD Infusion Therapy 05/23/2025 Travel 05/22/2025 1:00 PM CDT Office Visit [facility] Therapy [address] [place] [phone] Luann Valdovinos, Lindy Santana, PT Generalized Weakness 05/22/2025 Travel 05/17/2025 1:30 PM CDT Office Visit [facility] Therapy [address] [place] [phone] Luann Valdovinos NP Weedon, Meaghan B, PT Generalized Weakness 05/16/2025 2:00 PM CDT Treatment [facility], [address] [address] Kory Brown MD 05/16/2025 Travel 05/15/2025 1:30 PM CDT Office Visit [facility] Therapy [address] [place] [phone] Luann Valdovinos, Lindy Santana, PT Generalized Weakness 05/15/2025 Travel 05/10/2025 12:45 PM CDT Office Visit [facility] Therapy [address] [place] [phone] Luann Valdovinos, BUSPERSON Weedon, Lindy B, PT Generalized Weakness from Last 3 Months Immunizations Immunization Administration Dates Next Due Flucelvax 2 YRS+ (Multi-Dose Vial) 08/24/2020 Influenza Adult (Generic) 05/28/2020 Family History Medical History Relation Comments Cancer Father skin Breast Cancer Maternal Aunt 1 Breast Cancer Maternal Aunt 2 Breast Cancer Maternal Aunt 3 Cancer Maternal Grandfather bladder Breast Cancer Maternal Grandmother had it 2 ti mes and 2 different types Fibromyalgia Mother Colon Cancer Paternal Aunt rectal cancer Cancer Paternal Grandfather bladder Relation Status Comments Father Alive Maternal Aunt 1 Maternal Aunt 2 Alive Maternal Aunt 3 Alive Maternal Grandfather Maternal Grandmother Mother Alive Paternal Aunt Paternal Grandfather Paternal Grandmother Social History Tobacco Use Types Packs/Day Years Used Date Smoking Tobacco: Never Smokeless Tobacco: Never Tobacco Cessation:Counseling Given: No Alcohol Use Standard Drinks/Week Comments Yes 0 (1 standard drink = 0.6 oz pur e alcohol) rare, once or twice a year PHQ-2 Answer Date Recorded Patient Health Questionnaire-2 Score 0 04/05/2025 Comments No Sex and Gender Information Value Date Recorded Sex Assigned at Female 09/27/2024 2:16 PM HYDROELECTRIC COMPONENT MACHINIST Legal Sex Female 6:54 PM CDT Gender Identity Female 02/22/2025 2:51 PM CDT Sexual Orientation Not on file 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 on file Not on file Not on eileen e Last Filed Vital Signs Vital Sign Reading Time Taken Comments Blood Pressure 110/71 08/01/2025 2:15 PM HYDROELECTRIC COMPONENT MACHINIST Pulse 78 08/01/2025 2:15 PM HYDROELECTRIC COMPONENT MACHINIST Temperature 36.6 C (97.8 F) 08/01/2025 2:15 PM HYDROELECTRIC COMPONENT MACHINIST Respiratory Rate 20 07/25/2025 4:32 PM HYDROELECTRIC COMPONENT MACHINIST Oxygen Saturation 100% 08/01/2025 2:15 PM HYDROELECTRIC COMPONENT MACHINIST Inhaled Oxygen Concentration - - Weight 68 kg (150 lb) 04/11/2025 6:35 AM CDT Height 160 cm (5' 3) 04/11/2025 6:35 AM CDT Body Mass Index 26.57 04/11/2025 6:35 AM CDT Plan of Treatment Upcoming Encounters Date Type Department Care Team (Late st Contact Info) Description 08/14/2025 4:30 PM HYDROELECTRIC COMPONENT MACHINIST Allied Health/Nurse Visit [facility], [place] [address] [place] [address] Kory Brown MD [facility] [place] [address] [place] [address] 08/15/2025 2:00 PM HYDROELECTRIC COMPONENT MACHINIST Treatment [facility], [facility] [address] [place] [address] None, Provider, 08/22/2025 2:00 PM HYDROELECTRIC COMPONENT MACHINIST Treatment [facility], [facility] [address] [place] [address] None, Provider, 08/29/2025 2:00 PM HYDROELECTRIC COMPONENT MACHINIST Treatment [facility], [facility] [address] [place] [address] None, Provider, 09/05/2025 2:00 PM HYDROELECTRIC COMPONENT MACHINIST Treatment [facility], [facility] [address] [place] [address] None, Provider, 09/12/2025 2:00 PM HYDROELECTRIC COMPONENT MACHINIST Treatment [facility], [facility] [address] [place] [address] None, Provider, 09/19/2025 2:00 PM HYDROELECTRIC COMPONENT MACHINIST Treatment [facility], [facility] [address] [place] [address] None, Provider, 09/26/2025 2:00 PM HYDROELECTRIC COMPONENT MACHINIST Treatment [facility], [facility] [address] [place] [address] None, MD [facility] Health Maintenance Due Date Last Done Comments Cervical Cancer Screening Pa p Smear (Age 30 to 64) Every 3 Years 1987 DTaP, Tdap and Td Vaccines ( 1 - Tdap) 2006 Hepatitis B Vaccines (1 of 3 - 19+ 3-dose series) 2006 Pneumococcal Vaccine: Pediatrics (0 to 5 Years) and At-Risk Patients (6 to 49 Years) (1 of 2 - PCV) 2006 HPV Vaccines (1 - 3-dose SCD M series) 2014 COVID-19 Vaccine ( - 2024-2 6 season) 2025 Influenza Adult (#1) 2025 08/24/2020, 05/28/2020 Cervical Cancer Screening Pa p with HPV Testing (Age 30 to 64) Every 5 Years 10/05/2025 10/05/2020 Cervical Cancer Screening wi th HPV 10/05/2025 Annual Physical 11/16/2025 11/16/2024, 10/30/2023 Hepatitis C Completed 11/26/2023, 05/27/2021 PHQ-2 (Physician [place]) Completed 04/05/2025 Hepatitis A Vaccines Aged Out No long er eligible based on patient's age to complete this topic Meningococcal B Vaccine Aged Out No l onger eligible based on patient's age to complete this topic Meningococcal Vaccine Aged Out No veda lucho eligible based on patient's age to complete this topic RSV Immunizations Under 20 Months Aged Out No longer eligible b ased on patient's age to complete this topic Medical Devices Implanted Type Area Repairer Kiln Car Device Identifier Shelf Expiration Date Model / Serial / Lot Implantable Loop Recorder-2021 Implanted:Qty: 1 on 09/05/2021 by Baljinder Morejon MD Implantable Loop Recorder Left: Chest Wall [employer] CARDIAC RHYTHM AND HEART FAILURE - DIV M [id number] / [id number] / Procedures Procedure Name Priority Date/Time Associated Diagnosis Comments HEPATITIS C ANTIBODY Routine 11/26/2023 9:25 AM CDT Need for hepatitis C screening test OUTSIDE CYTOPATH CERV/VAG INTERPRET (PAP) 10/05/2020 from Last 3 Months or Most Recently Relevant to Health Maintenance Results * HEPATITIS C ANTIBODY (11/26/2023 9:25 AM CDT) HEPATITIS C AB NON-REACTI VE NON-REACT GIULIA 11/26/2023 7:03 PM CDT [facility] Comment: ANTIBODIES TO HCV NOT DETECTED. DOES NOT EXCLUDE THE POSSIBILITY OF EXPOSURE TO HCV. 11/26/2023 9:25 AM CDT us Luann Valdovinos [employer]PERSON LABORATORY Final Res ult [facility] [address] [place] [address], [place] [phone] * PAP SMEAR WITH HPV (10/05/2020) 10/05/2020 us [facility] Scanned SCANNING Final Resu lt from Last 3 Months or Most Recently Relevant to Health Maintenance Insurance [facility] Care Teams Substation Superintendent Relationship Specialty Start Date End Date Luann Valdovinos NP [address] [place] [address] PCP - General NURSE PRACTITIONER 10/30/23 Romaine Decker MD Three [facility]. [address] [address] Consulting Physician CARDIOVASCULAR DISEASE 06/20/24 Baljinder Morejon MD Three [facility]. [address] 626[address] Consulting Physician CLINICAL CARDIAC ELECTROPHYSIOLOGY 11/08/24
--- OUTSIDE RECORDS SUMMARY | 2025-08-09 20:51 | XMS_ITS | Encounter Summary ---
Author Organization [facility] Address [facility] [place] [address] Care Team Providers Care Photo Cartographer Name Role Phone Luann Valdovinos NP Primary Care Provider [phone] Romaine Decker MD Unavailable [phone] Baljinder Morejon MD Unavailable Encounter Details Date Type Department Care Team (Late Contact Info) Description 11/01/2024 Abstract [facility], [address] [id number] Prabha Ferreira MA Social History Tobacco Use Types Packs/Day Years Used Date Smoking Tobacco: Never Smokeless Tobacco: Never Alcohol Use Standard Drinks/Week Comments Yes 0 (1 standard drink = 0.6 oz pur e alcohol) socially PHQ-2 Answer Date Recorded Patient Health Questionnaire-2 Score 0 09/13/2024 Comments No Sex and Gender Information Value Date Recorded Sex Assigned at Female 09/27/2024 2:16 PM SUPERVISOR HARD CANDY Legal Sex Female 6:54 PM CDT Gender Identity Female 02/22/2025 2:51 PM CDT Sexual Orientation Not on file 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 [facility] [address] [place] [address] 08/15/2025 2:00 PM SUPERVISOR HARD CANDY Treatment [facility], [facility] [address] [place] [address] None, ProviderMD 08/22/2025 2:00 PM SUPERVISOR HARD CANDY Treatment [facility], [facility] [address] [place] [address] None, ProviderMD 08/29/2025 2:00 PM SUPERVISOR HARD CANDY Treatment [facility], [facility] [address] [place] [address] None, ProviderMD 09/05/2025 2:00 PM SUPERVISOR HARD CANDY Treatment [facility], [facility] [address] [place] [address] None, ProviderMD 09/12/2025 2:00 PM SUPERVISOR HARD CANDY Treatment [facility], [place] [address] [place] [address] None, ProviderMD 09/19/2025 2:00 PM SUPERVISOR HARD CANDY Treatment [facility] at [facility], [facility] [address] [place] [address] None, ProviderMD 09/26/2025 2:00 PM SUPERVISOR HARD CANDY Treatment [facility], [facility] [address] [place] [address] None, ProviderMD documented as of this encounter Procedures Procedure Name Priority Date/Time Associated Diagnosis Comments TSH (OUTSIDE LAB) Routine 10/28/2024 CBC (OUTSIDE LAB) Routine 10/28/2024 FREE T3 Routine 10/28/2024 COMPREHENSIVE METABOLIC PANEL Routine 10/28/2024 C-REACTIVE PROTEIN Routine 10/28/2024 THYROXINE, FREE (FT4) Routine 10/28/2024 documented in this encounter Results * CBC (OUTSIDE LAB) (10/28/2024) Pathologist [facility] WBC 6.8 HGB 14.5 HCT 44.2 PLT 305 10/28/2024 Default History Genericprovider LAB-OUTSIDE/ABST RACTED Final Result * COMPREHENSIVE METABOLIC PANEL (10/28/2024) Pathologist [facility] SODIUM S/P/B 139 POTASSIUM S/P/B 4.3 CO2 25 CHLORIDE S/P/B 102 GLUCOSE 84 mg/dL CALCIUM S/P/B 9.8 BUN 8 CREATININE S/P/B 0.97 0.5 - 1.0 GFR ESTIMATE 77 ALKALINE PHOSPHATASE S/P/B 48 ALT 15 AST 19 BILIRUBIN TOTAL S/P/B 0.5 ALBUMIN S/P/B 4.3 3.5 - 5.0 TOTAL PROTEIN S/P/B 7.3 10/28/2024 us Default History Genericprovider LABORATORY Edited Result - Final * C-REACTIVE PROTEIN (10/28/2024) Pathologist [facility] CRP 0.44 10/28/2024 us Default History Genericprovider LABORATORY Edited Result - Final * TSH (OUTSIDE LAB) (10/28/2024) TSH 3.17 10/28/2024 us Default History Genericprovider LAB-OUTSIDE/ABST RACTED Final Result * THYROXINE, FREE (FT4) (10/28/2024) FREE T4 1.35 10/28/2024 us Default History Genericprovider LABORATORY Final Result * FREE T3 (10/28/2024) FREE T3 3.98 10/28/2024 us Default History Genericprovider LABORATORY Edited Result - Final documented in this encounter Visit Diagnoses Not on filedocumented in this encounter Additional Health Concerns Assessment Noted Time PHQ-9 Depression Total Score: 8 02/19/20 24 9:53 AM CDT documented as of this encounter Care Teams Photo Cartographer Relationship Specialty Start Date End Date Luann Valdovinos NP [address] [place] [address] PCP - General NURSE PRACTITIONER 10/30/23 Romaine Decker MD [address] [place] [address] [place] [address] Consulting Physician CARDIOVASCULAR DISEASE 06/20/24 Baljinder Morejon MD [address] [place] [place] [address] Consulting Physician CLINICAL CARDIAC ELECTROPHYSIOLOGY 11/08/24 documented as of this encounter
--- OUTSIDE RECORDS SUMMARY | 2025-08-09 20:51 | XMS_ITS | Encounter Summary ---
Author Organization [facility] Address [facility] [place] [address] Care Team Providers Care Motor Block Mechanic Name Role Phone Luann Valdovinos NP Primary Care Provider [phone] Romaine Decker MD Unavailable [phone] Baljinder Morejon MD Unavailable Encounter Details Date Type Department Care Team (Late Contact Info) Description 03/06/2025 MyChart Message Enc [facility] - [place] [address] [facility] [address] [place] [phone] Luann Valdovinos, OCULAR CARE AIDE [address] [place], [place] [address] Wanted to let you know Social History Tobacco Use Types Packs/Day Years Used Date Smoking Tobacco: Never Smokeless Tobacco: Never Alcohol Use Standard Drinks/Week Comments Yes 0 (1 standard drink = 0.6 oz pur e alcohol) socially PHQ-2 Answer Date Recorded Patient Health Questionnaire-2 Score 0 09/13/2024 Comments No Sex and Gender Information Value Date Recorded Sex Assigned at Female 09/27/2024 2:16 PM COMMISSIONED SALES ASSOCIATE Legal Sex Female 6:54 PM CDT Gender Identity Female 02/22/2025 2:51 PM CDT Sexual Orientation Not on file 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 [facility] [address] [place] [address] 08/15/2025 2:00 PM COMMISSIONED SALES ASSOCIATE Treatment [facility], [facility] [address] [place] [address] None, Provider, 08/22/2025 2:00 PM COMMISSIONED SALES ASSOCIATE Treatment [facility], [facility] [address] [place] [address] None, Provider, 08/29/2025 2:00 PM COMMISSIONED SALES ASSOCIATE Treatment [facility] at [facility], [facility] [address] [place] [address] None, Provider, 09/05/2025 2:00 PM COMMISSIONED SALES ASSOCIATE Treatment [facility], [facility] [address] [place] [address] None, Provider, 09/12/2025 2:00 PM COMMISSIONED SALES ASSOCIATE Treatment [facility], [facility] [address] [place] [address] None, Provider, 09/19/2025 2:00 PM COMMISSIONED SALES ASSOCIATE Treatment [facility], [facility] [address] [place] [address] None, Provider, 09/26/2025 2:00 PM COMMISSIONED SALES ASSOCIATE Treatment [facility], [facility] [address] [place] [address] None, Provider, documented as of this encounter Visit Diagnoses Not on filedocumented in this encounter Additional Health Concerns Assessment Noted Time PHQ-9 Depression Total Score: 8 02/19/20 24 9:53 AM CDT documented as of this encounter Care Teams Motor Block Mechanic Relationship Specialty Start Date End Date Luann Valdovinos NP [address] [place] [address] PCP - General NURSE PRACTITIONER 10/30/23 Romaine Decker MD [address] [facility]. [facility] [address] [place] [address] Consulting Physician CARDIOVASCULAR DISEASE 06/20/24 Baljinder Morejon MD [address] [facility]. [facility] [address] [place] [address] Consulting Physician CLINICAL CARDIAC ELECTROPHYSIOLOGY 11/08/24 documented as of this encounter
--- OUTSIDE RECORDS SUMMARY | 2025-08-09 20:51 | XMS_ITS | Clinical Summary ---
Author Organization [facility] Address [address] [place] [address] Care Team Providers Care Style Advisor Name Role Phone Luann Valdovinos APRN-MUD WORKER Primary Care Provi murtaza Pooja Moe MD Unavailable [phone] Source Comments [facility],non-owned Affiliates and Associated Physician Practices is amultiple site organization consisting of ambulatory clinics and hospital sitesin [place], [place], [place] and [place]. This disclosure is being madepursuant to the Care Everywhere program and may not contain all information available regarding this patient. Last updated 18.[facility] Allergies Active Allergy Reactions Criticality Noted Date Comments Amitriptyline Other Low 02/27/2021 Couldn't sleep Inmtynl-Iwkjmcknaug-Wtfwk terol Other Medium 08/08/2021 [place] burning in chest Budesonide-Formoterol Fumarate Other,Palpitations Medium 08/08/2021 [place] burning in chest Ciprofloxacin Unknown 10/30/2023 Cyclobenzaprine Other,Unknown Low 11/07/2022 Weakness and did not like the way it made her feel Weakness and did not like the way it made her feel Weakness and did not like the way it made her feel Gabapentin Headache Low 08/22/2024 Methocarbamol Other Low 05/24/2024 Head was 'buzzing', Metronidazole Other Low 05/09/2021 Facial gel ( caused burning sensation) Facial gel ( caused burning sensation) Montelukast Headache Medium 05/28/2020 Oxycodone Urticaria,Itching Medium 04/11/2025 Propranolol Other Low 12/25/2022 Dry mouth Medications * Be aware that medications may not be up to date on this document. Alwaysverify current medications with the patient. albuterol HFA (PROVENTIL; VENTOLIN; PROAIR) 108 (90 Base) MCG/ACT inhaler Inhale 2 (two) puffs by mouth as needed 01/18/20 21 Active EPINEPHrine (EPIPEN) 0.3 MG/0.3ML auto-injector pen as directed 08/15/20 21 Active fluticasone-romina meterol 113-14 MCG/ACT inhaler 2 times daily 04/22/20 21 Active Naltrexone HCl Use 4.5 mg at bedtime 04/21/20 22 Active Cromolyn Sodium 100 MG/5ML Take 5-10 mL by mouth 4 times daily 10/21/19 23 Active traMADol (Ultram) 50 MG tablet Take 1 (one) tablet by mouth 3 times daily as needed 10/16/19 23 Active drospirenone-et hinyl estradiol (Candi) 3-0.03 MG tablet once daily 11/06/19 23 Active onabotulinumtox in A (Botox) 200 units injection by Injection route as directed Active acetaminophen (Tylenol) 325 MG tablet Take 2 (two) tablets by mouth every 6 hours as needed Active Tiotropium [employer] Monohydrate (Spiriva Respimat) 1.25 MCG/ACT AERS Inhale 2 puffs by mouth once daily 02/11/20 23 Active Humira 40 MG/0.8ML injection every 7 days 04/14/20 23 Active famotidine (Pepcid) 40 MG tablet 1 (one) tablet 2 times daily 06/11/20 23 Active sodium chloride 0.9 % nebulizer solution once daily as needed 07/14/20 23 Active hydroxychloroqu ine (Plaquenil) 200 MG tablet Take 2 (two) tablets by mouth every evening 12/03/19 24 Active tiZANidine (Zanaflex) 2 MG tablet Take 1 (one) tablet by mouth every 8 hours as needed 04/28/20 24 Active IVERMECTIN EX as directed Ivermectin 1.2% Niacinamide 2 % compound gel 11/09/19 25 Active carbidopa-levod opa (Sinemet) 25-100 MG tablet Take 1 (one) tablet by mouth 3 times daily 270 tablet 3 02/03/20 25 Active Dupixent 300 MG/2ML prefilled pen Inject 4 mL subcutaneously once 03/09/20 25 Active levocetirizine (Xyzal) 5 MG tablet Take 2 (two) tablets by mouth 2 times daily 04/28/20 25 Active ivabradine (Corlanor) 5 MG tablet Take 1 (one) tablet by mouth 2 times daily with morning and evening meal 06/26/20 25 Active Atogepant (Qulipta) 60 MG TABSIndications :Chronic migraine without aura without status migrainosus, not intractable Take 1 (one) tablet by mouth once daily 90 tablet 3 07/26/20 25 Active methylphenidate (Ritalin) 10 MG tabletIndicatio ns:Small fiber neuropathy,Othe r fatigue Take 1 (one) tablet by mouth Every morning and lunchtime 60 tablet 08/08/20 25 Active verapamil CR (Isoptin-SR) 120 MG tablet Take 1 (one) tablet by mouth once daily 12/22/19 25 025 Discontin ued([facility]) Atogepant (Qulipta) 60 MG TABSIndications :Chronic migraine without aura without status migrainosus, not intractable Take 1 (one) tablet by mouth once daily 90 tablet 05/03/20 25 025 Discontin ued([facility]) Hospital, Clinic, or Other Facility Administered Medication Ordered Dose Route Frequency Start Date End Date Status onabotulinumtoxin A (Botox) injection 200 UnitsIndications:Migraine 200 Units IM ONCE 07/26/2025 07/26/2025 Ended Active Problems Problem Noted Date Diagnosed Date Chronic migraine without aur a, with intractable migraine, so stated, with status migrainosus 06/16/2023 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 ADHD 02/04/2022 COVID-19 02/04/2022 IBS (irritable bowel syndrome) 02/04/2022 Pelvic fracture 02/04/2022 Deviated septum 02/04/2022 Rosacea 02/04/2022 Autism spectrum disorder Overview (08/22/2024): ADD 'combined type' ALBERT (generalized anxiety disorder) Major depressive disorder, recurrent, moderate Major depressive disorder, recurrent, moderate Encounters Date Type Department Care Team Description 08/08/2025 2:00 PM TOP PRECIPITATOR OPERATOR HELPER Office Visit [facility] [address] [place] [address] Pooja Moe MD Chronic migraine without aura without status migrainosus, not intractable (Primary Dx); Cramps, extremity; POTS (postural orthostatic tachycardia syndrome); EDS (Maryam-Danlos syndrome) (HCC); Bilateral sciatica; Small fiber neuropathy; Other fatigue 08/02/2025 Refill [facility] [address] [place] [address] Candy Christensen, TURPENTINE DISTILLER-MUD WORKER Refill Request 07/26/2025 10:15 AM TOP PRECIPITATOR OPERATOR HELPER Procedure visit [facility] [address] [place] [address] Candy Christensen, TURPENTINE DISTILLER-MUD WORKER Chronic migraine without aura without status migrainosus, not intractable from Last 3 Months Family History Medical History Relation Name Comments Other Brother Hear problems,A ortic root aneurysm, Other Father Bladder CA,Skin CA,Heart stents,Heart problems, Cardiac Ablation,Hernia surgeries,Aortic root aneurysm, Other Mother Fibromyalgia, Other Sister EDS,Epilepsy,Mi graines,Hysterectomy,Heart problems,Fibromyalgia,[place] Relation Name Status Comments Brother Alive Father Alive Mother Alive Sister Alive Social History Tobacco Use Types Packs/Day Years Used Date Smoking Tobacco: Never Smokeless Tobacco: Never Tobacco Cessation:Counseling Given: Not Answered Alcohol Use Standard Drinks/Week Comments Yes 0 (1 standard drink = 0.6 oz pur e alcohol) rarely PHQ-2 Answer Date Recorded Patient Health Questionnaire-2 Score 0 12/26/2024 Comments No Sex and Gender Information Value Date Recorded Sex Assigned at Not on file Legal Sex Female 9:35 AM TOP PRECIPITATOR OPERATOR HELPER Gender Identity Not on file Sexual Orientation Not on file 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 Not on file Not on file Last Filed Vital Signs Vital Sign Reading Time Taken Comments Blood Pressure 115/66 08/08/2025 2:10 PM TOP PRECIPITATOR OPERATOR HELPER Pulse 71 08/08/2025 2:10 PM TOP PRECIPITATOR OPERATOR HELPER Temperature - - Respiratory Rate - - Oxygen Saturation - - Inhaled Oxygen Concentration - - Weight 65.8 kg (145 lb) 08/08/2025 2:10 PM TOP PRECIPITATOR OPERATOR HELPER Height 160 cm (5' 3) 08/08/2025 2:10 PM TOP PRECIPITATOR OPERATOR HELPER Body Mass Index 25.69 08/08/2025 2:10 PM TOP PRECIPITATOR OPERATOR HELPER Plan of Treatment Upcoming Encounters Date Type Department Care Team (Late st Contact Info) Description 10/18/2025 9:15 AM TOP PRECIPITATOR OPERATOR HELPER Procedure visit [facility] [address] [place] [address] Candy Christensen, TURPENTINE DISTILLER-MUD WORKER [address] [place] [id number] 02/07/2026 10:00 AM CDT Office Visit [facility] [address] [place] [address] Candy Christensen, TURPENTINE DISTILLER-MUD WORKER [address] [place] [address] Health Maintenance Due Date Last Done Comments HIV SCREENING 2002 DTAP/TDAP/TD VACCINES (1 - Tdap) 2006 HEPATITIS B VACCINE (1 of 3 - 19+ 3-dose series) 2006 PAP SMEAR 02/11/2008 HPV VACCINE (1 - 3-dose SCDM series) 2014 COVID-19 VACCINE ( - 2024-2 6 season) 2025 INFLUENZA VACCINE (#1) 2025 , 05/28/2020 ZOSTER VACCINE (1 of 2) 2037 HEPATITIS C SCREENING Completed 11/26/2023 DEPRESSION SCREENING Completed 12/26/2024 HIB VACCINE Aged Out No longer eligi ble based on patient's age to complete this topic MENINGOCOCCAL (Group B) VACCINE SHARED DECISION-MAKING Aged Out No longer eligible based on patient's age to complete this topic MENINGOCOCCAL GROUPS A/C/Y/W VACCINE Aged Out No longer eligible b ased on patient's age to complete this topic PNEUMOCOCCAL VACCINE Aged Out No long er eligible based on patient's age to complete this topic Insurance ANTHEM Care Teams Style Advisor Relationship Specialty Start Date End Date Luann Valdovinos, MARLON-MUD WORKER [address] [place] [address] PCP - General Nurse Practitioner 12/07/23 Pooja Moe MD [address] [facility] [address] [place], [place] [id number] Neurology 02/22/24
--- OUTSIDE RECORDS SUMMARY | 2025-08-09 20:51 | XMS_ITS | Encounter Summary ---
Author Organization [facility] Address [facility] [place] [address] Care Team Providers Care Social Professionals Name Role Phone Luann Valdovinos NP Primary Care Provider [phone] Romaine Decker MD Unavailable [phone] Baljinder Morejon MD Unavailable Encounter Details Date Type Department Care Team (Late st Contact Info) Description 02/19/2024 PureCarst Message Enc [facility] Family Medicine - [place] [address] [facility] [address] [place] [phone] Luann Valdovinos, SOPHIA [address] [place], [place] [id number] referral to psychology Social History Tobacco Use Types Packs/Day Years Used Date Smoking Tobacco: Never Smokeless Tobacco: Never Alcohol Use Standard Drinks/Week Comments Yes 0 (1 standard drink = 0.6 oz pur e alcohol) socially PHQ-2 Answer Date Recorded Patient Health Questionnaire-2 Score 2 02/19/2024 Comments No Sex and Gender Information Value Date Recorded Sex Assigned at Female 09/27/2024 2:16 PM HOSPITAL TECHNICIAN Legal Sex Female 6:54 PM CDT Gender Identity Female 02/22/2025 2:51 PM CDT Sexual Orientation Not on file 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 Question Answer Date of Assessment Author Status Little interest or pleasure in doing things Several days 02/19/2024 9:53 AM Carrol Echavarria MA Acti ve Feeling down, depressed, or hopeless Several days 02/19/2024 9:53 AM Carrol Echavarria MA Active Patient Health Questionnaire-2 Score 2 02/19/2024 9:53 AM Carrol Echavarria M A Active * Question Answer Date of Assessment Author Status Trouble falling or staying asleep, or sleeping too much Several days 02/19/2024 9:53 AM Carrol Echavarria MA Active Feeling tired or having little energy Several days 02/19/2024 9:53 AM Carrol Echavarria MA Active Poor appetite or overeating Several days 02/19/2024 9:53 AM Carrol Echavarria MA Active Feeling bad about yourself - or that you are a failure or have let yourself or your family down More than half the days 02/19/2024 9:53 AM Carrol Echavarria MA Active Trouble concentrating on things, such as reading the newspaper or watching television Several days 02/19/2024 9:53 AM Carrol Echavarria MA Active Moving or speaking so slowly that other people could have noticed? Or the opposite - being so fidgety or restless that you have been moving around a lot more than usual. Not at all 02/19/2024 9:53 AM Carrol Echavarria MA Active Thoughts that you would be better off or hurting yourself in some way Not at all 02/19/2024 9:53 AM Carrol Echavarria MA Active Patient Health Questionnaire-9 Score 8 02/19/2024 9:53 AM Carrol Echavarria MA Active * If you checked off any problems on this questionnaire so far, Question Answer Date of Assessment Author Status How difficult have these problems made it for you to do your work, take care of things at home, or get along with other people? Very difficult 02/19/2024 9:53 AM Carrol Echavarria MA Active * Over the last 2 weeks, how often have you been bothered by any of the following problems? Question Answer Date of Assessment Author Status Feeling nervous, anxious, or on edge 1 02/19/2024 9:53 AM CDT Carrol Espitia MA Acti ve Not being able to stop or control worrying 2 02/19/2024 9:53 AM CDT Carrol Espitia MA Act thomas Worrying too much about different things 2 02/19/2024 9:53 AM CDT Carrol Espitia MA Act thomas Trouble relaxing 2 02/19/2024 9:53 AM CDT Carrol Espitia MA Active Being so restless that it is hard to sit still 0 02/19/2024 9:53 AM CDT Carrol Espitia MA Active Becoming easily annoyed or irritable 2 02/19/2024 9:53 AM CDT Carrol Espitia MA Acti ve Feeling afraid as if something awful might happen 2 02/19/2024 9:53 AM CDT Carrol Espitia MA Acti ve ALBERT-7 Total Score 11 02/19/2024 9:53 AM CDT Carrol Espitia MA Active documented as of this encounter Plan of Treatment Upcoming Encounters Date Type Department Care Team (Late st Contact Info) Description 08/14/2025 4:30 PM HOSPITAL TECHNICIAN [facility], [facility] [address] [place] [address] Kory Brown MD [facility]. [facility] [address] [place] [address] 08/15/2025 2:00 PM HOSPITAL TECHNICIAN Treatment [facility] at [facility], [facility] [address] [place] [address] Medardo Rosenberg MD 08/22/2025 2:00 PM HOSPITAL TECHNICIAN Treatment [facility] at [facility], [facility] [address] [place] [address] Medardo Rosenberg MD 08/29/2025 2:00 PM HOSPITAL TECHNICIAN Treatment [facility] at [facility], [facility] [address] [place] [address] None, ProviderMD 09/05/2025 2:00 PM HOSPITAL TECHNICIAN Treatment [facility] at [facility], [facility] [address] [place] [address] None, ProviderMD 09/12/2025 2:00 PM HOSPITAL TECHNICIAN Treatment [facility] at [facility], [facility] [address] [place] [address] None, ProviderMD 09/19/2025 2:00 PM HOSPITAL TECHNICIAN Treatment [facility] at [facility], [facility] [address] [place] [address] None, ProviderMD 09/26/2025 2:00 PM HOSPITAL TECHNICIAN Treatment [facility] at [facility], [facility] [address] [place] [address] None, ProviderMD documented as of this encounter Visit Diagnoses Not on filedocumented in this encounter Additional Health Concerns Assessment Noted Time PHQ-9 Depression Total Score: 8 02/19/20 24 9:53 AM CDT documented as of this encounter Care Teams Social Professionals Relationship Specialty Start Date End Date Luann Valdovinos NP [address] [place] [address] PCP - General NURSE PRACTITIONER 10/30/23 Romaine Decker MD [facility]. [facility] [address] [place] [address] Consulting Physician CARDIOVASCULAR DISEASE 06/20/24 Baljinder Morejon MD NPI: [id number] [place] [address]. [address] [address] Consulting Physician CLINICAL CARDIAC ELECTROPHYSIOLOGY 11/08/24 documented as of this encounter
--- OUTSIDE RECORDS SUMMARY | 2025-08-09 20:52 | XMS_ITS | Encounter Summary ---
Author Organization [facility] Address [facility] [place] [address] Care Team Providers Care Dynamo Tender Name Role Phone Elizabeth Arnold MD Primary Care Provider [phone] Francois Dailey DO Primary Care Provider [phone] Luann Valdovinos NP Primary Care Provider [phone] Romaine Decker MD Unavailable [phone] Baljinder Morejon MD Unavailable Encounter Details Date Type Department Care Team (Late st Contact Info) Description 07/02/2021 MyCSincht Message Enc [facility] Family & Internal Medicine [address] [address] Elizabeth Arnold [place] [id number] [place] [address] Reactions Social History Tobacco Use Types Packs/Day Years [...] Sex Assigned at Female 09/27/2024 2:16 PM FOOD BEVERAGE ATTENDANT Legal Sex Female 6:54 PM CDT Gender Identity Female 02/22/2025 2:51 PM CDT Sexual Orientation Not on file 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 No / Unsure 07/04/2021 10:15 AM FOOD BEVERAGE ATTENDANT documented as of this encounter Progress Notes * Eri Kiser RN - 07/03/2021 7:57 AM CST Printed to discuss with Dr. Johnson BEVERAGE ATTENDANT documented in this encounter Plan of Treatment Upcoming Encounters Date Type Department Care Team (Late st Contact Info) Description 08/14/2025 4:30 PM FOOD BEVERAGE ATTENDANT [facility], [facility] [address] [place] [address] Kory Brown MD [facility]. [facility] [address] [place] [address] 08/15/2025 2:00 PM FOOD BEVERAGE ATTENDANT Treatment [facility], [place] [address] [place] [address] None, MD Medardo 08/22/2025 2:00 PM FOOD BEVERAGE ATTENDANT Treatment [facility], [address] [address] Chet, MD Medardo 08/29/2025 2:00 PM FOOD BEVERAGE ATTENDANT Treatment [facility] [place] at [facility], [place] [address] [place] [address] Chet, MD Medardo 09/05/2025 2:00 PM FOOD BEVERAGE ATTENDANT Treatment [facility] at [facility], [address] [address] None, ProviderMD 09/12/2025 2:00 PM FOOD BEVERAGE ATTENDANT Treatment [place], [facility] [address] [place] [address] None, ProviderMD 09/19/2025 2:00 PM FOOD BEVERAGE ATTENDANT Treatment [facility]fusion Services at [facility], [facility] [address] [place] [address] None, Provider, 09/26/2025 2:00 PM FOOD BEVERAGE ATTENDANT Treatment [facility] at [facility], [address] [address] None, ProviderMD documented as of this encounter Visit Diagnoses Not on filedocumented in this encounter Additional Health Concerns Assessment Noted Time PHQ-9 Depression Total Score: 3 05/28/20 20 1:45 PM CDT documented as of this encounter Care Teams Dynamo Tender Relationship Specialty Start Date End Date Elizabeth Arnold MD PCP - General INTERNAL MEDICINE 04/22/21 12/17/22 Francois Dailey DO [address] [facility] [address] [address] PCP - General FAMILY PRACTICE 02/21/23 10/29/23 Luann Valdovinos NP [address] [place] [address] PCP - General NURSE PRACTITIONER 10/30/23 Romaine Decker MD [facility]. [facility] [address] [place] [address] Consulting Physician CARDIOVASCULAR DISEASE 06/20/24 Baljinder Morejon MD [facility]. [address] [address] Consulting Physician CLINICAL CARDIAC ELECTROPHYSIOLOGY 11/08/24 documented as of this encounter
--- OUTSIDE RECORDS SUMMARY | 2025-08-09 20:52 | XMS_ITS | Encounter Summary ---
Author Organization [facility] Address [facility] [place] [address] Care Team Providers Care Wall Man Name Role Phone Elizabeth Arnold MD Primary Care Provider [phone] Francois Dailey DO Primary Care Provider [phone] Luann Valdovinos NP Primary Care Provider [phone] Romaine Decker MD Unavailable [phone] Baljinder Morejon MD Unavailable Encounter Details Date Type Department Care Team (Late st Contact Info) Description 08/13/2021 StackAdaptt Message Enc [facility] Medical Group Family & Internal Medicine [address] [address] Elizabeth Arnold [place] [id number] [place] [address] Question regarding [employer] Social History Tobacco Use Types Packs/Day Years [...] Sex Assigned at Female 09/27/2024 2:16 PM COLOR COATER Legal Sex Female 6:54 PM CDT Gender Identity Female 02/22/2025 2:51 PM CDT Sexual Orientation Not on file 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 No / Unsure 08/12/2021 12:43 PM COLOR COATER documented as of this encounter Plan of Treatment Upcoming Encounters Date Type Department Care Team (Late st Contact Info) Description 08/14/2025 4:30 PM COLOR COATER [facility], [place] [address] [place] [address] Kory Brown MD [facility]. [facility] [address] [place] [address] 08/15/2025 2:00 PM COLOR COATER Treatment [facility], [facility] [address] [place] [address] None, ProviderMD 08/22/2025 2:00 PM COLOR COATER Treatment [facility] at [facility], [place] [address] [place] [address] None, ProviderMD 08/29/2025 2:00 PM COLOR COATER Treatment [facility], [facility] [address] [place] [address] None, ProviderMD 09/05/2025 2:00 PM COLOR COATER Treatment [facility], [facility] [address] [place] [address] None, ProviderMD 09/12/2025 2:00 PM COLOR COATER Treatment [facility], [facility] [address] [place] [address] None, MD Medardo 09/19/2025 2:00 PM COLOR COATER Treatment [facility]fusion Services at [facility], [facility] [address] [place] [address] Chet, MD Medardo 09/26/2025 2:00 PM COLOR COATER Treatment [facility] at [facility], [facility] [address] [place] [address] None, ProviderMD documented as of this encounter Visit Diagnoses Not on filedocumented in this encounter Additional Health Concerns Assessment Noted Time PHQ-9 Depression Total Score: 2 08/05/20 21 12:14 PM COLOR COATER documented as of this encounter Care Teams Wall Man Relationship Specialty Start Date End Date Elizabeth Arnold MD PCP - General INTERNAL MEDICINE 04/22/21 12/17/22 Francois Dailey DO [address] [facility] [address] [place], [place] [id number] PCP - General FAMILY PRACTICE 02/21/23 10/29/23 Luann Valdovinos NP [address] [place] [address] PCP - General NURSE PRACTITIONER 10/30/23 Romaine Decker MD [facility]. [facility] [address] [place] [address] Consulting Physician CARDIOVASCULAR DISEASE 06/20/24 Baljinder Morejon MD [facility]. [facility] [address] [place] [address] Consulting Physician CLINICAL CARDIAC ELECTROPHYSIOLOGY 11/08/24 documented as of this encounter
--- OUTSIDE RECORDS SUMMARY | 2025-08-09 20:52 | XMS_ITS | Clinical Summary ---
Author Organization [facility] Address [address] [place] [address] Care Team Providers Care Pet House Sitter Name Role Phone Luann Valdovinos MD Primary Care Provider [phone] JeancarlosDarlene MD Unavailable [phone] Allergies Active Allergy Reactions Criticality Noted Date Comments Adhesive Rash Medium 05/28/2020 Amitriptyline Other (See comments),Unknown Low 02/27/2021 Couldn't sleep Oyglcdodbd-Cjhdaatr-Lox moterol Other (See comments),Chest tightness Medium 08/08/2021 [place] burning in chest Budesonide-Formoterol Palpitations,Othe r (See comments),Unknown Medium 08/08/2021 [place] burning in chest Ciprofloxacin Unknown 10/30/2023 Must avoid all of this drug class Cyclobenzaprine Other (See comments),Unknown Low 11/07/2022 Weakness and did not like the way it made her feel Weakness and did not like the way it made her feel Weakness and did not like the way it made her feel Weakness and did not like the way it made her feel Gabapentin Headache Low 08/22/2024 Ketorolac Tromethamine Rash Medium 04/11/2025 Levofloxacin Other (See comments) 04/10/2025 States she cannot have any fluoroquinolone medications Methocarbamol Other (See comments) Low 05/24/2024 Head was 'buzzing', Metronidazole Other (See comments) Low 05/09/2021 Facial gel ( caused burning sensation) Montelukast Headache High 02/07/2021 Headache and trouble sleeping Oxycodone Hives,Itching Medium 04/11/2025 Propranolol Other (See comments) Low 12/25/2022 Dry mouth Medications ivermectin 1 % creamIndication s:Rosacea, unspecified Apply thin layer to face daily 45 g 11 07/08/20 22 Active galcanezumab-gn lm (Emgality Pen) 120 mg/mL pen injector Inject 120 mg under the skin every 30 (thirty) days Active folic acid (FOLVITE) 1 mg tablet 10/16/19 23 Active diphenhydrAMINE (BENADRYL) 50 mg capsule Take 1 capsule (50 mg total) by mouth every 6 (six) hours as needed for itching Active onabotulinumtox Federica (BOTOX INJ) Inject as directed For migraines Active TiZANidine (ZANAFLEX) 4 mg capsule Take 1 capsule (4 mg total) by mouth as needed for muscle spasms Active acetaminophen (TYLENOL) 325 mg tablet Take 2 tablets (650 mg total) by mouth every 6 (six) hours as needed for pain Active hydroxychloroqu ine (PLAQUENIL) 200 mg tablet Take 2 tablets (400 mg total) by mouth nightly 10/26/19 24 Active sodium chloride 0.9 % nebulizer solution daily as needed 07/14/20 23 Active hydrOXYzine (ATARAX) 10 mg tablet 1 tablet (10 mg total) as needed 08/18/20 24 Active Spiriva Respimat 1.25 mcg/actuation inhaler INHALE 2 PUFFS BY MOUTH DAILY 4 g 9 02/01/20 25 Active carbidopa-levod opa (SINEMET) 25-100 mg per tablet Take 1 tablet by mouth 3 (three) times a day 02/03/20 25 Active famotidine (PEPCID) 40 mg tablet Take 1 tablet (40 mg total) by mouth 2 (two) times a day 180 tablet 3 03/06/20 25 Active naltrexone 4.5 mg capsule Take 1 capsule by mouth daily 05/07/20 21 Active dupilumab (Dupixent Pen) 300 mg/2 mL pen injectorIndicat ions:Idiopathic urticaria Inject 2 mL (300 mg total) under the skin every 14 (fourteen) days 4 mL 11 03/09/20 25 Active dupilumab (Dupixent Pen) 300 mg/2 mL pen injectorIndicat ions:Idiopathic urticaria Inject 4 mL (600 mg total) under the skin once for 1 dose 4 mL 03/09/20 25 Active traMADoL (ULTRAM) 50 mg tablet Take 1 tablet (50 mg total) by mouth every 6 (six) hours as needed 04/11/20 25 Active albuterol HFA (PROVENTIL HFA,VENTOLIN HFA,PROAIR HFA) 90 mcg/actuation inhalerIndicati ons:Moderate persistent asthma without complication Inhale 2 puffs every 4 (four) hours as needed for wheezing 1 each 04/18/20 25 Active drospirenone-et hinyl estradioL (YOGI,OCELLA) 3-0.03 mg per tablet TAKE 1 TABLET BY MOUTH DAILY. TAKING ACTIVE PILLS ONLY FOR 3 PACKS, THEN 1 WEEK OF PLACEBO PILLS. 252 tablet 12 04/26/20 25 Active levocetirizine (XYZAL) 5 mg tablet Take 2 tablets (10 mg total) by mouth 2 (two) times a day 360 tablet 3 04/28/20 25 Active cromolyn (GASTROCROM) 100 mg/5 mL solutionIndicat ions:Mast cell activation syndrome Take 10 mL (200 mg total) by mouth 4 (four) times a day before meals and nightly 1200 mL 11 04/28/20 25 Active Humira,CF, Pen 40 mg/0.4 mL pen injector kit 03/30/20 25 Active verapamil ER (VERELAN) 120 mg 24 hr capsule Take 1 capsule (120 mg total) by mouth nightly 05/17/20 25 Active Auvi-Q 0.3 mg/0.3 mL auto-injection syringeIndicati ons:Shrimp allergy INJECT 0.3 ML INTO THE MUSCLE NEEDED FOR ANAPHYLAXIS DIRECTED. CALL 911 AFTER USE. 2 each 06/21/20 25 Active fluticasone propion-salmete roL (AIRDUO RESPICLICK) 113-14 mcg/actuation inhaler INHALE 1 PUFF BY MOUTH TWICE DAILY. RINSE MOUTH WITH WATER AFTER USE. DO NOT SWALLOW 3 each 2 08/03/20 25 Active fluticasone propion-salmete roL (AIRDUO RESPICLICK) 113-14 mcg/actuation inhaler INHALE 1 PUFF BY MOUTH TWICE DAILY. RINSE MOUTH WITH WATER AFTER USE. 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 Moderate persistent asthma without complication Encounters Date Type Department Care Team Description 08/09/2025 1:45 PM COMPUTER INFORMATION SCIENCE PROFESSOR Therapy [facility] Outpatient Speech Pathology [address] [place] [address] [address] [place] [phone] Vidhya Quick, AMARIS Dysphagia, unspecified type (Primary Dx) 08/09/2025 1:07 PM COMPUTER INFORMATION SCIENCE PROFESSOR Hospital Encounter [facility] [address] [place] [address] Dysphagia, oropharyngeal 07/17/2025 11:40 AM COMPUTER INFORMATION SCIENCE PROFESSOR Therapy [facility] Otolaryngology [address] [place] [address] [address] [place] [phone] Elisha Wilson, AMARIS Dysphonia (Primary Dx); Tonsillolith; Chronic tonsillitis 07/17/2025 11:40 AM COMPUTER INFORMATION SCIENCE PROFESSOR Office Visit [facility] Medicine ENT [address] [place] [address] [address] Darren Tai MD Dysphagia, oropharyngeal (Primary Dx); Tinnitus of both ears; Dysphonia 07/06/2025 10:00 AM COMPUTER INFORMATION SCIENCE PROFESSOR Therapy [facility] Otolaryngology [address] [place] [address] [address] Betsy Willis, AMARIS Dysphonia (Primary Dx) 06/23/2025 Results Follow-Up [facility] Pediatric Genetics [facility] 2nd [place] [address] [place] [id number] Gracia Barney, [facility] Genomics external report 06/15/2025 Orders Only [facility] Uzma Garcia MD 05/24/2025 3:00 PM CDT Therapy [facility] Medicine Otolaryngology [address] [facility] 11th [place] [address] [place] [phone] Betsy Willis SLP Dysphonia (Primary Dx); Tonsillolith; Chronic tonsillitis 05/24/2025 3:00 PM CDT Office Visit [facility] ([facility] - [facility] Medicine ENT [address] [facility] 11th [place] [address] [place] [phone] Darren Tai MD Chronic tonsillitis (Primary Dx) from Last 3 Months Immunizations Immunization Administration Dates Next Due Influenza, Quadrivalent, Helen l Culture-based MDCK, Antibiotic Free, Intramuscular 08/24/2020 Influenza, Unspecified 05/28/2020 Surgical History Surgery Date Site/Laterality Comments WISDOM TOOTH EXTRACTION ESOPHAGOGASTRODUODENOSCOPY COLONOSCOPY Medical History Medical History Date Comments Asthma Eczema Maryam-Danlos, hypermobile type Adhd Combined Heart problem POTS (postural orthostatic tachycardia syndrome) Migraines Plantar fasciitis IBS (irritable bowel syndrome) Autism spectrum disorder Generalized anxiety disorder Major depressive disorder, recurrent episode, mo derate (HCC) Menstrual problem Family History Medical History Relation Name Comments Arthritis Father Mary COPD Father Mary Cancer Father [place] Heart disease Father Mary Aneurysm Maternal Grandfather Alvaro Stroke Maternal Grandfather Alvaro Cancer Maternal Grandmother Cee Diabetes Maternal Grandmother Cee Heart disease Maternal Grandmother Cee Thyroid disease Maternal Grandmother Cee Fibromyalgia Mother Fibromyalgia Mother's Sister Thyroid disease Mother's Sister Genetic Disorder Other Many Family Members Hypertension Other Infertile Other Irritable bowel syndrome Other Mental illness Other Obesity Other Thyroid disease Other Cancer Paternal Grandfather Don Heart disease Paternal Grandfather Don Thyroid disease Paternal Grandmother Allergic rhinitis Sister 1 Arely Allergy (severe) Sister 1 Arely Arthritis Sister 1 Arely Asthma Sister 1 Arely Epilepsy Sister 1 Arely Fibromyalgia Sister 1 Arely Thyroid disease Sister 1 Arely defects Sister 2 Jodee Relation Name Status Comments Father Mary Maternal Grandfather Alvaro Maternal Grandmother Cee Mother Mother's Sister Other Paternal Grandfather Don Paternal Grandmother Sister 1 Arely Sister 2 Jodee Alive Social History Tobacco Use Types Packs/Day Years Used Date Smoking Tobacco: Never Smokeless Tobacco: Never Tobacco Cessation:Counseling Given: Not Answered AUDIT-C Answer Date Recorded Frequency of Alcohol [...] Orientation Straight 12/09/2021 6: 29 PM CDT Obstetrics History Para Term AB IAB SAB Ectopic Multiple Livin g Live Births 0 0 0 0 0 0 0 0 0 0 0 Last Filed Vital Signs Vital Sign Reading Time Taken Comments Blood Pressure 113/74 04/28/2025 2:05 PM CDT Pulse 98 04/28/2025 2:05 PM CDT Temperature 36.8 C (98.3 F) 04/28/2025 2:05 PM CDT Respiratory Rate 16 06/14/2024 1:13 PM CDT Oxygen Saturation 100% 04/28/2025 2:05 PM CDT Inhaled Oxygen Concentration - - Weight 68.9 kg (151 lb 14.4 oz) 05/09/2025 9:12 AM CDT Height 160 cm (5' 2.99) 05/09/2025 9:12 AM CDT Body Mass Index 26.91 05/09/2025 9:12 AM CDT Plan of Treatment Health Maintenance Due Date Last Done Comments Cervical Cancer Screening 1987 Depression Screening 1987 Hepatitis C Screening 1987 DTaP/Tdap/Td Vaccine (1 - Tdap) 1998 Varicella Vaccines (1 of 2 - 13+ 2-dose series) 02/11/2000 Hepatitis B Screening 2005 Regular Well Visit/Exam 18-64 2005 Pneumococcal vaccine <65 (1 of 2 - PCV) 2006 Zoster Vaccine (1 of 2) 2006 HPV Vaccines (1 - 3-dose SCDM series) 2014 Influenza Vaccine (#1) 2025 08/24/2020, 2019 Procedures Procedure Name Priority Date/Time Associated Diagnosis Comments FL MODIFIED BARIUM SWALLOW W VIDEO Schedule Routine, Read Routine (OP Routine) 08/09/2025 2:10 PM COMPUTER INFORMATION SCIENCE PROFESSOR Dysphagia, oropharyngeal GENOMICS EXTERNAL REPORT Routine 06/15/2025 1:16 PM CDT SCAN - LABS 06/15/2025 from Last 3 Months Results * FL Modified Barium Swallow W Video (08/09/2025 2:10 PM COMPUTER INFORMATION SCIENCE PROFESSOR) Anatomical Region Laterality Modality Head and Neck N/A Radio Fluoroscop y 08/09/2025 2:42 PM COMPUTER INFORMATION SCIENCE PROFESSOR Impressions 08/09/2025 2:43 PM COMPUTER INFORMATION SCIENCE PROFESSOR The swallowing mechanism is normal; see above [...] Geena Davis M.D. Narrative 08/09/2025 2:43 PM COMPUTER INFORMATION SCIENCE PROFESSOR EXAMINATION: MODIFIED BARIUM SWALLOW HISTORY: Dysphagia. TECHNIQUE: [...] and recommended follow up. Dictated by: Justin Barun MD The radiology attending physician has personally reviewed this study, and had reviewed and/or edited this written report and agrees with it. Electronically signed by: Geena Davis M.D. us Darren Tai MD IMG FLUOROSCOPY PROCEDUR ES Final Result * Genomics external report (06/15/2025 1:16 PM CDT) us Historical Provider LAB GENETIC TESTING Final Result EXTERNAL LAB * SCAN - LABS (06/15/2025) Uzma Garcia MD Final Result from Last 3 Months [place] Care Teams Pet House Sitter Relationship Specialty Start Date End Date Luann Valdovinos MD PCP - General Nurse Practitioner 01/15/24 Darlene Arshad MD [address] [place] [address] Surgeon Medical Oncology 07/14/25
--- OUTSIDE RECORDS SUMMARY | 2025-08-09 20:52 | XMS_ITS | Encounter Summary ---
Author Organization [facility] Address [facility]ly [facility] [place] [address] Care Team Providers Care Earth Boring Machine Operator Name Role Phone Elizabeth Arnold MD Primary Care Provider [phone] Francois Dailey DO Primary Care Provider [phone] Luann Valdovinos NP Primary Care Provider [phone] Romaine Decker MD Unavailable [phone] Baljinder Morejon MD Unavailable Encounter Details Date Type Department Care Team (Late st Contact Info) Description 10/13/2021 [employer] Message Enc [facility] Family & Internal Medicine [address] [address] [place] [id number] [place] [address] Test for [place] Social History Tobacco Use Types Packs/Day Years [...] Sex Assigned at Female 09/27/2024 2:16 PM GENERAL SCRAP WORKER Legal Sex Female 6:54 PM CDT Gender Identity Female 02/22/2025 2:51 PM CDT Sexual Orientation Not on file 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 No / Unsure 10/15/2021 10:35 AM GENERAL SCRAP WORKER documented as of this encounter Progress Notes * Eri Kiser RN - 10/14/2021 3:[address] Johnson stated that Patient Support Specialist should have done a tilt table test with pt. Nurse called pt and she stated she is going for a nurse visit tomorrow with cardiology to complete this. RAL SCRAP WORKER * Eri Kiser RN - 10/14/2021 1:58 PM CST Printed to discuss with Dr. Johnson if she wants to see pt, or if ok to schedule for just a nurse visit for orthostatic BP RAL SCRAP WORKER documented in this encounter Plan of Treatment Upcoming Encounters Date Type Department Care Team (Late st Contact Info) Description 08/14/2025 4:30 PM GENERAL SCRAP WORKER Allied Health/Nurse Visit [facility], [facility] [address] [place] [address] [facility] [address] [place] [address] 08/15/2025 2:00 PM GENERAL SCRAP WORKER Treatment [facility], [facility] [address] [place] [address] Medardo Rosenberg MD 08/22/2025 2:00 PM GENERAL SCRAP WORKER Treatment [facility], [facility] [address] [place] [address] None, ProviderMD 08/29/2025 2:00 PM GENERAL SCRAP WORKER Treatment [facility] [address] [address] None, ProviderMD 09/05/2025 2:00 PM GENERAL SCRAP WORKER Treatment [facility] [address] [address] None, Provider, 09/12/2025 2:00 PM GENERAL SCRAP WORKER Treatment [facility] [address] [address] None, ProviderMD 09/19/2025 2:00 PM GENERAL SCRAP WORKER Treatment [facility] [address] [address] None, ProviderMD 09/26/2025 2:00 PM GENERAL SCRAP WORKER Treatment [facility] [address] [address] None, ProviderMD documented as of this encounter Visit Diagnoses Not on filedocumented in this encounter Additional Health Concerns Assessment Noted Time PHQ-9 Depression Total Score: 2 08/05/20 21 12:14 PM GENERAL SCRAP WORKER documented as of this encounter Care Teams Earth Boring Machine Operator Relationship Specialty Start Date End Date Elizabeth Arnold MD PCP - General INTERNAL MEDICINE 04/22/21 12/17/22 Francois Dailey DO [address] [place] [address] [address] PCP - General FAMILY PRACTICE 02/21/23 10/29/23 Luann Valdovinos NP [address] [place] [address] PCP - General NURSE PRACTITIONER 10/30/23 Romaine Decker MD [facility]. [address] [address] Consulting Physician CARDIOVASCULAR DISEASE 06/20/24 Baljinder Morejon MD Three [facility]. [address] [address] Consulting Physician CLINICAL CARDIAC ELECTROPHYSIOLOGY 11/08/24 documented as of this encounter
--- OUTSIDE RECORDS SUMMARY | 2025-08-09 20:52 | XMS_ITS | Encounter Summary ---
Author Organization [facility] Address [facility] [place] [address] Care Team Providers Care Air Tube Releaser Name Role Phone Luann Valdovinos NP Primary Care Provider [phone] Romaine Decker MD Unavailable [phone] Baljinder Morejon MD Unavailable Encounter Details Date Type Department Care Team (Late Contact Info) Description 06/28/2025 [employer] Message Enc [facility] [address] [id number] [facility], [facility] Provider Symptoms reviewed Social History Tobacco Use Types Packs/Day Years Used Date Smoking Tobacco: Never Smokeless Tobacco: Never Alcohol Use Standard Drinks/Week Comments Yes 0 (1 standard drink = 0.6 oz pur e alcohol) rare, once or twice a year PHQ-2 Answer Date Recorded Patient Health Questionnaire-2 Score 0 04/05/2025 Comments No Sex and Gender Information Value Date Recorded Sex Assigned at Female 09/27/2024 2:16 PM BODY STRAIGHTENER Legal Sex Female 6:54 PM CDT Gender Identity Female 02/22/2025 2:51 PM CDT Sexual Orientation Not on file 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 [facility] [address] [place] [address] 08/15/2025 2:00 PM BODY STRAIGHTENER Treatment [facility], [facility] [address] [place] [address] None, ProviderMD 08/22/2025 2:00 PM BODY STRAIGHTENER Treatment [facility], [facility] [address] [place] [address] None, ProviderMD 08/29/2025 2:00 PM BODY STRAIGHTENER Treatment [facility], [facility] [address] [place] [address] None, ProviderMD 09/05/2025 2:00 PM BODY STRAIGHTENER Treatment [facility], [facility] [address] [place] [address] None, ProviderMD 09/12/2025 2:00 PM BODY STRAIGHTENER Treatment [facility], [place] [address] [place] [address] None, ProviderMD 09/19/2025 2:00 PM BODY STRAIGHTENER Treatment [facility], [facility] [address] [place] [address] None, ProviderMD 09/26/2025 2:00 PM BODY STRAIGHTENER Treatment [facility], [facility] [address] [place] [address] None, ProviderMD documented as of this encounter Visit Diagnoses Not on filedocumented in this encounter Additional Health Concerns Assessment Noted Time PHQ-9 Depression Total Score: 8 02/19/20 24 9:53 AM CDT documented as of this encounter Care Teams Air Tube Releaser Relationship Specialty Start Date End Date Luann Valdovinos NP [address] [place] [address] PCP - General NURSE PRACTITIONER 10/30/23 Romaine Decker MD [facility]. [address] [place] [address] Consulting Physician CARDIOVASCULAR DISEASE 06/20/24 Baljinder Morejon MD [facility]. [address] [place], [place] [address] Consulting Physician CLINICAL CARDIAC ELECTROPHYSIOLOGY 11/08/24 documented as of this encounter
--- OUTSIDE RECORDS SUMMARY | 2025-08-09 20:52 | XMS_ITS | Encounter Summary ---
Author Organization [facility] Address [facility] [place] [address] Care Team Providers Care Restaurant Management Internship Name Role Phone Elizabeth Arnold MD Primary Care Provider [phone] Francois Dailey DO Primary Care Provider [phone] Luann Valdovinos NP Primary Care Provider + [phone] Romaine Decker MD Unavailable [phone] Baljinder Morejon MD Unavailable Encounter Details Date Type Department Care Team (Late st Contact Info) Description 12/09/2021 [employer] Message Enc [facility] Family & Internal Medicine [address] [address] Elizabeth Arnold [place] [id number] [place] [address] Medication Social History Tobacco Use Types Packs/Day Years [...] Sex Assigned at Female 09/27/2024 2:16 PM FRUIT HARVESTER MACHINE OPERATOR Legal Sex Female 6:54 PM CDT Gender Identity Female 02/22/2025 2:51 PM CDT Sexual Orientation Not on file 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 No / Unsure 11/18/2021 2:49 PM CDT documented as of this encounter Progress Notes * Magaly Vo RN - 12/10/2021 11:04 AM CDT Printed for review documented in this encounter Plan of Treatment Upcoming Encounters Date Type Department Care Team (Late st Contact Info) Description 08/14/2025 4:30 PM FRUIT HARVESTER MACHINE OPERATOR Allied Health[facility], [facility] [address] [place] [address] K[facility] Brown MD [facility] [address] [place] [address] 08/15/2025 2:00 PM FRUIT HARVESTER MACHINE OPERATOR Treatment [facility], [place] [address] [place] [address] None, MD Medardo 08/22/2025 2:00 PM FRUIT HARVESTER MACHINE OPERATOR Treatment [facility], [place] [address] [place] [address] None, MD Medardo 08/29/2025 2:00 PM FRUIT HARVESTER MACHINE OPERATOR Treatment [facility], [facility] [address] [place] [address] Chet, MD Medardo 09/05/2025 2:00 PM FRUIT HARVESTER MACHINE OPERATOR Treatment [facility], [place] [address] [place] [address] None, Provider, 09/12/2025 2:00 PM FRUIT HARVESTER MACHINE OPERATOR Treatment [facility], [facility] [address] [place] [address] None, ProviderMD 09/19/2025 2:00 PM FRUIT HARVESTER MACHINE OPERATOR Treatment [facility] Services at [facility], [facility] [address] [place] [address] None, Provider, 09/26/2025 2:00 PM FRUIT HARVESTER MACHINE OPERATOR Treatment [facility] Services at [facility], [facility] [address] [place] [address] None, Provider, documented as of this encounter Visit Diagnoses Not on filedocumented in this encounter Additional Health Concerns Assessment Noted Time PHQ-9 Depression Total Score: 0 11/05/19 4:56 PM CDT documented as of this encounter Care Teams Restaurant Management Internship Relationship Specialty Start Date End Date Elizabeth Arnold MD PCP - General INTERNAL MEDICINE 04/22/21 12/17/22 Francois Dailey DO [facility] [address] [address] PCP - General FAMILY PRACTICE 02/21/23 10/29/23 Luann Valdovinos NP [address] [place] [address] PCP - General NURSE PRACTITIONER 10/30/23 Romaine Decker MD [facility] [address] [place] [address] Consulting Physician CARDIOVASCULAR DISEASE 06/20/24 Baljinder Morejon MD [facility]. [address] [address] Consulting Physician CLINICAL CARDIAC ELECTROPHYSIOLOGY 11/08/24 documented as of this encounter
--- OUTSIDE RECORDS SUMMARY | 2025-08-09 20:52 | XMS_ITS | Encounter Summary ---
Author Organization [facility] Address Critical access hospital[address] [place] [address] Care Team Providers Care Organ Tuner Name Role Phone Elizabeth Arnold MD Primary Care Provider + [phone] Francois Dailey DO Primary Care Provider [phone] Luann Valdovinos NP Primary Care Provider + [phone] Romaine Decker MD Unavailable [phone] Baljinder Morejon MD Unavailable Encounter Details Date Type Department Care Team (Late st Contact Info) Description 09/16/2021 [employer] Message Enc [facility], [address] [phone] Romaine Decker MD [address] [address] Loop recorder serial number Social History Tobacco Use Types Packs/Day Years [...] Sex Assigned at Female 09/27/2024 2:16 PM VENDING MACHINE REFILLER Legal Sex Female 6:54 PM CDT Gender Identity Female 02/22/2025 2:51 PM CDT Sexual Orientation Not on file 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 No / Unsure 09/10/2021 8:07 AM VENDING MACHINE REFILLER documented as of this encounter Plan of Treatment Upcoming Encounters Date Type Department Care Team (Late st Contact Info) Description 08/14/2025 4:30 PM VENDING MACHINE REFILLER Allied Health/[facility], [place] [address] [place] [address] Kory Brown MD [facility]. [facility] [address] [place] [address] 08/15/2025 2:00 PM VENDING MACHINE REFILLER Treatment [facility], [facility] [address] [place] [address] None, ProviderMD 08/22/2025 2:00 PM VENDING MACHINE REFILLER Treatment [facility], [place] [address] [place] [address] None, ProviderMD 08/29/2025 2:00 PM VENDING MACHINE REFILLER Treatment [facility], [facility] [address] [place] [address] None, ProviderMD 09/05/2025 2:00 PM VENDING MACHINE REFILLER Treatment [facility], [facility] [address] [place] [address] None, ProviderMD 09/12/2025 2:00 PM VENDING MACHINE REFILLER Treatment [facility], [facility] [address] [place] [address] None, MD Medardo 09/19/2025 2:00 PM VENDING MACHINE REFILLER Treatment [facility]fusion Services at [facility], [facility] [address] [place] [address] Chet, MD Medardo 09/26/2025 2:00 PM VENDING MACHINE REFILLER Treatment [facility]fusion Services at [facility], [facility] [address] [place] [address] None, ProviderMD documented as of this encounter Visit Diagnoses Not on filedocumented in this encounter Additional Health Concerns Assessment Noted Time PHQ-9 Depression Total Score: 2 08/05/20 21 12:14 PM VENDING MACHINE REFILLER documented as of this encounter Care Teams Organ Tuner Relationship Specialty Start Date End Date Elizabeth Arnold MD PCP - General INTERNAL MEDICINE 04/22/21 12/17/22 Francois Dailey DO [address] [facility] [address] [place], [place] [id number] PCP - General FAMILY PRACTICE 02/21/23 10/29/23 Luann Valdovinos NP [address] [place] [address] PCP - General NURSE PRACTITIONER 10/30/23 Romaine Decker MD [facility]. [facility] [address] [place] [address] Consulting Physician CARDIOVASCULAR DISEASE 06/20/24 Baljinder Morejon MD [facility]. [facility] [address] [place] [address] Consulting Physician CLINICAL CARDIAC ELECTROPHYSIOLOGY 11/08/24 documented as of this encounter
--- OUTSIDE RECORDS SUMMARY | 2025-08-09 20:52 | XMS_ITS | Encounter Summary ---
Author Organization [facility] Address [facility] [place] [address] Care Team Providers Care Data Center Technician Name Role Phone Elizabeth Arnold MD Primary Care Provider [phone] Francois Dailey DO Primary Care Provider [phone] Luann Valdovinos NP Primary Care Provider + [phone] Romaine Decker MD Unavailable [phone] Baljinder Morejon MD Unavailable Encounter Details Date Type Department Care Team (Late st Contact Info) Description 10/28/2021 [employer] Message Enc [facility] Medical Group Family & Internal Medicine [address] [address] Elizabeth Arnold [place] [id number] [place] [address] Possible torn quad muscle Social History Tobacco Use Types Packs/Day Years [...] Sex Assigned at Female 09/27/2024 2:16 PM MULTIMEDIA SERVICES MANAGER Legal Sex Female 6:54 PM CDT Gender Identity Female 02/22/2025 2:51 PM CDT Sexual Orientation Not on file 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 No / Unsure 10/28/2021 10:46 AM MULTIMEDIA SERVICES MANAGER documented as of this encounter Functional Status * Calculated C-SSRS Risk Score (Lifetime/Recent) Answer Date of Assessment Author Status No Risk Indicated 10/28/2021 10:45 AM MULTIMEDIA SERVICES MANAGER Austyn Parson RN Active * [place] Suicide Severity Rating Scale (Screener/Recent Self-Report) Question Answer Date of Assessment Author Status 1. Wish to be (Past 1 Month) No 10/28/2021 10:45 AM MULTIMEDIA SERVICES MANAGER Mgea Parson, RN Acti ve 2. Non-Specific Active Suicidal Thoughts (Past 1 Month) No 10/28/2021 10:45 AM MULTIMEDIA SERVICES MANAGER Mega Parson, ALEX Acti ve 6. Suicidal Behavior (Lifetime) No 10/28/2021 10:45 AM MULTIMEDIA SERVICES MANAGER Mega Parson, RN Acti ve documented as of this encounter Progress Notes * Magaly Vo RN - 10/29/2021 10:45 AM CST Called patient and scheduled follow up appt for 11/04 at 4:20 IMEDIA SERVICES MANAGER * Tammy Dixon MA - 10/28/2021 9:12 AM CST Spoke with patient. Sx contiues this am. Attempted to make appointment but limited spots. Patient advised to go to Urgenct care or ER. Patient V/U. IMEDIA SERVICES MANAGER * Tammy Dixon MA - 10/28/2021 8:43 AM CST LMOM IMEDIA SERVICES MANAGER documented in this encounter Plan of Treatment Upcoming Encounters Date Type Department Care Team (Late st Contact Info) Description 08/14/2025 4:30 PM MULTIMEDIA SERVICES MANAGER Allied Health/Nurse Visit Tiffanie RainesNoahNimesh veda [facility] [place] [address] [place] [address] Kory Brown MD [facility]. [place] [address] [place] [address] 08/15/2025 2:00 PM MULTIMEDIA SERVICES MANAGER Treatment [facility], [facility] [address] [place] [address] None, Provider, 08/22/2025 2:00 PM MULTIMEDIA SERVICES MANAGER Treatment [facility], [facility] [address] [place] [address] None, Provider, 08/29/2025 2:00 PM MULTIMEDIA SERVICES MANAGER Treatment [facility], [facility] [address] [place] [address] None, Provider, 09/05/2025 2:00 PM MULTIMEDIA SERVICES MANAGER Treatment [facility], [facility] [address] [place] [address] None, Provider, 09/12/2025 2:00 PM MULTIMEDIA SERVICES MANAGER Treatment [facility], [facility] [address] [place] [address] None, Provider, 09/19/2025 2:00 PM MULTIMEDIA SERVICES MANAGER Treatment [facility], [facility] [address] [place] [address] None, Provider, 09/26/2025 2:00 PM MULTIMEDIA SERVICES MANAGER [facility] [address] [place] [address] None, MD Medardo documented as of this encounter Visit Diagnoses Not on filedocumented in this encounter Additional Health Concerns Assessment Noted Time PHQ-9 Depression Total Score: 2 08/05/20 21 12:14 PM MULTIMEDIA SERVICES MANAGER documented as of this encounter Care Teams Data Center Technician Relationship Specialty Start Date End Date Elizabeth Arnold MD PCP - General INTERNAL MEDICINE 04/22/21 12/17/22 Francois Dailey DO [address] [facility] [address] [place] [address] PCP - General FAMILY PRACTICE 02/21/23 10/29/23 Luann Valdovinos NP [address] [place] [address] PCP - General NURSE PRACTITIONER 10/30/23 Romaine Decker MD [facility] [address] [place] [address] Consulting Physician CARDIOVASCULAR DISEASE 06/20/24 Baljinder Morejon MD [facility] [address] [place] [address] Consulting Physician CLINICAL CARDIAC ELECTROPHYSIOLOGY 11/08/24 documented as of this encounter
--- OUTSIDE RECORDS SUMMARY | 2025-08-09 20:52 | XMS_ITS | Encounter Summary ---
Author Organization [facility] Address [facility] [place] [address] Care Team Providers Care Heel Boom Operator Name Role Phone Luann Valdovinos NP Primary Care Provider [phone] Romaine Decker MD Unavailable Baljinder Morejon MD Unavailable Encounter Details Date Type Department Care Team (Late Contact Info) Description 06/19/2025 Visual [employer] Message Enc [facility] [address] [phone] [facility], [facility] Provider Symptoms reviewed Social History Tobacco Use [...] Sex Assigned at Female 09/27/2024 2:16 PM CUFF SETTER Legal Sex Female 6:54 PM CDT Gender Identity Female 02/22/2025 2:51 PM CDT Sexual Orientation Not on file 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, [place] [address] [place] [address] Kory Brown MD [facility]. [facility] [address] [place] [address] 08/15/2025 2:00 PM CUFF SETTER Treatment [facility], [facility] [address] [place] [address] None, ProviderMD 08/22/2025 2:00 PM CUFF SETTER Treatment [facility], [facility] [address] [place] [address] None, ProviderMD 08/29/2025 2:00 PM CUFF SETTER Treatment [facility], [facility] [address] [place] [address] None, ProviderMD 09/05/2025 2:00 PM CUFF SETTER Treatment [facility], [facility] [address] [place] [address] None, ProviderMD 09/12/2025 2:00 PM CUFF SETTER Treatment [facility], [place] [address] [place] [address] None, ProviderMD 09/19/2025 2:00 PM CUFF SETTER Treatment [facility], [facility] [address] [place] [address] None, ProviderMD 09/26/2025 2:00 PM CUFF SETTER Treatment [facility], [facility] [address] [place] [address] None, ProviderMD documented as of this encounter Visit Diagnoses Not on filedocumented in this encounter Additional Health Concerns Assessment Noted Time PHQ-9 Depression Total Score: 8 02/19/20 24 9:53 AM CDT documented as of this encounter Care Teams Heel Boom Operator Relationship Specialty Start Date End Date Luann Valdovinos NP [address] [place] [address] PCP - General NURSE PRACTITIONER 10/30/23 Romaine Decker MD Three [facility]. [place] [place] [address] Consulting Physician CARDIOVASCULAR DISEASE 06/20/24 Baljinder Morejon MD Three [facility]. [place] [address] [place], [place] [address] Consulting Physician CLINICAL CARDIAC ELECTROPHYSIOLOGY 11/08/24 documented as of this encounter
--- OUTSIDE RECORDS SUMMARY | 2025-08-09 20:52 | XMS_ITS | Encounter Summary ---
Author Organization [facility] Address Critical access hospital6 [place] [address] Care Team Providers Care Garment Finisher Name Role Phone Elizabeth Arnold MD Primary Care Provider + [phone] Francois Dailey DO Primary Care Provider [phone] Luann Valdovinos NP Primary Care Provider + [phone] Romaine Decker MD Unavailable [phone] Baljinder Morejon MD Unavailable Encounter Details Date Type Department Care Team (Late st Contact Info) Description 08/10/2021 [employer] Message Enc [place] [facility] THREE [facility], [address] [phone] Romaine Decker MD [facility]. 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 No / Unsure 08/12/2021 12:43 PM LOOM CHANGEOVER OPERATOR documented as of this encounter Plan of Treatment Upcoming Encounters Date Type Department Care Team (Late st Contact Info) Description 08/14/2025 4:30 PM LOOM CHANGEOVER OPERATOR Allied Health[facility], [place] [place] [address] Kory Brown MD [facility]. [facility] [address] [place] [address] 08/15/2025 2:00 PM LOOM CHANGEOVER OPERATOR Treatment [facility], [facility] [address] [place] [address] None, ProviderMD 08/22/2025 2:00 PM LOOM CHANGEOVER OPERATOR Treatment [facility], [facility] [address] [place] [address] None, ProviderMD 08/29/2025 2:00 PM LOOM CHANGEOVER OPERATOR Treatment [facility] at [facility], [facility] [address] [place] [address] None, ProviderMD 09/05/2025 2:00 PM LOOM CHANGEOVER OPERATOR Treatment [facility], [facility] [address] [place] [address] None, ProviderMD 09/12/2025 2:00 PM LOOM CHANGEOVER OPERATOR Treatment [facility], [place] [address] [place] [address] None, Provider, 09/19/2025 2:00 PM LOOM CHANGEOVER OPERATOR Treatment [facility] Infusion Services at [facility], [facility] [address] [place] [address] None, ProviderMD 09/26/2025 2:00 PM LOOM CHANGEOVER OPERATOR Treatment [facility] Infusion Services at [facility], [facility] [address] [place] [address] None, Provider, documented as of this encounter Visit Diagnoses Not on filedocumented in this encounter Additional Health Concerns Assessment Noted Time PHQ-9 Depression Total Score: 2 08/05/20 21 12:14 PM LOOM CHANGEOVER OPERATOR documented as of this encounter Care Teams Garment Finisher Relationship Specialty Start Date End Date Elizabeth Arnold MD PCP - General INTERNAL MEDICINE 04/22/21 12/17/22 Francois Dailey DO [address] [facility] [address] [place] [address] PCP - General FAMILY PRACTICE 02/21/23 10/29/23 Luann Valdovinos NP [address] [place] [address] PCP - General NURSE PRACTITIONER 10/30/23 Romaine Decker MD [facility]. [facility] [address] [place] [address] Consulting Physician CARDIOVASCULAR DISEASE 06/20/24 Baljinder Morejon MD [facility]. [facility] [address] [place] [address] Consulting Physician CLINICAL CARDIAC ELECTROPHYSIOLOGY 11/08/24 documented as of this encounter
--- OUTSIDE RECORDS SUMMARY | 2025-08-09 20:52 | XMS_ITS | Encounter Summary ---
Author Organization [facility] Address [facility] [place] [address] Care Team Providers Care Powered Bridge Specialist Name Role Phone Elizabeth Arnold MD Primary Care Provider [phone] Francois Dailey DO Primary Care Provider [phone] Luann Valdovinos NP Primary Care Provider [phone] Romaine Decker MD Unavailable [phone] Baljinder Morejon MD Unavailable Encounter Details Date Type Department Care Team (Late st Contact Info) Description 09/02/2021 [employer] citiest Message Enc [facility], [address] [id number] Romaine Decker MD [facility]. 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 No / Unsure 09/05/2021 7:01 AM COMMERCIAL AGENT documented as of this encounter Plan of Treatment Upcoming Encounters Date Type Department Care Team (Late st Contact Info) Description 08/14/2025 4:30 PM COMMERCIAL AGENT Allied Health/[facility], [address] [place] [address] Kory Brown MD [facility]. [facility] [address] [place] [address] 08/15/2025 2:00 PM COMMERCIAL AGENT Treatment [facility], [place] [address] [place] [address] None, ProviderMD 08/22/2025 2:00 PM COMMERCIAL AGENT Treatment [facility], [place] [address] [place] [address] None, ProviderMD 08/29/2025 2:00 PM COMMERCIAL AGENT Treatment [facility], [facility] [address] [place] [address] None, ProviderMD 09/05/2025 2:00 PM COMMERCIAL AGENT Treatment [facility], [place] [address] [place] [address] None, ProviderMD 09/12/2025 2:00 PM COMMERCIAL AGENT Treatment [place] at [facility], [place] [address] [place] [address] None, Provider, 09/19/2025 2:00 PM COMMERCIAL AGENT Treatment [facility] Services at [facility], [facility] [address] [place] [address] None, ProviderMD 09/26/2025 2:00 PM COMMERCIAL AGENT Treatment [facility] at [facility], [facility] [address] [place] [address] None, Provider, documented as of this encounter Visit Diagnoses Not on filedocumented in this encounter Additional Health Concerns Assessment Noted Time PHQ-9 Depression Total Score: 2 08/05/20 21 12:14 PM COMMERCIAL AGENT documented as of this encounter Care Teams Powered Bridge Specialist Relationship Specialty Start Date End Date Elizabeth Arnold MD PCP - General INTERNAL MEDICINE 04/22/21 12/17/22 Francois Dailey DO [address] [facility] [address] [place] [address] PCP - General FAMILY PRACTICE 02/21/23 10/29/23 Luann Valdovinos NP [address] [place] [address] PCP - General NURSE PRACTITIONER 10/30/23 Romaine Decker MD [facility]. [address] [place] [address] Consulting Physician CARDIOVASCULAR DISEASE 06/20/24 Baljinder Morejon MD [facility]. [facility] [address] [place] [address] Consulting Physician CLINICAL CARDIAC ELECTROPHYSIOLOGY 11/08/24 documented as of this encounter
--- OUTSIDE RECORDS SUMMARY | 2025-08-09 20:52 | XMS_ITS | Encounter Summary ---
Author Organization [facility] Address [facility] [place] [address] Care Team Providers Care Media Reconciliation Specialist Name Role Phone Luann Valdovinos NP Primary Care Provider [phone] Romaine Decker MD Unavailable [phone] Baljinder Morejon MD Unavailable Encounter Details Date Type Department Care Team (Late Contact Info) Description 06/16/2025 [employer] Message Enc [facility] [address] [phone] Mehran, [facility] Provider Symptom reviewed Social History Tobacco Use Types Packs/Day [...] Sex Assigned at Female 09/27/2024 2:16 PM SALES AGENT PROTECTIVE SERVICE Legal Sex Female 6:54 PM CDT Gender Identity Female 02/22/2025 2:51 PM CDT Sexual Orientation Not on file 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, [place] [address] [place] [address] Kory Brown MD [facility]. [facility] [address] [place] [address] 08/15/2025 2:00 PM SALES AGENT PROTECTIVE SERVICE Treatment [facility], [facility] [address] [place] [address] None, ProviderMD 08/22/2025 2:00 PM SALES AGENT PROTECTIVE SERVICE Treatment [facility], [facility] [address] [place] [address] None, ProviderMD 08/29/2025 2:00 PM SALES AGENT PROTECTIVE SERVICE Treatment [facility], [facility] [address] [place] [address] None, ProviderMD 09/05/2025 2:00 PM SALES AGENT PROTECTIVE SERVICE Treatment [facility], [facility] [address] [place] [address] None, ProviderMD 09/12/2025 2:00 PM SALES AGENT PROTECTIVE SERVICE Treatment [facility], [place] [address] [place] [address] None, ProviderMD 09/19/2025 2:00 PM SALES AGENT PROTECTIVE SERVICE Treatment [facility], [facility] [address] [place] [address] None, ProviderMD 09/26/2025 2:00 PM SALES AGENT PROTECTIVE SERVICE Treatment [facility], [facility] [address] [place] [address] None, ProviderMD documented as of this encounter Visit Diagnoses Not on filedocumented in this encounter Additional Health Concerns Assessment Noted Time PHQ-9 Depression Total Score: 8 02/19/20 24 9:53 AM CDT documented as of this encounter Care Teams Media Reconciliation Specialist Relationship Specialty Start Date End Date Luann Valdovinos NP [address] [place] [address] PCP - General NURSE PRACTITIONER 10/30/23 Romaine Decker MD Three [facility]. [address] [place] [address] Consulting Physician CARDIOVASCULAR DISEASE 06/20/24 Baljinder Morejon MD [facility]. [address] [place], [place] [address] Consulting Physician CLINICAL CARDIAC ELECTROPHYSIOLOGY 11/08/24 documented as of this encounter
--- OUTSIDE RECORDS SUMMARY | 2025-08-09 20:52 | XMS_ITS | Encounter Summary ---
Author Organization [facility] Address [facility] [place] [address] Care Team Providers Care Batch Trucker Name Role Phone Luann Valdovinos NP Primary Care Provider [phone] Romaine Decker MD Unavailable [phone] Baljinder Morejon MD Unavailable Encounter Details Date Type Department Care Team (Late Contact Info) Description 06/15/2025 [employer] Message Enc [facility] [address] [id number] Mehran, [facility] Provider Symptom Reviewed Social History Tobacco Use Types Packs/Day Years Used Date Smoking Tobacco: Never Smokeless Tobacco: Never Alcohol Use Standard Drinks/Week Comments Yes 0 (1 standard drink = 0.6 oz pur e alcohol) rare, once or twice a year PHQ-2 Answer Date Recorded Patient Health Questionnaire-2 Score 0 04/05/2025 Comments No Sex and Gender Information Value Date Recorded Sex Assigned at Female 09/27/2024 2:16 PM MOTOR AND GENERATOR BRUSH MAKER Legal Sex Female 6:54 PM CDT Gender Identity Female 02/22/2025 2:51 PM CDT Sexual Orientation Not on file 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 [facility] [address] [place] [address] 08/15/2025 2:00 PM MOTOR AND GENERATOR BRUSH MAKER Treatment [place], [email or web address] [address] [place] [address] None, ProviderMD 08/22/2025 2:00 PM MOTOR AND GENERATOR BRUSH MAKER Treatment [place], [facility] [[email or web address] [address] [place] [address] None, ProviderMD 08/29/2025 2:00 PM MOTOR AND GENERATOR BRUSH MAKER Treatment [facility], [facility] [[email or web address] [address] [place] [address] None, ProviderMD 09/05/2025 2:00 PM MOTOR AND GENERATOR BRUSH MAKER Treatment [place] at [facility], [facility] [[email or web address] [address] [place] [address] None, ProviderMD 09/12/2025 2:00 PM MOTOR AND GENERATOR BRUSH MAKER Treatment [place] at [facility], [place] [address] [place] [address] None, ProviderMD 09/19/2025 2:00 PM MOTOR AND GENERATOR BRUSH MAKER Treatment [place] at [facility], [facility] [[email or web address] [address] [place] [address] None, ProviderMD 09/26/2025 2:00 PM MOTOR AND GENERATOR BRUSH MAKER Treatment [place] at [facility], [facility] [[email or web address] [address] [place] [address] None, ProviderMD documented as of this encounter Visit Diagnoses Not on filedocumented in this encounter Additional Health Concerns Assessment Noted Time PHQ-9 Depression Total Score: 8 02/19/20 24 9:53 AM CDT documented as of this encounter Care Teams Batch Trucker Relationship Specialty Start Date End Date Luann Valdovinos NP [address] [place] [address] PCP - General NURSE PRACTITIONER 10/30/23 Romaine Decker MD Three [facility]. [address] [place] [address] Consulting Physician CARDIOVASCULAR DISEASE 06/20/24 Baljinder Morejon MD Three [facility]. [address] [place], [place] [address] Consulting Physician CLINICAL CARDIAC ELECTROPHYSIOLOGY 11/08/24 documented as of this encounter
--- OUTSIDE RECORDS SUMMARY | 2025-08-09 20:52 | XMS_ITS | Encounter Summary ---
Author Organization [facility] Address [facility] [place] [address] Care Team Providers Care Senior Graphic Designer Name Role Phone Luann Valdovinos NP Primary Care Provider [phone] Romaine Decker MD Unavailable [phone] Baljinder Morejon MD Unavailable Encounter Details Date Type Department Care Team (Late Contact Info) Description 07/03/2025 Therapy Plan [facility] [place] [address] Non-Staff, Provider Social History Tobacco Use Types Packs/Day Years Used Date Smoking Tobacco: Never Smokeless Tobacco: Never Alcohol Use Standard Drinks/Week Comments Yes 0 (1 standard drink = 0.6 oz pur e alcohol) rare, once or twice a year PHQ-2 Answer Date Recorded Patient Health Questionnaire-2 Score 0 04/05/2025 Comments No Sex and Gender Information Value Date Recorded Sex Assigned at Female 09/27/2024 2:16 PM WATER FITNESS INSTRUCTOR Legal Sex Female 6:54 PM CDT Gender Identity Female 02/22/2025 2:51 PM CDT Sexual Orientation Not on file 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 [facility] [address] [place] [address] 08/15/2025 2:00 PM WATER FITNESS INSTRUCTOR Treatment [place] at [facility], [address] [place] [address] None, ProviderMD 08/22/2025 2:00 PM WATER FITNESS INSTRUCTOR Treatment [place] at [facility], [facility] [address] [place] [address] None, ProviderMD 08/29/2025 2:00 PM WATER FITNESS INSTRUCTOR Treatment [place] at [facility], [facility] [address] [place] [address] None, ProviderMD 09/05/2025 2:00 PM WATER FITNESS INSTRUCTOR Treatment [place] at [facility], [facility] [address] [place] [address] None, ProviderMD 09/12/2025 2:00 PM WATER FITNESS INSTRUCTOR Treatment [place] at [facility], [place] [address] [place] [address] None, ProviderMD 09/19/2025 2:00 PM WATER FITNESS INSTRUCTOR Treatment [facility], [facility] [address] [place] [address] None, ProviderMD 09/26/2025 2:00 PM WATER FITNESS INSTRUCTOR Treatment [place] at [facility], [facility] [address] [place] [address] None, ProviderMD documented as of this encounter Visit Diagnoses Not on filedocumented in this encounter Additional Health Concerns Assessment Noted Time PHQ-9 Depression Total Score: 8 02/19/20 24 9:53 AM CDT documented as of this encounter Care Teams Senior Graphic Designer Relationship Specialty Start Date End Date Luann Valdovinos NP [address] [place] [address] PCP - General NURSE PRACTITIONER 10/30/23 Romaine Decker MD [facility]. [facility] [address] [place] [address] Consulting Physician CARDIOVASCULAR DISEASE 06/20/24 Baljinder Morejon MD [facility]. [facility] [address] [place], [place] [address] Consulting Physician CLINICAL CARDIAC ELECTROPHYSIOLOGY 11/08/24 documented as of this encounter
--- OUTSIDE RECORDS SUMMARY | 2025-08-09 20:52 | XMS_ITS | Encounter Summary ---
Author Organization [facility] Address [facility] [place] [address] Care Team Providers Care Box Feeder Name Role Phone Luann Valdovinos NP Primary Care Provider [phone] Romaine Decker MD Unavailable [phone] Baljinder Morejon MD Unavailable Encounter Details Date Type Department Care Team (Late Contact Info) Description 07/05/2025 Abstract [facility], [facility] [address] [place], [place] [address] Arelis Abraham, COMMUNICATIONS PROGRAMMER-C [facility]. 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 [address] [place] [address] 08/15/2025 2:00 PM BEADER Treatment [facility], [facility] [address] [place] [address] None, Provider, 08/22/2025 2:00 PM BEADER Treatment [facility], [facility] [address] [place] [address] None, Provider, 08/29/2025 2:00 PM BEADER Treatment [facility], [facility] [address] [place] [address] None, Provider, 09/05/2025 2:00 PM BEADER Treatment [place], [facility] [address] [place] [address] None, ProviderMD 09/12/2025 2:00 PM BEADER Treatment [facility], [facility] [address] [place] [address] None, Provider, 09/19/2025 2:00 PM BEADER Treatment [facility], [facility] [address] [place] [address] None, ProviderMD 09/26/2025 2:00 PM BEADER Treatment [facility] at [facility] [address], [facility] [address] [place] [address] None, Provider, documented as of this encounter Visit Diagnoses Not on filedocumented in this encounter Additional Health Concerns Assessment Noted Time PHQ-9 Depression Total Score: 8 02/19/20 24 9:53 AM CDT documented as of this encounter Care Teams Box Feeder Relationship Specialty Start Date End Date Luann Valdovinos NP [address] [place] [address] PCP - General NURSE PRACTITIONER 10/30/23 Romaine Decker MD [facility] [address] [place] [address] Consulting Physician CARDIOVASCULAR DISEASE 06/20/24 Bal[facility]inder [facility] MD [facility] [address] [place] [address] Consulting Physician CLINICAL CARDIAC ELECTROPHYSIOLOGY 11/08/24 documented as of this encounter
--- OUTSIDE RECORDS SUMMARY | 2025-08-09 20:52 | XMS_ITS | Encounter Summary ---
Author Organization [facility] Address [facility] [place] [address] Care Team Providers Care Shipper Receiver Name Role Phone Luann Valdovinos NP Primary Care Provider [phone] Romaine Decker MD Unavailable [phone] Baljinder Morejon MD Unavailable Encounter Details Date Type Department Care Team (Late Contact Info) Description 06/20/2025 [employer] Message Enc [facility], [address] [address] Romaine Decker MD [facility]. 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 [address] [place] [address] 08/15/2025 2:00 PM FREEZER TUNNEL OPERATOR Treatment [facility], [facility] [address] [place] [address] None, Provider, 08/22/2025 2:00 PM FREEZER TUNNEL OPERATOR Treatment [facility], [facility] [address] [place] [address] None, ProviderMD 08/29/2025 2:00 PM FREEZER TUNNEL OPERATOR Treatment [place] at [facility], [facility] [address] [place] [address] None, Provider, 09/05/2025 2:00 PM FREEZER TUNNEL OPERATOR Treatment [place] at [facility], [facility] [address] [place] [address] None, ProviderMD 09/12/2025 2:00 PM FREEZER TUNNEL OPERATOR Treatment [place] at [facility], [facility] [address] [place] [address] None, ProviderMD 09/19/2025 2:00 PM FREEZER TUNNEL OPERATOR Treatment [facility], [place] [address] [place] [address] None, ProviderMD 09/26/2025 2:00 PM FREEZER TUNNEL OPERATOR Treatment [place] at [facility], [address] [place] [address] None, Provider, documented as of this encounter Visit Diagnoses Not on filedocumented in this encounter Additional Health Concerns Assessment Noted Time PHQ-9 Depression Total Score: 8 02/19/20 24 9:53 AM CDT documented as of this encounter Care Teams Shipper Receiver Relationship Specialty Start Date End Date Luann Valdovinos NP [address] [place] [address] PCP - General NURSE PRACTITIONER 10/30/23 Romaine Decker MD [facility]. [facility] [address] [place] [address] Consulting Physician CARDIOVASCULAR DISEASE 06/20/24 Baljinder Morejon MD [facility]. [facility] [address] [place] [address] Consulting Physician CLINICAL CARDIAC ELECTROPHYSIOLOGY 11/08/24 documented as of this encounter
[2025-08-09 21:18] VITALS: BP 125/76; PULSE 77; RESP 16; TEMP 36.2; O2SAT 100
--- NOTE | 2025-08-09 23:33 | ED.EYEPROB ---
HPI - Eye Problem General Chief complaint: Eye Problems Stated complaint: L eye inuury Time Seen by Provider: 08/09/25 23:08 History of Present Illness HPI Narrative: 40-year-old female presenting to the emergency department today with left eye irritation after she got her left I poked by her dog. She feels a foreign body sensation in her left eye. No visual changes or trouble opening or eye. No trauma otherwise. No headache, vision changes. No nausea or vomiting. Has not tried anything besides washing the eye at home. States he feels like there is sand in her left eye. Otherwise in her normal state of health. No recent antibiotics. Does not wear contact lenses. Related Data Home Medications ?Medication ?Instructions ?Recorded ?Confirmed ?Last Taken ?Type albuterol sulfate 90 mcg/actuation 1 - 2 inh inhalation Q4-6H PRN 05/19/20 12/23/23 Unknown History aerosol inhaler Shortness Of Breath Or Wheezing cetirizine 10 mg tablet (Zyrtec) 20 mg PO BID 05/19/20 12/23/23 05/18/20 History epinephrine 0.3 mg/0.3 mL 0.3 mg IM ONCE 05/19/20 12/23/23 Unknown History injection, auto-injector (Auvi-Q) famotidine 40 mg tablet 40 mg PO BID 05/19/20 12/23/23 05/18/20 History drospirenone 3 mg-ethinyl 1 tablet PO DAILY 12/17/22 12/23/23 Unknown History estradiol 0.03 mg tablet tramadol 50 mg tablet 50 mg PO Q6H PRN 12/26/22 12/23/23 Unknown History adalimumab 40 mg/0.8 mL See Rx Instructions subcut .COMPLEX 05/14/23 12/23/23 Unknown History subcutaneous pen kit (Humira Pen) galcanezumab-gnlm 120 mg/mL 120 mg subcut MONTHLY 05/14/23 12/23/23 Unknown History subcutaneous pen injector (Emgality Pen) naltrexone 4.5 mg capsule mg PO 05/14/23 12/23/23 Unknown History hydroxychloroquine 200 mg tablet 200 mg PO BID 12/23/23 12/23/23 Unknown History onabotulinumtoxinA 200 unit 200 unit IM ONCE 12/23/23 12/23/23 Unknown History solution for injection (Botox) naltrexone 4.5 mg capsule mg PO 01/03/25 Unknown History tizanidine 2 mg capsule 2 mg PO TID PRN 01/03/25 Unknown History verapamil 120 mg tablet 120 mg PO DAILY 01/03/25 Unknown History Allergies Allergy/AdvReac Type Severity Reaction Status Date / Time budesonide Allergy Severe Chest Pain Verified 08/09/25 21:24 Quinolones Allergy Severe Other Verified 08/09/25 21:24 adhesive Allergy Intermediate Rash Verified 08/09/25 21:24 amitriptyline Allergy Intermediate Insomnia Verified 08/09/25 21:24 metronidazole Allergy Intermediate Other Verified 08/09/25 21:24 prednisolone Allergy Intermediate Palpitation Verified 08/09/25 21:24 s propranolol Allergy Intermediate Dry Mouth Verified 08/09/25 21:24 montelukast (From Singulair) AdvReac Intermediate Headache Verified 08/09/25 21:24 Review of Systems Review of Systems: As reviewed above in HPI All systems reviewed & are unremarkable except as noted in HPI and below PMFSH Past Medical History Medical History Screening mammogram, encounter for Autism Anxiety and depression Asthma Raynaud disease Tachycardia Rosacea Ankylosing spondylitis POTS (postural orthostatic tachycardia syndrome) Seronegative rheumatoid arthritis Heart disease Maryam-Danlos syndrome ADHD (attention deficit hyperactivity disorder) Chronic idiopathic urticaria TMJ (temporomandibular joint syndrome) Migraine Seasonal allergies Pelvic fracture age 18 Concussion Surgical History Surgical History No history of previous surgery Has a internal linq loop recorder Family History Family History Grandparent Diabetes mellitus maternal grandmother Acute myocardial infarction all grandparents Cerebrovascular accident maternal grandmother Breast cancer maternal grandmother Malignant tumor of urinary bladder paternal grandfather Other Malignant lung neoplasm maternal uncle paternal uncle Cervical cancer maternal aunt Maryam-Danlos syndrome sister Breast cancer maternal aunt Father Malignant tumor of urinary bladder Sibling Seronegative rheumatoid arthritis sister MTHFR mutation sister Social History Social History Smoking status: Never smoker Second hand tobacco smoke exposure: Yes Alcohol intake: never Substance use: former Substance use type: marijuana Last use: medical card rarely use Lack of Transportation: No Lack of Food: Never True Current Housing: I Have Housing Concerned About Future Housing: No Difficulty Paying Gas/Electric Bills: No Difficulty Paying for Meds: No Currently Unemployed: No Education: Associate Degree Difficulty w/ Childcare or Family Care: No Living arrangements: with family Additional living arrangements comments: Occupation/Education: occupation 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 Fluorescein dye and tetracaine applied. Tetracaine anesthetize the eye with resolution of patient's symptoms. She has a small corneal abrasion on the left upper outer aspect of her left eye. No Ely sign. No leakage of fluid. No other obvious injury. No retained foreign body underneath the eyelids or around the globe. ENT: Nares clear, no rhinorrhea or epistaxis. Mucous membranes moist. NECK: Supple. CHEST: No respiratory distress, symmetric chest rise ABDOMEN: Nondistended EXTREMITIES: Normal range of motion. SKIN: Warm, dry, no rash. NEURO: No deficits, alert x3 PSYCH: Normal mood Course Vital Signs Vital signs: Vital Signs Temperature 36.2 C L 08/09/25 21:18 Pulse Rate 77 08/09/25 21:18 Respiratory Rate 16 08/09/25 21:18 Blood Pressure 125/76 08/09/25 21:18 Pulse Oximetry 100 08/09/25 21:18 Oxygen Delivery Room Air 08/09/25 21:18 Temperature 36.2 C L 08/09/25 21:18 Pulse Rate 77 08/09/25 21:18 Respiratory Rate 16 08/09/25 21:18 Blood Pressure 125/76 08/09/25 21:18 Pulse Oximetry 100 08/09/25 21:18 Oxygen Delivery Room Air 08/09/25 21:18 MDM MDM Narrative Medical decision making narrative: 40-year-old female presenting to the emergency department today with left eye irritation after she got her left I poked by her dog. She feels a foreign body sensation in her left eye. No visual changes or trouble opening or eye. No trauma otherwise. No headache, vision changes. No nausea or vomiting. Has not tried anything besides washing the eye at home. States he feels like there is sand in her left eye. Otherwise in her normal state of health. No recent antibiotics. Does not wear contact lenses. Extraocular movements are intact, pupils are equal reactive to light 3 mm. Fluorescein dye and tetracaine applied. Tetracaine anesthetize the eye with resolution of patient's symptoms. She has a small corneal abrasion on the left upper outer aspect of her left eye. No Ely sign. No leakage of fluid. No other obvious injury. No retained foreign body underneath the eyelids or around the globe. Symptoms consistent with corneal abrasion. No sign of corneal perforation, ulcer or retained foreign body. Symptoms controlled with tetracaine. Given erythromycin eye drops and prescription azithromycin eyedrops for the next 7 days. Given follow-up instructions for Ophthalmology. Return with any emergent concerns. Differential Diagnosis Differential Diagnosis: Symptoms consistent with corneal abrasion. No sign of corneal perforation, ulcer or retained foreign body. Discharge Plan Discharge Clinical Impression: Corneal abrasion Patient Disposition: Home Condition: Stable Instructions: Antibiotic Form, Corneal Abrasion (DC) Additional Instructions: Examination reveals a small area of corneal abrasion in the left upper outer aspect of your left eye causing the foreign body sensation and pain. No signs of puncture and no signs of any complication at this time. Will need topical antibiotic eyedrops and pain medicine for full healing. Take bghw-sfe-yvxurgd or prescription pain medications for fever and pain control in addition to the topical eyedrops prescription. Return with any emergent concerns otherwise follow-up with Ophthalmology. Patient Language: Namibian Prescriptions: New AzaSite 1 % drops See Rx Instructions .ROUTE .COMPLEX 7 Days Qty: 2.5 0RF Rx Instructions: 1 drp into left eye ;(twice daily for two days, then once daily for the next five days) No Action tramadol 50 mg tablet 50 mg PO Q6H PRN Botox 200 unit recon soln 200 unit IM ONCE Rx Instructions: as a single dose hydroxychloroquine 200 mg tablet 200 mg PO BID drospirenone-ethinyl estradiol 3-0.03 mg tablet 1 tablet PO DAILY Emgality Pen 120 mg/mL pen injector 120 mg subcut MONTHLY naltrexone 4.5 mg capsule PO Humira Pen 40 mg/0.8 mL pen injector kit See Rx Instructions subcut .COMPLEX Rx Instructions: inject one - 40 mg/0.8 mL pen every 2 weeks subcut albuterol sulfate 2.5 mg /3 mL (0.083 %) solution for nebulization 2.5 mg inhalation Q6H Qty: 90 0RF naltrexone 4.5 mg capsule PO tizanidine 2 mg capsule 2 mg PO TID PRN verapamil 120 mg tablet 120 mg PO DAILY cetirizine [Zyrtec] 10 mg Tablet 20 mg PO BID famotidine 40 mg Tablet 40 mg PO BID epinephrine [Auvi-Q] 0.3 mg/0.3 mL Auto-Injector 0.3 mg IM ONCE albuterol sulfate 90 mcg/actuation HFA aerosol inhaler 1 - 2 inh INHALATION Q4-6H PRN (Reason: Shortness Of Breath Or Wheezing) Follow-up/Referrals: Ashlie,Francois De Souza DO [Primary Care Provider, Internal Medicine] Time of Disposition: 23:32
--- OUTSIDE RECORDS SUMMARY | 2025-08-09 23:39 | XMS_ITS | Clinical Summary ---
Author Organization [facility] Address [address] [place] [address] Care Team Providers Care Heel Cementer Machine Name Role Phone Luann Valdovinos APRN-CONCRETE PAVER Primary Care Provi murtaza Pooja Moe MD Unavailable [phone] Source Comments [facility],non-owned Affiliates and Associated Physician Practices is amultiple site organization consisting of ambulatory clinics and hospital sitesin [place], [place], [place] and [place]. This disclosure is being madepursuant to the Care Everywhere program and may not contain all information available regarding this patient. Last updated 18.[facility] Allergies Active Allergy Reactions Criticality Noted Date Comments Amitriptyline Other Low 02/27/2021 Couldn't sleep Clqqprh-Ehejxyrjvlj-Crezy terol Other Medium 08/08/2021 [place] burning in chest Budesonide-Formoterol Fumarate Other,Palpitations Medium 08/08/2021 [place] burning in chest Ciprofloxacin Unknown 10/30/2023 Cyclobenzaprine [...] every 6 hours as needed Active Tiotropium [place] Monohydrate (Spiriva Respimat) 1.25 MCG/ACT AERS Inhale [...] daily 90 tablet 05/03/20 25 025 Discontin ued([facility]) Hospital, Clinic, or Other Facility Administered Medication [...] Department Care Team Description 08/08/2025 2:00 PM SNOWSPORT INSTRUCTOR Office Visit [facility] [address] [place] [address] Pooja Moe MD Chronic migraine without aura without status migrainosus, not intractable (Primary Dx); Cramps, extremity; POTS (postural orthostatic tachycardia syndrome); EDS (Maryam-Danlos syndrome) (HCC); Bilateral sciatica; Small fiber neuropathy; Other fatigue 08/02/2025 Refill [facility] [address] [place] [address] Candy Christensen, SUCTION PLATE ROLLER HAND-CONCRETE PAVER Refill Request 07/26/2025 10:15 AM SNOWSPORT INSTRUCTOR Procedure visit [facility] [address] [place] [address] Candy Christensen, SUCTION PLATE ROLLER HAND-CONCRETE PAVER Chronic migraine without aura without status migrainosus, [...] on file Legal Sex Female 9:35 AM SNOWSPORT INSTRUCTOR Gender Identity Not on file Sexual Orientation Not on file 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 Not on file Not on file Not on file Last Filed Vital Signs Vital Sign Reading Time Taken Comments Blood Pressure 115/66 08/08/2025 2:10 PM SNOWSPORT INSTRUCTOR Pulse 71 08/08/2025 2:10 PM SNOWSPORT INSTRUCTOR Temperature - - Respiratory Rate - - Oxygen Saturation - - Inhaled Oxygen Concentration - - Weight 65.8 kg (145 lb) 08/08/2025 2:10 PM SNOWSPORT INSTRUCTOR Height 160 cm (5' 3) 08/08/2025 2:10 PM SNOWSPORT INSTRUCTOR Body Mass Index 25.69 08/08/2025 2:10 PM SNOWSPORT INSTRUCTOR Plan of Treatment Upcoming Encounters Date Type Department Care Team (Late st Contact Info) Description 10/18/2025 9:15 AM SNOWSPORT INSTRUCTOR Procedure visit [facility] [address] [place] [address] Candy Christensen, SUCTION PLATE ROLLER HAND-CONCRETE PAVER [address] [place] [address] 02/07/2026 10:00 AM CDT Office Visit [facility] [address] [place] [address] Candy Christensen, SUCTION PLATE ROLLER HAND-CONCRETE PAVER [address] [place] [address] Health Maintenance Due Date Last Done Comments [...] complete this topic Insurance ANTHEM Care Teams Heel Cementer Machine Relationship Specialty Start Date End Date Luann Valdovinos, MARLON-CONCRETE PAVER [address] [place] [address] PCP - General Nurse Practitioner 12/07/23 Pooja Moe MD [address] [facility] [address] [facility] [address] [place], [place] [id number] Neurology 02/22/24
--- OUTSIDE RECORDS SUMMARY | 2025-08-09 23:39 | XMS_ITS | Clinical Summary ---
Author Organization [facility] Address [address] [place] [address] Care Team Providers Care Forest Fire Specialist Supervisor Name Role Phone Luann Valdovinos MD Primary Care Provider [phone] JeancarlosDarlene MD Unavailable [phone] Allergies Active Allergy Reactions Criticality Noted Date Comments Adhesive Rash Medium 05/28/2020 Amitriptyline Other (See comments),Unknown Low 02/27/2021 Couldn't sleep Adltpafjeh-Fdxtwkkx-Iqf moterol Other (See comments),Chest tightness Medium 08/08/2021 [place] burning in chest Budesonide-Formoterol Palpitations,Othe r (See comments),Unknown Medium 08/08/2021 [place] burning in chest Ciprofloxacin Unknown 10/30/2023 Must [...] Department Care Team Description 08/09/2025 1:45 PM HEAT TREATING FURNACE TENDER Therapy [facility] Outpatient Speech Pathology [address] [place] [address] [address] [place] [phone] Vidhya Quick, AMARIS Dysphagia, unspecified type (Primary Dx) 08/09/2025 1:07 PM HEAT TREATING FURNACE TENDER Hospital Encounter [facility] [address] [place] [address] Dysphagia, oropharyngeal 07/17/2025 11:40 AM HEAT TREATING FURNACE TENDER Therapy [facility] Otolaryngology [address] [place] [address] [address] [place] [phone] Elisha Wilson, AMARIS Dysphonia (Primary Dx); Tonsillolith; Chronic tonsillitis 07/17/2025 11:40 AM HEAT TREATING FURNACE TENDER Office Visit [facility] Medicine ENT [address] [place] [address] [address] [address] Darren Tai MD Dysphagia, oropharyngeal (Primary Dx); Tinnitus of both ears; Dysphonia 07/06/2025 10:00 AM HEAT TREATING FURNACE TENDER Therapy [facility] Otolaryngology [address] [place] [address] [address] [address] Betsy Willis, AMARIS Dysphonia (Primary Dx) 06/23/2025 Results Follow-Up [facility] Pediatric [facility] [address] [place] [address] [place] [id number] Gracia Barney, [facility] external report 06/15/2025 Orders Only [facility] Uzma Garcia MD 05/24/2025 3:00 PM CDT Therapy [facility] Medicine Otolaryngology [address] [place] [address] [place] [phone] Betsy Willis SLP Dysphonia (Primary Dx); Tonsillolith; Chronic tonsillitis 05/24/2025 3:00 PM CDT Office Visit [facility] - [facility] Medicine ENT [address] [place] [address] [place] [phone] Darren Tai MD Chronic tonsillitis (Primary Dx) [...] Father Mary COPD Father Mary Cancer Father [place] Heart disease Father Mary Aneurysm Maternal Grandfather [...] Read Routine (OP Routine) 08/09/2025 2:10 PM HEAT TREATING FURNACE TENDER Dysphagia, oropharyngeal GENOMICS EXTERNAL REPORT Routine 06/15/2025 1:16 PM CDT SCAN - LABS 06/15/2025 from Last 3 Months Results * [place] Modified Barium Swallow W Video (08/09/2025 2:10 PM HEAT TREATING FURNACE TENDER) Anatomical Region Laterality Modality Head and Neck N/A Radio Fluoroscop y 08/09/2025 2:42 PM HEAT TREATING FURNACE TENDER Impressions 08/09/2025 2:43 PM HEAT TREATING FURNACE TENDER The swallowing mechanism is normal; see above [...] Geena Davis M.D. Narrative 08/09/2025 2:43 PM HEAT TREATING FURNACE TENDER EXAMINATION: MODIFIED BARIUM SWALLOW HISTORY: Dysphagia. TECHNIQUE: [...] BL CHOICE PRF [place] Care Teams Forest Fire Specialist Supervisor Relationship Specialty Start Date End Date Luann Valdovinos MD PCP - General Nurse Practitioner 01/15/24 Darlene Arshad MD [address] [place] [address] Surgeon Medical Oncology 07/14/25
--- OUTSIDE RECORDS SUMMARY | 2025-08-09 23:39 | XMS_ITS | Clinical Summary ---
Author Organization [facility] Address [address] [place] [address] Care Team Providers Care Garment Looper Name Role Phone Unavailable Primary Care Provider Unavailabl e Social History Tobacco Use Types Packs/Day Years Used Date Smoking Tobacco: Never Assessed Comments Unknown Sex and Gender Information Value Date Recorded Sex Assigned at Not on file Legal Sex Female 9:58 AM RISK ANALYST Gender Identity Not on file Sexual Orientation Not on file Plan of Treatment Health Maintenance Due Date Last Done Comments DTAP/TDAP/TD VACCINES (1 - Tdap) 2006 HEPATITIS B VACCINES (1 of 3 - 19+ 3-dose series) 01/23 HPV/Cotest (21-29) 02/11/2008 CERVICAL CANCER SCREENING 2017 HPV/Cotest (30-65) 2017 PAP SMEAR 2017 INFLUENZA VACCINE (#1) 2025 08/24/2020 HPV VACCINES (No Doses Required) Completed Insurance [facility] [employer]
[2025-08-09] MEDS: ERYTHROMYCIN OPHTH OINTMENT 1 GM TUBE 1 APPLIC EACH EYE (23:48)
== END 2025-08-09 23:53 | disposition home or self-care (01) ==
LOC: ANHED 23:36
PROVIDERS: Emergency Provider Student in an Organized Health Care Education/Training Program; PCP Family Medicine
DX: S05.02XA Injury of conjunctiva and corneal abrasion without foreign body, left eye, initial encounter (principal); W54.1XXA Struck by dog, initial encounter
CPT/HCPCS: 99283; A9270